=== PATIENT | female | born 1940 | race Caucasian/White ===

== ENCOUNTER → 2017-01-29 | Outpatient (CLI) | payer OTHER ==
[~2017-01-29] MED LIST: ALEN70TA4 PO; ASPCH81X PO; CELE100C PO; CYAN500T13 SL; ERGO500037 PO; ESCI10TA17 PO; HYDR1TAB2 PO; IBUP-1277 PO; LATA0.5S OPB; LISI-729 PO; METO1TAB31 PO; MONT1TAB3 PO; NVLGI SC; NXM/40 PO; TOLT4CAP PO
--- NOTE | 2017-01-29 11:23 | DIAGNOSTIC IMAGING REPORT ---
ABDOMEN COMPLETE (US) CLINICAL HISTORY: ANEMIA, SPLENOMEGALY COMPARISON STUDY: 07/11/2016 FINDINGS: There is a 12 mm left lobe hepatic cyst. The liver appears otherwise normal. The gallbladder surgically absent. The pancreas appears sonographically normal. There is no ductal dilatation. The common bile duct measures 5 mm. The spleen is enlarged measuring 18 cm. There is no evidence of abdominal aortic dilatation. No abnormalities of the IVC are visualized. The right kidney measures 14.4 cm in length. There are multiple right renal cysts including a cyst arising from the lower pole of the right kidney measuring 12.5 cm in maximal diameter. The left kidney measures 11.9 cm in length. No left renal masses are visualized. There is no hydronephrosis. IMPRESSION: 1. Stable splenomegaly (18 cm ) 2. Surgically absent gallbladder 3. 12 mm left lobe hepatic cyst 4. Right renal cysts measuring 12.5 cm and 5.3 cm. Electronically signed by: Rashel Leung M.D. 01/29/2017 11:22 AM Dictated Date/Time: 01/29/2017 11:18 AM
== END | disposition home or self-care (01) ==
LOC: C.ULTR 10:32
PROVIDERS: ATTEND Internal Medicine Hematology & Oncology
DX: R16.1 Splenomegaly, not elsewhere classified (principal); D64.9 Anemia, unspecified; N28.1 Cyst of kidney, acquired; K76.89 Other specified diseases of liver; Z90.49 Acquired absence of other specified parts of digestive tract

== ENCOUNTER → 2017-05-10 | Outpatient (CLI) | payer OTHER ==
[2017-05-10 15:43] LABS: HEMATOCRIT 34.2 % (37-47)
[2017-05-11 07:23] LABS: ESTIMATED AVERAGE GLUCOSE 91 mg/dl; HA1C FLAG Normal (Normal)
== END | disposition home or self-care (01) ==
LOC: C.LAB1850 14:25
PROVIDERS: ATTEND Nurse Practitioner Adult Health
DX: E11.39 Type 2 diabetes mellitus with other diabetic ophthalmic complication (principal)

== ENCOUNTER → 2017-05-17 | Outpatient (CLI) | payer OTHER ==
[2017-05-17 15:35] LABS: ALT/SGPT 16 U/L (12-78); AST/SGOT 12 U/L (15-37); BLOOD UREA NITROGEN 15 mg/dl (7-18); BUN/CREATININE RATIO 16.7 (10-20); CALCIUM 8.9 mg/dl (8.5-10.1); CARBON DIOXIDE 31 mmol/L (21-32); CHLORIDE 103 mmol/L (98-107); CHOLESTEROL 96 mg/dl (0-200); CREATININE 0.88 mg/dl (0.60-1.20); GLUCOSE 118 mg/dl (70-99); POTASSIUM 3.8 mmol/L (3.5-5.1); SODIUM 139 mmol/L (136-145); TRIGLYCERIDES 109 mg/dl (0-150); VERY LOW DENSITY LIPOPROT CALC 22 mg/dl
[2017-05-17 15:45] LABS: ALB/GLOB RATIO 1.1 (0.9-2); ALKALINE PHOSPHATASE 61 U/L (45-117); CHOLESTEROL/HDL RATIO 2.7; HDL CHOLESTEROL 35 mg/dl
[2017-05-17 15:49] LABS: RATIO 8.1 mcg/mg (0-30.0)
== END | disposition home or self-care (01) ==
LOC: C.LAB1850 14:16
PROVIDERS: ATTEND Nurse Practitioner Adult Health
DX: E78.5 Hyperlipidemia, unspecified (principal); E11.39 Type 2 diabetes mellitus with other diabetic ophthalmic complication; E11.319 Type 2 diabetes mellitus with unspecified diabetic retinopathy without macular edema; Z79.4 Long term (current) use of insulin; I10 Essential (primary) hypertension; K76.0 Fatty (change of) liver, not elsewhere classified; K31.84 Gastroparesis

== ENCOUNTER → 2017-08-26 | Outpatient (CLI) | payer OTHER ==
[~2017-08-26] MED LIST changes: +METO-478 PO; -METO1TAB31 PO
[2017-08-26 17:04] LABS: CREATININE 1.04 mg/dl (0.60-1.20)
[2017-08-27 07:13] LABS: ESTIMATED AVERAGE GLUCOSE 85 mg/dl; HA1C FLAG Normal (Normal)
== END | disposition home or self-care (01) ==
LOC: C.LAB1850 15:30
PROVIDERS: ATTEND Nurse Practitioner Adult Health
DX: E11.39 Type 2 diabetes mellitus with other diabetic ophthalmic complication (principal); I10 Essential (primary) hypertension; Z79.4 Long term (current) use of insulin

== ENCOUNTER 2017-11-20 05:33 | Inpatient (IN) | payer OTHER ==
[2017-10-31 12:10] VITALS: BMI 34.0
--- NOTE | 2017-10-31 12:54 | PAT Medication Instructions ---
Service Date Oct 31, 2017. Current Home Medication List Aspirin (Aspirin Chewable), 81 MG PO QAM Brimonidine Tartrate (Alphagan P Oph), 1 DROP OP QAM Celecoxib (Celebrex), 200 MG PO QAM Cyanocobalamin (Vitamin B12 500MCG), 500 MCG PO QAM Ergocalciferol (Vitamin D 20950 Unit), 50,000 UNIT PO WK Escitalopram (Lexapro), 10 MG PO HS Esomeprazole Magnesium (Nexium), 40 MG PO QAM Ibuprofen (Advil), 400 MG PO Q6-8HR PRN Insulin Aspart (novoLOG INSULIN PUMP ), 1 EA N/A UD Latanoprost (Xalatan 0.005% Oph Jeri), 1 DROP OPB HS Lisinopril (Zestril), 5 MG PO QAM Metoprolol Tartrate (Lopressor) (Lopressor), 25 MG PO QAM Montelukast Sodium (Singulair), 10 MG PO QAM Multivitamin (Multivitamin), 1 TAB PO QAM Naproxen (Aleve), 220 MG PO QPM, Solifenacin (Vesicare), 10 MG PO QAM [Calcium], 1 TAB PO QAM Medication Instructions For Your Scheduled Surgery - Check with surgeon for instructions: Naproxen (Aleve), 220 MG PO QPM, Celecoxib (Celebrex), 200 MG PO QAM Ibuprofen (Advil), 400 MG PO Q6-8HR PRN - Check with surgeon and park landscape architect for instructions: Aspirin (Aspirin Chewable), 81 MG PO QAM - Hold the following medications the morning of surgery: Cyanocobalamin (Vitamin B12 500MCG), 500 MCG PO QAM Ergocalciferol (Vitamin D 80441 Unit), 50,000 UNIT PO WK Lisinopril (Zestril), 5 MG PO QAM Montelukast Sodium (Singulair), 10 MG PO QAM Multivitamin (Multivitamin), 1 TAB PO QAM Solifenacin (Vesicare), 10 MG PO QAM [Calcium], 1 TAB PO QAM - Take the following medications the morning of surgery with a sip of water: Metoprolol Tartrate (Lopressor) (Lopressor), 25 MG PO QAM Esomeprazole Magnesium (Nexium), 40 MG PO QAM Brimonidine Tartrate (Alphagan P Oph), 1 DROP OP QAM - Take the following medications as scheduled the night before surgery: Latanoprost (Xalatan 0.005% Oph Jeri), 1 DROP OPB HS Escitalopram (Lexapro), 10 MG PO HS - For Insulin Dependent Diabetic patients: Test blood sugar A.M. of surgery. Set insulin pump to basal setting (no bolus dose AM day of surgery. If you have any questions please call us at [phone] or [phone] or [phone]
[2017-10-31 13:22] LABS: EOS % 0.8 %; EOS ABS # 0.03 K/uL (0-0.5); HEMATOCRIT 34.1 % (37-47); HEMOGLOBIN 10.9 g/dL (12.0-16.0); IG# 0.03 K/uL (0.00-0.02); LYMPH % 24.5 %; LYMPH ABS # 0.92 K/uL (1.2-3.4); MEAN CELL VOLUME 91.9 fL (80-100); MEAN CORPUSCULAR HEMOGLOBIN 29.4 pg (25-34); MEAN PLATELET VOLUME 9.3 fL (7.4-10.4); MONO % 6.4 %; MONO ABS # 0.24 K/uL (0.11-0.59); NEUT % 67.5 %; NEUT ABS # 2.53 K/uL (1.4-6.5); PLATELET COUNT 108 K/uL (130-400); RED CELL DISTRIBUTION WIDTH SD 46.6 fL (36.4-46.3); WHITE BLOOD COUNT 3.75 K/uL (4.8-10.8)
[2017-10-31 13:28] LABS: PTT PATIENT 26.7 SECONDS (21.0-31.0)
--- NOTE | 2017-10-31 14:12 | DIAGNOSTIC IMAGING REPORT ---
TWO VIEW CHEST CLINICAL HISTORY: Preoperative examination. FINDINGS: PA and lateral chest radiographs are compared to study dated 11/06/2012. The heart is top normal for projection. The mediastinal contour is within normal limits. There is mild elevation of the right hemidiaphragm. The lungs and pleural spaces are clear. There is no pneumothorax. The skeletal structures are osteopenic. The bony thorax appears intact. IMPRESSION: No active disease in the chest. Electronically signed by: Robert Kruger M.D. 10/31/2017 2:11 PM Dictated Date/Time: 10/31/2017 2:11 PM
[2017-11-01 06:11] LABS: HEMOGLOBIN A1C 4.7 % (4.5-5.6)
--- NOTE | 2017-11-19 21:36 | History and Physical ---
History & Physical Date Nov 19, 2017. Chief Complaint right ankle pain History of Present Illness The patient is a 77 year old female with complaints of a 2 year hx of right ankle pain. She has been treated conservatively for ankle arthritis, however she has failed all conservative tx's. She is now being set up for a total ankle replacement. Past Medical/Surgical History PMH: HTN, hx of irregular heart beat, sleep apnea with use of a CPAP, Acid reflux, obesity, hx of kidney stones, cirrhosis social hx: Denies tobacco and alcohol use Past surgical hx: cholecystectomy, hysterectomy, bowel resections x 4, kidney stone surgeries, bilateral cataract surgeries, bilateral glaucoma surgeries, ileostomy Allergies Coded Allergies: Latex1 -Allergic Contact Dermititis (Verified Allergy, Intermediate, RASH LOCALIZED, 10/31/17) Erythromycin (Verified Allergy, Mild, RASH, 10/31/17) Quinolones (Verified Allergy, Mild, RASH, 10/31/17) Replaces CIPRO HC Chlorhexidine (Verified Allergy, Unknown, SKIN BLISTERS, 10/31/17) Ciprofloxacin (Verified Allergy, Unknown, RASH, 10/31/17) Isopropyl Alcohol (Verified Allergy, Unknown, SKIN BLISTERS, 10/31/17) Hydromorphone (Verified Adverse Reaction, Intermediate, RASH, 10/31/17) Iron (Verified Adverse Reaction, Intermediate, CHEST PAIN, IRON DEXTRAN, 10/31/17) Morphine (Verified Adverse Reaction, Unknown, RASH -HIVE LIKE, 10/31/17) Home Medications Scheduled Aspirin (Aspirin Chewable), 81 MG PO QAM Brimonidine Tartrate (Alphagan P Oph), 1 DROP OP QAM Celecoxib (Celebrex), 200 MG PO QAM Cyanocobalamin (Vitamin B12 500MCG), 500 MCG PO QAM Ergocalciferol (Vitamin D 20466 Unit), 50,000 UNIT PO WK Escitalopram (Lexapro), 10 MG PO HS Esomeprazole Magnesium (Nexium), 40 MG PO QAM Ibuprofen (Advil), 400 MG PO Q6-8HR PRN Insulin Aspart (novoLOG INSULIN PUMP ), 1 EA N/A UD Latanoprost (Xalatan 0.005% Oph Jeri), 1 DROP OPB HS Lisinopril (Zestril), 5 MG PO QAM Metoprolol Tartrate (Lopressor) (Lopressor), 25 MG PO QAM Montelukast Sodium (Singulair), 10 MG PO QAM Multivitamin (Multivitamin), 1 TAB PO QAM Naproxen (Aleve), 220 MG PO QPM, Solifenacin (Vesicare), 10 MG PO QAM [Calcium], 1 TAB PO QAM Physical Examination Skin: warm/dry, no rash Eyes: normal inspection ENT: normal ENT inspection Head: normocephalic, atraumatic Neck: supple, no adenopathy, trachea midline Respiratory/Chest: lungs clear, normal breath sounds, no respiratory distress Cardiovascular: regular rate, rhythm, no murmur Abdomen / GI: normal bowel sounds, non tender Extremities: + pertinent finding (Antalgic right gait. Right ankle: swelling anterior and posterior ankle. Tender at the anterior ankle. Painful PROM. Limited ROM, particularly with dorsiflexion.) Neurologic/Psych: no motor/sensory deficits, alert, oriented x 3 Diagnosis Right ankle osteoarthritis Right ankle Achilles contracture Plan of Treatment Recommend a right ankle STAR total ankle replacement, perc. INDIGO, application PRP. All potential risks, benefits, complications, alternatives, and rehab have been discussed with the patient and she wishes to proceed. She will be scheduled for 11.20.17 with plan for ASA 81 mg BID x 30 days for DVT prophylaxis.
[~2017-11-20] VITALS: Ht 165.1 cm; Wt 93.8 kg
[2017-11-20] VITALS (8 sets, daily range): BP systolic 104–130; BP diastolic 59–75; PULSE 81–104; TEMP 36.5–36.9; O2SAT 91–97; Ht 165.1 cm; Wt 93.8 kg
[~2017-11-20 05:33] MED LIST changes: -ALEN70TA4 PO; +BRIM0.1S OP; +CALC-51 PO; +CYAN500T13 PO; -CYAN500T13 SL; -HYDR1TAB2 PO; +INSPMPNVLG; -METO-478 PO; +METO25TA56 PO; +MULT-506 PO; +NAPR1TAB9 PO; -NVLGI SC; +SOLI10TA2 PO; -TOLT4CAP PO
[2017-11-20] MEDS ORDERED: GABAPENTIN 300 MG CAP PO SCH (06:00)
[2017-11-20] MEDS ORDERED: METOCLOPRAMIDE HCL 10 MG TAB PO SCH (06:00)
[2017-11-20] MEDS ORDERED: FAMOTIDINE 20 MG TAB PO SCH (06:00)
[2017-11-20] MEDS ORDERED: ACETAMINOPHEN 500 MG TAB PO SCH (06:00)
[2017-11-20] MEDS ORDERED: CeleBREX 200 MG CAP PO SCH (06:00)
[2017-11-20] MEDS ORDERED: DEXAMETHASONE 4 MG TAB PO SCH (06:00)
[2017-11-20] MEDS ORDERED: ROPIVACAINE 5MG/ML 30 ML 150 MG, BUPIVACAINE 0.5% MPF INJ 30 ML, EpINEphrine HCL INJ 0.... INFIL SCH ×8 (06:00)
[2017-11-20] MEDS ORDERED: CEFAZOLIN 2000MG IV PUSH 10 ML IV SCH (06:00)
[2017-11-20] MEDS ORDERED: LACTATED RINGER'S 1000ML 1,000 ML IV SCH (06:00)
[2017-11-20] MEDS ORDERED: LACTATED RINGER'S 1000ML IV SCH (06:00)
[2017-11-20] MEDS ORDERED: CLINDAMYCIN 600 MG/54 ML D5W IV SCH (06:00)
[2017-11-20] MEDS ORDERED: BUPIVACAINE 0.25% 30 ML VIAL ONE (06:19)
[2017-11-20] MEDS ORDERED: ROPIVACAINE 0.5% 5 MG/ML 30 ML VIAL ONE (06:19)
[2017-11-20] MEDS ORDERED: THROMBIN 5000 UNITS KIT ONE (06:53)
[2017-11-20] MEDS ORDERED: CALCIUM CHLORIDE 10% 10 ML SYR ONE (06:53)
[2017-11-20] MEDS ORDERED: BACITRACIN 50000 UNIT VIAL ONE (06:53)
[2017-11-20] MEDS ORDERED: FENTANYL CITRATE INJ 50 MCG/1 ML 2 ML VIAL ONE (06:59)
[2017-11-20] MEDS ORDERED: MIDAZOLAM HCL 1 MG/ML 2ML VIAL ONE (06:59)
[2017-11-20] MEDS ORDERED: EpHEDrine SULFATE INJ 50 MG/ML AMP IV PRN (07:30)
[2017-11-20] MEDS ORDERED: ATROPINE SULFATE 0.1 MG/ML 5ML SYR IV PRN (07:30)
[2017-11-20] MEDS ORDERED: ONDANSETRON INJ 2 MG/ML 2 ML VIAL IV PRN ×2 (07:30→12:00)
[2017-11-20] MEDS ORDERED: PHENYLEPHRINE 100MCG/ML 5ML SYR IV PRN (07:30)
[2017-11-20] MEDS: TRANEXAMIC ACID INJ 1,000 MG in SYRINGE 0 ML IV SCH ×2 (07:40→13:59)
--- NOTE | 2017-11-20 07:47 | History & Physical Bridge Note ---
H&P Re-Evaluation Bridge Note: I have examined the patient, reviewed the History & Physical and in the interval since the performance of the History & Physical I have noted the following changes of clinical significance: No changes noted
[2017-11-20] MEDS ORDERED: PROPOFOL IV EMULSION 10 MG/ML 20 ML VIAL IV ONE (09:50)
[2017-11-20] MEDS ORDERED: LIDOCAINE HCL 2% 2 ML VIAL (20MG/ML) ONE (09:50)
[2017-11-20] MEDS ORDERED: GLYCOPYRROLATE INJ 0.2 MG/ML VIAL ONE (09:50)
[2017-11-20] MEDS ORDERED: ROCURONIUM BROMIDE 10 MG/ML 5 ML VIAL IV ONE (09:50)
[2017-11-20] MEDS ORDERED: NEOSTIGMINE METHYLSULFATE 5 MG/5 ML SYR ONE (09:50)
--- NOTE | 2017-11-20 11:11 | [facility] Post Operative Brief Note ---
Immediate Operative Summary Operative Date Nov 20, 2017. Pre-Operative Diagnosis Right ankle DJD, Ankle osteoarthritis Right ankle Achilles contracture Post-Operative Diagnosis Right ankle DJD, Ankle osteoarthritis Right ankle Achilles contracture Procedure(s) Performed 1. Right STAR Total Ankle Arthroplasty, 2. Application of Platelet Rich Plasma, 3. Percutaneous Tendon Achilles Lengthening Surgeon Dr. Florian Bobby Acquisitions Assistant Surgeon(s) Daniel Blair PA-C Estimated Blood Loss 25 ML Findings see dict Specimens None per Surgeon Drains HV x 1 Anesthesia GETT w/ popliteal block and adductor canal block Complication(s) None Disposition Recovery Room / PACU
--- NOTE | 2017-11-20 11:29 | DIAGNOSTIC IMAGING REPORT ---
R ANKLE 2 VIEWS CLINICAL HISTORY: RT TOTAL ANKLE COMPARISON STUDY: No previous studies for comparison. Fluoroscopy time: 2.14 minutes. FINDINGS: 2 fluoroscopic images demonstrate findings consistent with a right tibiotalar joint arthroplasty. Hardware is intact. Surgical drain is in place. There is no acute fracture. A few skin paresh project posterior to the distal talus. IMPRESSION: Expected findings following right tibiotalar joint arthroplasty. Electronically signed by: Reno Phelps M.D. 11/20/2017 11:28 AM Dictated Date/Time: 11/20/2017 11:27 AM
[2017-11-20] MEDS ORDERED: NovoLOG INSULIN PUMP SCH (12:00)
[2017-11-20] MEDS ORDERED: ZOLPIDEM TARTRATE 5 MG TAB PO PRN (12:00)
[2017-11-20] MEDS ORDERED: BISACODYL 10 MG SUPP PR PRN (12:00)
[2017-11-20] MEDS ORDERED: SODIUM CHLORIDE 0.9% IV SCH (12:00)
[2017-11-20] MEDS ORDERED: MAGNESIUM HYDROXIDE SUSP 30 ML UDC PO PRN (12:00)
[2017-11-20] MEDS ORDERED: SOD PHOSPHATE/SOD BIPHOSPHATE ENEMA 132 ML BTL PR PRN (12:00)
[2017-11-20] MEDS ORDERED: CEFAZOLIN IV SCH (12:00)
[2017-11-20] MEDS ORDERED: ALUMINUM/MAGNESIUM/SIMETH (MAALOX MAX) 30 ML UDC PO PRN (12:00)
--- NOTE | 2017-11-20 12:08 | OPERATIVE REPORT ---
DATE OF OPERATION: 11/20/2017 PREOPERATIVE DIAGNOSES: 1. Right ankle degenerative joint disease. 2. Osteoarthritis of the right ankle. 3. Achilles tendon contracture. POSTOPERATIVE DIAGNOSES: Same. PROCEDURE: 1. Right STAR total ankle replacement using a size extra small talus, a medium sized tibia and a 7-mm polyethylene. 2. Percutaneous tendon Achilles lengthening. 3. Application of platelet rich plasma concentrate. SURGEON: Dr. Florian Bobby. POULTRY HATCHERY LABORER: Daniel Blair PA-C, who was present for patient positioning, sterile prep and drape, management of retractors and instruments. He was present through the critical portions of the case including wound closure, application of sterile dressing and transport of the patient to recovery. ANESTHESIA: General endotracheal tube with popliteal block and adductor canal block, right lower extremity. SPECIMENS: Bone and tissue. DRAINS: Hemovac x1. COMPLICATIONS: None. BLOOD LOSS: 25 mL. PERTINENT HISTORY: This is a 77-year-old female who had chronic progressive and ongoing worsening of right ankle degenerative joint disease and pain with complete loss of joint space, marginal osteophytes and subchondral sclerosis on the radiographs. She had attempted and failed all conservative measures, including brace application, use of an assistive device, anti-inflammatories, rest, activity modification, lifestyle modification and intra-articular injections. She is scheduled for surgery as indicated. All potential risks, benefits, complications, alternatives, rehab, potential for incomplete relief of symptoms, need for further surgery, DVT, PE, , persistent pain, swelling, scarring, weakness, neurovascular injury, wound complications, hardware failure, nonunion, and malunion were discussed with the patient. The patient decided to proceed with the procedure as indicated. DESCRIPTION OF PROCEDURE: The patient was taken to the operative suite after popliteal block was administered. The patient was placed supine on the operating room table. Tourniquet was applied over the right lower extremity. After the patient was anesthetized, LMA was placed. The right lower extremity was then sterilely prepped and draped in the usual sterile fashion [id number], elevated and exsanguinated with an Esmarch bandage, and tourniquet inflated to 350 mmHg. An 11 blade scalpel was used to make a 3-part percutaneous fractional lengthening of the posterior Achilles tendon. Palpable partial release and relative lengthening of the Achilles was noted. The 3 small incisions were closed with skin paresh. Next, a 15-blade scalpel incision made in the midline of the right ankle taking care to identify the tibialis anterior. The incision was made lateral to the tibialis anterior and centered over the extensor hallucis longus tendon. The incision was deepened through subcutaneous tissue. Meticulous hemostasis was achieved with electrocautery. Full-thickness skin flaps were developed. Superficial peroneal nerve was identified, retracted, and protected. Next, the extensor retinaculum was incised along the skin incision to the lateral aspect of the tibialis anterior. Tibialis anterior was retracted medially. The extensor hallucis longus and the neurovascular bundle beneath were retracted laterally. The small crossing vessels were cauterized. The anterior capsule was then incised in its midline and then elevated medially and laterally with electrocautery. There was noted to be an attritional rupture of the extensor hallucis longus tendon. The tendons were retracted and protected. Appropriate soft tissue retractors were placed carefully to maintain essentially zero skin tension on the superficial skin. After the capsule was elevated and retracted medially and laterally to visualize the medial and lateral malleoli clearly, rongeur was used to perform synovectomy and remove any excess debris and loose bodies. Next, the wound was irrigated and suctioned. Good visualization was obtained. At this point the anterior lip of hypertrophic bone was resected from the tibia with an osteotome and mallet followed by resection of a small osteophyte medially at the medial malleolus. Next, the tibial plafond could be clearly visualized. The neck of the talus was then rongeured down to the true neck of the talus after all hypertrophic osteophytes were excised. Next, attention was directed toward the proximal tibia at which point a 15-blade scalpel incision was made anterior of the tibial tubercle the inferior aspect using the external alignment guide as a guide for pin placement which was essentially in the midline of the tibia with a slight degree of plantar flexion. Guide was placed anteriorly using a small osteotome in the medial gutter of the ankle joint to shactor helper in alignment. Next, the small 2.4 mm pin was placed adjacent to the tibial tubercle and the alignment guide was placed approximately one fingerbreadth above the soft tissue and fastened there at approximately four notches medialized proximally. Next, the T-handle guide was placed anteriorly and then this was aligned with the small osteotome and placed in the medial gutter of the ankle joint to make this parallel and then also the orientation of the second ray of the foot was used to guide as well. Next, the more proximal alignment block was pinned unicortically followed by placement of the lateral alignment guide on the tibial alignment jig and the T-handle was removed. Distal cutting block was then fastened to the distal aspect of the tibial alignment guide and then x-rays obtained in AP and lateral projections of the ankle and tibia assuring appropriate alignment of the tibial alignment guide and the tibial cutting block. After appropriate alignment was established, the distal cutting block was then pinned in place with two 2.4 mm pins, one in the proximal and then secondarily in the distal aspect of the tibial cutting guide and the tibial cutting guide was aligned at the inferior aspect at the level of the tibial plafond. Next, after the tibial cutting blocks were aligned and confirmed, the medial and lateral saw capture pins were placed followed by resection of the distal tibia with a sagittal saw. The pins were removed and the distal cutting guide was then removed followed by removal of the distal tibial cut fragment after it was morselized with a small osteotome and resected with a rongeur. A cervical lamina bear keeper was placed in the ankle joint to open the ankle joint followed by resection of the posterior fragments from the distal tibia cut. Next, the talar cutting guide paddle was placed at the distal tibial cutting guide and fastened in place. The ankle was held in neutral dorsiflexion. Four pins were placed in the talar cutting block fixing the talus in appropriate alignment. Next, after the saw capture pins were placed, the sagittal saw was used to resect the superior aspect of the talus. The talar cutting block guide was then removed as well as the pins and talus. This was then followed by placement of datum guide which was initially placed as an extra small position with regard to position on the talus as well as orientation along the second ray. Central pin was placed and then the posterior capture cutting guide was attached and the anterior milling guide was also fastened with two football screws. Next, the anterior mill was used to resect the anterior aspect of the talar dome. Posterior cut was made. This jig was then removed followed by placement of the shoulder cutting guide and the reciprocating saw was just resect the shoulder portions of the talus using the laser cut line. This guide was then removed leaving the central pin followed by resection of the fragments using a small osteotome and mallet. This was then elevated and resected. Next, the window trial was firmly affixed to the superior aspect of the talus using fluoroscopic confirmation of alignment and position. Next, the central keel was drilled. The window trial was then removed following use of the central keel punch. This was also confirmed using fluoroscopic sales and marketing assistant. The wound was copiously irrigated with pulsatile lavage with Bacitracin additive followed by suctioning of the talar component. Platelet-rich plasma was injected at this time at the undersurface of the implant as well as in the talar dome. The final talar component was impacted in place with fluoroscopic assistance. Next, a trial polyethylene 6 mm was placed in the joint and the posterior aspect of the tibia was measured both medially and laterally. Appropriate size tibial drill guide was then placed and fastened with two pins. This was confirmed with x-ray and then the barrel drills x 2 were performed making certain to aim proximally. Next, the barrel cutting jig was then used to perform the final punch medially and laterally. The trial plate was then removed after appropriate sized polyethylene was sized. Next, the joint was copiously irrigated with pulsatile lavage followed by suctioning of all surfaces. The tibia was then injected with platelet-rich plasma as well as the superior aspect of the tibial final plate implant. This was then impacted in place with the trial polyethylene liner in place to ensure adequate positioning. Next, the final impactor was used to seat the tibial base tray flush with the anterior aspect of the tibia followed by bone grafting of the anterior barrel holes with local bone graft. This was impacted in place with a mallet and bone tamp. This then followed by confirmation with C-arm and then final polyethylene was inserted without difficulty. Excellent range of motion and stability was obtained. No liftoff was noted. The platelet-rich plasma was then sprayed within the joint and all surfaces and also into the subcutaneous tissue and deep soft tissue. A 10-Angolan single-lumen Hemovac drain was placed anterolaterally followed by closure of the ankle joint capsule with #1 Vicryl. An attritional tear in the extensor Hallucis Longus tendon was noted. The extensor hallucis longus tendon was then reapproximated and repaired using a #2 FiberWire suture using a modified Vlades suture. The tendon was well approximated and functional. The extensor retinaculum was closed using interrupted 2-0 Vicryl, the dermis closed buried 3-0 Vicryl, and skin was closed using 4-0 nylon. A sterile compressive bulky Patrick Avendaño plaster splint was applied overwrapped with an Abebe wrap. Tourniquet was released. The patient was awakened and taken to recovery in stable condition. I attest to the content of the Intraoperative Record and any orders documented therein. Any exceptions are noted below. MTDD
--- NOTE | 2017-11-20 12:23 | Anesthesiology Progress Note ---
Anesthesia Post Op Note Date & Time Nov 20, 2017 at 12:23 Vital Signs Pain Intensity: 0 Vital Signs Past 12 Hours Date Time Temp Pulse Resp B/P (MAP) Pulse Ox O2 Delivery O2 Flow Rate FiO2 11/20/17 12:10 37 99 17 127/63 94 Nasal Cannula 3 11/20/17 12:00 99 16 140/63 95 Oxymask 8 11/20/17 11:50 106 14 124/52 97 Oxymask 8 11/20/17 11:40 102 15 146/63 96 Oxymask 8 11/20/17 11:34 37 104 16 149/71 99 Oxymask 8 11/20/17 05:55 36.9 81 20 123/59 93 Room Air Notes Mental Status: alert / awake / arousable, participated in evaluation Pt Amnestic to Procedure: Yes Nausea / Vomiting: adequately controlled Pain: adequately controlled Airway Patency, RR, SpO2: stable & adequate BP & HR: stable & adequate Hydration State: stable & adequate Anesthetic Complications: no major complications apparent
[2017-11-20] MEDS: FENTANYL CITRATE INJ 50 MCG/1 ML 2 ML VIAL IV PRN ×2 (12:30→12:35)
[2017-11-20] MEDS ORDERED: ONDANSETRON INJ 2 MG/ML 2 ML VIAL ONE (12:39)
--- NOTE | 2017-11-20 12:57 | DIAGNOSTIC IMAGING REPORT ---
R ANKLE MIN 3 VIEWS ROUTINE HISTORY: 77 years-old Female post op status post right tibiotalar arthroplasty COMPARISON: Right ankle radiographs 11/20/2017 TECHNIQUE: 3 views of the right ankle FINDINGS: Postoperative changes compatible with tibiotalar arthroplasty. Alignment is satisfactory. Fine bony detail obscured by overlying casting material. Surgical drain is in place. Bones appear mildly demineralized. Mild spurring about the calcaneus. IMPRESSION: Status post right tibiotalar arthroplasty with satisfactory alignment. The above report was generated using voice recognition software. It may contain grammatical, syntax or spelling errors. Electronically signed by: Lazaro Meehan M.D. 11/20/2017 12:56 PM Dictated Date/Time: 11/20/2017 12:55 PM
--- NOTE | 2017-11-20 13:49 | Medical Consult ---
Consultation Date of Consultation: Nov 20, 2017. Attending Physician: Florian Bobby D.O. Reason for Consultation: Medical management History of Present Illness This is a 77 yo F with PMHx of HTN, irregular heartbeat, DM II on insulin pump, peripheral neuropathy, diabetic retinopathy, HLD, obesity, LYDIA on CPAP, cirrhosis, GERD, mild splenomegaly who underwent elective Right total ankle replacement and percutaneous tendon Achilles lengthening by Dr. Bobby on . Past Medical/Surgical History PMHx: Surgical Hx: cholecystectomy hysterectomy bowel resections x 4 kidney stone surgeries bilateral cataract surgeries bilateral glaucoma surgeries ileostomy Social History Smoking Status: Never Smoker Allergies Coded Allergies: Latex1 -Allergic Contact Dermititis (Verified Allergy, Intermediate, RASH LOCALIZED, 11/20/17) Erythromycin (Verified Allergy, Mild, RASH, 11/20/17) Quinolones (Verified Allergy, Mild, RASH, 11/20/17) Replaces CIPRO HC Chlorhexidine (Verified Allergy, Unknown, SKIN BLISTERS, 11/20/17) Ciprofloxacin (Verified Allergy, Unknown, RASH, 11/20/17) Isopropyl Alcohol (Verified Allergy, Unknown, SKIN BLISTERS, 11/20/17) Hydromorphone (Verified Adverse Reaction, Intermediate, RASH, 11/20/17) Iron (Verified Adverse Reaction, Intermediate, CHEST PAIN, IRON DEXTRAN, ) Morphine (Verified Adverse Reaction, Unknown, RASH -HIVE LIKE, 11/20/17) Current Inpatient Medications Current Inpatient Medications Medications (Trade) Dose Ordered Sig/Rohan Route Start Time Stop Time Status Last Admin Dose Admin Lactated Ringer's 1,000 ml @ 60 mls/hr [id number] IV 11/20/17 06:00 11/20/17 22:39 11/20/17 06:28 60 MLS/HR Cefazolin Sodium 10 ml @ 2.5 mls/min PREOP IV 11/20/17 06:00 11/20/17 18:00 11/20/17 07:57 2.5 MLS/MIN Acetaminophen (Tylenol Tab) 1,000 mg PREOP PO 11/20/17 06:00 11/20/17 18:00 11/20/17 06:31 1,000 MG Celecoxib (CeleBREX CAP) 200 mg PREOP PO 11/20/17 06:00 11/20/17 18:00 11/20/17 06:29 200 MG Dexamethasone (Decadron Tab) 8 mg PREOP PO 11/20/17 06:00 11/20/17 18:00 11/20/17 06:30 8 MG Famotidine (Pepcid Tab) 20 mg PREOP PO 11/20/17 06:00 11/20/17 18:00 11/20/17 06:30 20 MG Gabapentin (Neurontin Cap) 300 mg PREOP PO 11/20/17 06:00 11/20/17 18:00 11/20/17 06:30 300 MG Metoclopramide HCl (Reglan Tab) 10 mg PREOP PO 11/20/17 06:00 11/20/17 18:00 11/20/17 06:30 10 MG Lactated Ringer's 1,000 ml @ 15 mls/hr Q24H IV 11/20/17 06:00 11/20/17 18:00 Celecoxib (CeleBREX CAP) 200 mg QAM PO 11/21/17 09:00 12/21/17 08:59 UNV Cyanocobalamin (Vitamin B-12 Tab) 500 mcg QAM PO 11/21/17 09:00 12/21/17 08:59 UNV Ergocalciferol (Vitamin D Cap) 1,000 interunit DAILY PO 11/21/17 09:00 12/21/17 08:59 UNV Escitalopram Oxalate (Lexapro Tab) 10 mg HS PO 11/20/17 21:00 12/20/17 20:59 UNV Insulin Aspart (novoLOG INSULIN PUMP) 1 ea UD N/A 11/20/17 12:00 12/20/17 11:59 UNV Latanoprost (Xalatan Oph Soln) 1 drops HS OPB 11/20/17 21:00 12/20/17 20:59 UNV Lisinopril (Zestril Tab) 5 mg QAM PO 11/21/17 09:00 12/21/17 08:59 UNV Metoprolol Tartrate (Lopressor Tab) 25 mg QAM PO 11/21/17 09:00 12/21/17 08:59 UNV Montelukast Sodium (Singulair Tab) 10 mg QAM PO 11/21/17 09:00 12/21/17 08:59 UNV Multivitamins (Multivitamin Tab) 1 tab QAM PO 11/21/17 09:00 12/21/17 08:59 UNV Non-Formulary Medication (Brimonidine Tartrate (Alphagan P Oph)) 1 drop QAM OP 11/21/17 09:00 12/21/17 08:59 UNV Non-Formulary Medication (Esomeprazole Magnesium (Nexium)) 40 mg QAM PO 11/21/17 09:00 12/21/17 08:59 UNV Non-Formulary Medication (Solifenacin (Vesicare)) 10 mg QAM PO 11/21/17 09:00 12/21/17 08:59 UNV Non-Formulary Medication ([Calcium] ) 1 tab QAM PO 11/21/17 09:00 12/21/17 08:59 UNV Potassium Chloride 10 meq/ Sodium Chloride 1,005 ml @ 100 mls/hr Q10H3M IV 11/20/17 11:48 12/20/17 11:47 UNV Oxycodone HCl (Roxicodone Immediate Rel Tab) 1-2 TABS FOR PAIN 1 TABLET ... Q4H PRN PO 11/20/17 12:00 12/04/17 11:59 UNV Oxycodone HCl (Oxycontin Tab) 10 mg Q12 PO 11/20/17 21:00 11/22/17 20:59 UNV Acetaminophen (Tylenol Tab) 1,000 mg Q8H PO 11/20/17 12:00 12/20/17 11:59 UNV Magnesium Hydroxide (Milk Of Magnesia Susp) 30 ml Q6H PRN PO 11/20/17 12:00 12/20/17 11:59 UNV Bisacodyl (Dulcolax Supp) 10 mg DAILY PRN [place] 11/20/17 12:00 12/20/17 11:59 UNV Sodium Biphosphate/ Sodium Phosphate (Fleet Enema) 132 ml DAILY PRN [place] 11/20/17 12:00 12/20/17 11:59 UNV Senna (Senokot Tab) 17.2 mg HS PO 11/20/17 21:00 12/20/17 20:59 UNV Docusate Sodium (coLACE CAP) 100 mg BID PO 11/20/17 21:00 12/20/17 20:59 UNV Diphenhydramine HCl (Benadryl Cap) 25 mg Q8H PRN PO 11/20/17 12:00 12/20/17 11:59 UNV Al Hydrox/Mg Hydrox/Simethicone (Maalox Max Susp) 15 ml Q4H PRN PO 11/20/17 12:00 12/20/17 11:59 UNV Zolpidem Tartrate (Ambien Tab) 5 mg HSZ PRN PO 11/20/17 12:00 12/20/17 11:59 UNV Ondansetron HCl (Zofran Inj) 4 mg Q6H PRN IV 11/20/17 12:00 12/20/17 11:59 UNV Cefazolin Sodium 2000 mg/Sodium Chloride 60 ml @ 100 mls/hr Q8H IV 11/20/17 12:00 11/20/17 20:35 UNV Aspirin (Ecotrin Tab) 81 mg Q12 PO 11/20/17 21:00 12/20/17 20:59 UNV Physical Exam Date Time Temp Pulse Resp B/P (MAP) Pulse Ox O2 Delivery O2 Flow Rate FiO2 11/20/17 12:55 105 14 130/68 94 Nasal Cannula 3 11/20/17 12:40 104 16 135/61 93 Nasal Cannula 3 11/20/17 12:30 99 16 135/72 95 Nasal Cannula 3 11/20/17 12:20 101 13 140/66 94 Nasal Cannula 3 11/20/17 12:10 37 99 17 127/63 94 Nasal Cannula 3 11/20/17 12:00 99 16 140/63 95 Oxymask 8 11/20/17 11:50 106 14 124/52 97 Oxymask 8 11/20/17 11:40 102 15 146/63 96 Oxymask 8 11/20/17 11:34 37 104 16 149/71 99 Oxymask 8 11/20/17 05:55 36.9 81 20 123/59 93 Room Air Laboratory Results Last 24 Hours Test 11/20/17 05:59 11/20/17 10:29 11/20/17 11:40 Bedside Glucose 110 mg/dl 190 mg/dl 207 mg/dl
[2017-11-20] MEDS ORDERED: HydrALAZINE HCL 20 MG/ML VIAL IV. PRN (14:30)
--- NOTE | 2017-11-20 14:32 | Medical Consult ---
Consultation Date of Consultation: Nov 20, 2017. Attending Physician: Florian Bobby D.O. Reason for Consultation: Medical management History of Present Illness This is a 77 yo F with PMHx of HTN, irregular heartbeat, DM II on insulin pump, peripheral neuropathy, diabetic retinopathy, HLD, obesity, LYDIA on CPAP, cirrhosis, GERD, mild splenomegaly who underwent elective R total ankle replacement and percutaneous tendon Achilles lengthening by Dr. Bobby on . Hospitalist team was consulted for medical management. Patient feeling well postop. Tolerated lunch well. Pain is well controlled. No flatus/BM postop. Patient denies any fever, chills, sweats, lightheadedness, dizziness, vision changes, CP, palpitations, edema, SOB, wheezing, cough, abdominal pain, nausea, vomiting, diarrhea, urinary symptoms, melena, numbness/tingling, weakness, muscle/joint pain, anxiety/depression, active bleeding, or new skin discoloration/changes. Spoke w/ pharmacist- received call from Judy Seth last week about insulin pump. Patient was instructed what to do and pharmacy does not need consulted unless issues arise. Past Medical/Surgical History PMHx: HTN irregular heartbeat w/ h/o v-tach DM II on insulin pump peripheral neuropathy diabetic retinopathy HLD obesity LYDIA on CPAP cirrhosis GERD mild splenomegaly Surgical Hx: cholecystectomy hysterectomy bowel resections x 4 kidney stone surgeries bilateral cataract surgeries bilateral glaucoma surgeries ileostomy Family History CVA, DM Social History Smoking Status: Never Smoker Alcohol Use: none Marital Status: Housing Status: lives alone Allergies Coded Allergies: Latex1 -Allergic Contact Dermititis (Verified Allergy, Intermediate, RASH LOCALIZED, 11/20/17) Erythromycin (Verified Allergy, Mild, RASH, 11/20/17) Quinolones (Verified Allergy, Mild, RASH, 11/20/17) Replaces CIPRO HC Chlorhexidine (Verified Allergy, Unknown, SKIN BLISTERS, 11/20/17) Ciprofloxacin (Verified Allergy, Unknown, RASH, 11/20/17) Isopropyl Alcohol (Verified Allergy, Unknown, SKIN BLISTERS, 11/20/17) Hydromorphone (Verified Adverse Reaction, Intermediate, RASH, 11/20/17) Iron (Verified Adverse Reaction, Intermediate, CHEST PAIN, IRON DEXTRAN, ) Morphine (Verified Adverse Reaction, Unknown, RASH -HIVE LIKE, 11/20/17) Home Medications Reported Home Medications Medications Dose Route/Sig Max Daily Dose Days Date Category Dose Instructions Aleve (Naproxen) 220 Mg Tab 220 Mg PO QPM, 10/31/17 Reported Multivitamin (Multivitamins) Tab 1 Tab PO QAM 10/31/17 Reported [Calcium] 1 Tab PO QAM 10/31/17 Reported Alphagan P Oph (Brimonidine Tartrate) 0.1 % Jeri 1 Drop OP QAM 10/31/17 Reported Vesicare (Solifenacin) 10 Mg Tab 10 Mg PO QAM 10/31/17 Reported Lopressor (Metoprolol Tartrate) 25 Mg Tab 25 Mg PO QAM 10/31/17 Reported novoLOG INSULIN PUMP (Insulin Aspart) 1 Ea Inj 1 Ea N/A UD 10/31/17 Reported Advil (Ibuprofen) 200 Mg Tab 400 Mg PO Q6-8HR PRN 11/07/12 Reported Xalatan 0.005% Oph Jeri (Latanoprost) 0.005 % Jeri 1 Drop OPB HS 11/07/12 Reported Vitamin D 77167 Unit (Ergocalciferol) 50,000 Unit Cap 50,000 Unit PO WK 11/07/12 Reported FRIDAYS Vitamin B12 500MCG (Cyanocobalamin) 500 Mcg Tab 500 Mcg PO QAM 11/07/12 Reported Lexapro (Escitalopram Oxalate) 10 Mg Tab 10 Mg PO HS 11/07/12 Reported Singulair (Montelukast Sodium) 10 Mg Tab 10 Mg PO QAM 11/07/12 Reported Celebrex (Celecoxib) 100 Mg Cap 200 Mg PO QAM 11/07/12 Reported Nexium (Esomeprazole Magnesium) 40 Mg Cap 40 Mg PO QAM 11/07/12 Reported Zestril (Lisinopril) 5 Mg Tab 5 Mg PO QAM 11/07/12 Reported Aspirin Chewable (Aspirin) 81 Mg Chew 81 Mg PO QAM 11/07/12 Reported Current Inpatient Medications Current Inpatient Medications Medications (Trade) Dose Ordered Sig/Rohan Route Start Time Stop Time Status Last Admin Dose Admin Lactated Ringer's 1,000 ml @ 60 mls/hr [id number] IV 11/20/17 06:00 11/20/17 22:39 11/20/17 06:28 60 MLS/HR Cefazolin Sodium 10 ml @ 2.5 mls/min PREOP IV 11/20/17 06:00 11/20/17 18:00 11/20/17 07:57 2.5 MLS/MIN Acetaminophen (Tylenol Tab) 1,000 mg PREOP PO 11/20/17 06:00 11/20/17 18:00 11/20/17 06:31 1,000 MG Celecoxib (CeleBREX CAP) 200 mg PREOP PO 11/20/17 06:00 11/20/17 18:00 11/20/17 06:29 200 MG Dexamethasone (Decadron Tab) 8 mg PREOP PO 11/20/17 06:00 11/20/17 18:00 11/20/17 06:30 8 MG Famotidine (Pepcid Tab) 20 mg PREOP PO 11/20/17 06:00 11/20/17 18:00 11/20/17 06:30 20 MG Gabapentin (Neurontin Cap) 300 mg PREOP PO 11/20/17 06:00 11/20/17 18:00 11/20/17 06:30 300 MG Metoclopramide HCl (Reglan Tab) 10 mg PREOP PO 11/20/17 06:00 11/20/17 18:00 11/20/17 06:30 10 MG Lactated Ringer's 1,000 ml @ 15 mls/hr Q24H IV 11/20/17 06:00 11/20/17 18:00 Celecoxib (CeleBREX CAP) 200 mg QAM PO 11/21/17 09:00 12/21/17 08:59 UNV Cyanocobalamin (Vitamin B-12 Tab) 500 mcg QAM PO 11/21/17 09:00 12/21/17 08:59 UNV Ergocalciferol (Vitamin D Cap) 1,000 interunit DAILY PO 11/21/17 09:00 12/21/17 08:59 UNV Escitalopram Oxalate (Lexapro Tab) 10 mg HS PO 11/20/17 21:00 12/20/17 20:59 UNV Insulin Aspart (novoLOG INSULIN PUMP) 1 ea UD N/A 11/20/17 12:00 12/20/17 11:59 UNV Latanoprost (Xalatan Oph Soln) 1 drops HS OPB 11/20/17 21:00 12/20/17 20:59 UNV Lisinopril (Zestril Tab) 5 mg QAM PO 11/21/17 09:00 12/21/17 08:59 UNV Metoprolol Tartrate (Lopressor Tab) 25 mg QAM PO 11/21/17 09:00 12/21/17 08:59 UNV Montelukast Sodium (Singulair Tab) 10 mg QAM PO 11/21/17 09:00 12/21/17 08:59 UNV Multivitamins (Multivitamin Tab) 1 tab QAM PO 11/21/17 09:00 12/21/17 08:59 UNV Non-Formulary Medication (Brimonidine Tartrate (Alphagan P Oph)) 1 drop QAM OP 11/21/17 09:00 12/21/17 08:59 UNV Non-Formulary Medication (Esomeprazole Magnesium (Nexium)) 40 mg QAM PO 11/21/17 09:00 12/21/17 08:59 UNV Non-Formulary Medication (Solifenacin (Vesicare)) 10 mg QAM PO 11/21/17 09:00 12/21/17 08:59 UNV Non-Formulary Medication ([Calcium] ) 1 tab QAM PO 11/21/17 09:00 12/21/17 08:59 UNV Potassium Chloride 10 meq/ Sodium Chloride 1,005 ml @ 100 mls/hr Q10H3M IV 11/20/17 11:48 12/20/17 11:47 UNV Oxycodone HCl (Roxicodone Immediate Rel Tab) 1-2 TABS FOR PAIN 1 TABLET ... Q4H PRN PO 11/20/17 12:00 12/04/17 11:59 UNV Oxycodone HCl (Oxycontin Tab) 10 mg Q12 PO 11/20/17 21:00 11/22/17 20:59 UNV Acetaminophen (Tylenol Tab) 1,000 mg Q8H PO 11/20/17 12:00 12/20/17 11:59 UNV Magnesium Hydroxide (Milk Of Magnesia Susp) 30 ml Q6H PRN PO 11/20/17 12:00 12/20/17 11:59 UNV Bisacodyl (Dulcolax Supp) 10 mg DAILY PRN [place] 11/20/17 12:00 12/20/17 11:59 UNV Sodium Biphosphate/ Sodium Phosphate (Fleet Enema) 132 ml DAILY PRN [place] 11/20/17 12:00 12/20/17 11:59 UNV Senna (Senokot Tab) 17.2 mg HS PO 11/20/17 21:00 12/20/17 20:59 UNV Docusate Sodium (coLACE CAP) 100 mg BID PO 11/20/17 21:00 12/20/17 20:59 UNV Diphenhydramine HCl (Benadryl Cap) 25 mg Q8H PRN PO 11/20/17 12:00 12/20/17 11:59 UNV Al Hydrox/Mg Hydrox/Simethicone (Maalox Max Susp) 15 ml Q4H PRN PO 11/20/17 12:00 12/20/17 11:59 UNV Zolpidem Tartrate (Ambien Tab) 5 mg HSZ PRN PO 11/20/17 12:00 12/20/17 11:59 UNV Ondansetron HCl (Zofran Inj) 4 mg Q6H PRN IV 11/20/17 12:00 12/20/17 11:59 UNV Cefazolin Sodium 2000 mg/Sodium Chloride 60 ml @ 100 mls/hr Q8H IV 11/20/17 12:00 11/20/17 20:35 UNV Aspirin (Ecotrin Tab) 81 mg Q12 PO 11/20/17 21:00 12/20/17 20:59 UNV Physical Exam Date Time Temp Pulse Resp B/P (MAP) Pulse Ox O2 Delivery O2 Flow Rate FiO2 11/20/17 13:45 36.7 99 17 104/68 (80) 96 Nasal Cannula 2.0 11/20/17 12:55 105 14 130/68 94 Nasal Cannula 3 11/20/17 12:40 104 16 135/61 93 Nasal Cannula 3 11/20/17 12:30 99 16 135/72 95 Nasal Cannula 3 11/20/17 12:20 101 13 140/66 94 Nasal Cannula 3 11/20/17 12:10 37 99 17 127/63 94 Nasal Cannula 3 11/20/17 12:00 99 16 140/63 95 Oxymask 8 11/20/17 11:50 106 14 124/52 97 Oxymask 8 11/20/17 11:40 102 15 146/63 96 Oxymask 8 11/20/17 11:34 37 104 16 149/71 99 Oxymask 8 11/20/17 05:55 36.9 81 20 123/59 93 Room Air General Appearance: no apparent distress, + obese, + pertinent finding (O2 NC ) Head: normocephalic, atraumatic Eyes: PERRL ENT: hearing grossly normal Neck: supple Respiratory/Chest: lungs clear, no respiratory distress, no accessory muscle use Cardiovascular: + abnormal rhythm (irregular, regular rate ) Abdomen/GI: normal bowel sounds, non tender, soft Back: normal inspection Extremities/Musculoskelatal: no calf tenderness (to LLE), no pedal edema (to LLE), + pertinent finding (RLE in dressing, ice pack applied ) Neurologic/Psych: alert, normal mood/affect, oriented x 3 Skin: normal color, warm/dry, no rash Laboratory Results Last 24 Hours Test 11/20/17 05:59 11/20/17 10:29 11/20/17 11:40 11/20/17 13:47 Bedside Glucose 110 mg/dl 190 mg/dl 207 mg/dl 191 mg/dl Assessment & Plan This is a 77 y/o F with PMHx of HTN, irregular heartbeat, DM II on insulin pump , peripheral neuropathy, diabetic retinopathy, HLD, obesity, LYDIA on CPAP, cirrhosis, GERD, mild splenomegaly who underwent elective R total ankle replacement and percutaneous tendon Achilles lengthening by Dr. Bobby on . s/p R total ankle replacement and percutaneous tendon Achilles lengthening by Dr. Bobby on 11/20/17: - Surgical management, pain management, PT/OT, and DVT prophylaxis as per primary team - Bowel regimen ordered - Encourage incentive spirometer - Follow postop CBC and PRP HTN, irregular heartbeat, h/o v-tach- follows w/ [facility]: - Hold Lisinopril 5 mg daily pending postop PRP - Continue Metoprolol 25 mg QAM - IV Hydralazine PRN T2DM- hgbA1c 4.7%, peripheral neuropathy, diabetic retinopathy- follows w/ [facility]: - Continue own insulin pump - BSG ACHS and ISS LYDIA, obesity: - Continue CPAP HS - Encourage healthy diet and exercise GI prophylaxis, GERD: Nexium DVT prophylaxis: ASA 81 mg BID as per surgical team Code status: LEVEL I, FULL- no prolonged measures Dispo: As per primary team- patient hoping for rehab at discharge Supervising Note Dr. Fatima I performed a history and physical examination on the patient. I reviewed above note and agree with it. I discussed plan with APC and patient. During my face to face encounter with the patient, I answered all of the patient's questions.
[2017-11-20] MEDS: OXYCODONE HCL IR 5 MG TAB (IMMEDIATE RELEASE) PO PRN ×3 (14:55→23:44)
[2017-11-20] MEDS ORDERED: GLUCOSE 40% GEL 15 GM TUBE PO PRN (15:00)
[2017-11-20] MEDS ORDERED: GLUCAGON FOR INJ 1 MG VIAL SQ PRN (15:00)
[2017-11-20] MEDS ORDERED: GLUCOSE 10 TABS/TUBE PO PRN (15:00)
[2017-11-20] MEDS ORDERED: DEXTROSE 50% 50 ML SYR IV PRN (15:00)
[2017-11-20] MEDS ORDERED: INSULIN ASPART 100 UNITS/ML VIAL SC PRN (15:00)
[2017-11-20] MEDS: POTASSIUM CHLORIDE INJ 10 MEQ in SODIUM CHLORIDE 0.9% 1000ML 1,000 ML IV SCH ×2 (15:19→23:19)
[2017-11-20] MEDS: CEFAZOLIN IV 2,000 MG in SYRINGE 0 ML IV SCH ×2 (15:55→23:18)
[2017-11-20] MEDS ORDERED: INSULIN ASPART 100 UNITS/ML 3 ML PEN SC SCH (17:15)
[2017-11-20] MEDS: NovoLOG INSULIN PUMP SCH ×2 (18:40→21:20)
[2017-11-20] MEDS: SENNA 8.6 MG TAB PO SCH (21:00)
[2017-11-20] MEDS: DOCUSATE SODIUM 100 MG CAP PO SCH (21:00)
[2017-11-20] MEDS: OXYCODONE HCL 10 MG TABCR (OXYCONTIN) PO SCH (21:21)
[2017-11-20] MEDS: ASPIRIN 81 MG ECTAB PO SCH (21:22)
[2017-11-20] MEDS: ESCITALOPRAM OXALATE 10 MG TAB PO SCH (21:22)
[2017-11-20] MEDS: LATANOPROST 0.005% OP SOLN 2.5 ML BTL OPB SCH (21:22)
[2017-11-20] MEDS: ACETAMINOPHEN 500 MG TAB PO SCH (21:23)
[2017-11-21] VITALS (8 sets, daily range): BP systolic 89–128; BP diastolic 52–65; PULSE 70–98; TEMP 36.3–37.1; O2SAT 91–96
[2017-11-21] MEDS: OXYCODONE HCL IR 5 MG TAB (IMMEDIATE RELEASE) PO PRN ×3 (03:52→13:36)
[2017-11-21] MEDS: ACETAMINOPHEN 500 MG TAB PO SCH ×3 (05:35→21:51)
[2017-11-21 06:33] LABS: HEMATOCRIT 31.9 % (37-47); HEMOGLOBIN 10.2 g/dL (12.0-16.0); MEAN CELL VOLUME 92.7 fL (80-100); MEAN CORPUSCULAR HEMOGLOBIN 29.7 pg (25-34); MEAN PLATELET VOLUME 9.3 fL (7.4-10.4); PLATELET COUNT 100 K/uL (130-400); RED CELL DISTRIBUTION WIDTH CV 14.1 % (11.5-14.5); RED CELL DISTRIBUTION WIDTH SD 47.1 fL (36.4-46.3); WHITE BLOOD COUNT 5.77 K/uL (4.8-10.8)
[2017-11-21 07:07] LABS: CALCIUM 8.6 mg/dl (8.5-10.1); CREATININE 0.86 mg/dl (0.60-1.20); POTASSIUM 3.8 mmol/L (3.5-5.1)
--- NOTE | 2017-11-21 07:39 | Orthopedic Progress Note ---
Orthopedic Progress Note Date of Service Nov 21, 2017. Subjective Post OP Day: 1 Reports: feeling well, pain controlled w PO medications, Denies: complaints, chest pain, SOB, nausea / vomiting, light headedness, calf pain Objective calves soft nontender, N/V intact, splint C/D/I, capillary refill less than 2 sec., A&O x3, toes mobile, hemovac drainage (50 cc) Date Time Temp Pulse Resp B/P (MAP) Pulse Ox O2 Delivery O2 Flow Rate FiO2 11/21/17 03:20 36.3 80 16 105/62 (76) 96 CPAP 11/20/17 23:08 36.5 87 18 114/67 (83) 93 Room Air 11/20/17 20:04 91 Room Air 11/20/17 19:50 Room Air 11/20/17 16:23 36.6 104 18 129/75 (93) 92 Nasal Cannula 3.0 11/20/17 15:14 36.8 102 18 130/72 (91) 94 Nasal Cannula 3.0 11/20/17 14:15 36.6 103 18 125/71 (89) 97 Nasal Cannula 2.0 11/20/17 13:45 36.7 99 17 104/68 (80) 96 Nasal Cannula 2.0 11/20/17 13:15 95 Nasal Cannula 2.0 11/20/17 13:15 95 Nasal Cannula 2.0 11/20/17 12:55 105 14 130/68 94 Nasal Cannula 3 11/20/17 12:40 104 16 135/61 93 Nasal Cannula 3 11/20/17 12:30 99 16 135/72 95 Nasal Cannula 3 11/20/17 12:20 101 13 140/66 94 Nasal Cannula 3 11/20/17 12:10 37 99 17 127/63 94 Nasal Cannula 3 11/20/17 12:00 99 16 140/63 95 Oxymask 8 11/20/17 11:50 106 14 124/52 97 Oxymask 8 11/20/17 11:40 102 15 146/63 96 Oxymask 8 11/20/17 11:34 37 104 16 149/71 99 Oxymask 8 Laboratory Results 24 Hours: Test 11/21/17 05:27 Hematocrit 31.9 % Hemoglobin 10.2 g/dL Assessment & Plan Assessment: POD #1 s/p 1. Right STAR total ankle replacement using a size extra small talus , a medium sized tibia and a 7-mm polyethylene. 2. Percutaneous tendon Achilles lengthening. 3. Application of platelet rich plasma concentrate Plan: D/C hemovac today PT for gait training, NWB RLE DVT prophylaxis--ASA 81 mg BID D/C planning--plan for [place] on Saturday, 11.23.17. Inhouse Planning Pain Management: Morphine, PO Tylenol, Oxy IR DVT Prophylaxis: TEDs, SCDs, ASA Discharge Planning Discharge Planning: snf facility
--- NOTE | 2017-11-21 07:41 | Discharge Instructions ---
Discharge Instructions Date of Service Nov 21, 2017. Admission Reason for Admission: Right Ankle/Foot Osteoarthritis Discharge Discharge Diagnosis / Problem: right ankle osteoarthritis Discharge Goals Goal(s): Decrease discomfort, Improve function Activity Recommendations Activity Level: Up Ad Brianne Weightbearing Status: Right non-weightbearing . Additional Information Patient informed of condition: Yes Advance Directives: Yes DNR: No Level of Care: Acute Rehab Communicable Disease: No Prognosis: Stable Alejandro Catheter: No Instructions / Follow-Up Instructions / Follow-Up ACTIVITY RECOMMENDATIONS: Limitations: No weight bearing to affected limb at all times. SPECIAL CARE INSTRUCTIONS: * Some drainage onto the dressing is normal and is no cause for alarm. * Some swelling is natural especially after walking. * When resting, keep your foot elevated above the level of your heart. * Call [facility] if you notice: -Increased drainage -Fever over 101 degrees F -Severe constant pain BANDAGE: * Leave bandage/cast in place unless otherwise directed. * Keep bandage/cast dry at all times. FOLLOW UP VISIT WITH DR. BANSAL If appointment is not already scheduled: Please call [facility] after you get home today to schedule a follow-up appointment for [address] Bansal at . Current Hospital Diet Patient's current hospital diet: Diabetes Type 1 Diet Discharge Diet Recommended Diet: Diabetes Type 1 Diet Procedures Procedures Performed: 1. Right STAR Total Ankle Arthroplasty, 2. Application of Platelet Rich Plasma, 3. Percutaneous Tendon Achilles Lengthening Pending Studies Studies pending at discharge: no Laboratory Results Hemoglobin A1c Test 10/31/17 13:05 Range/Units Estimated Average Glucose 88 mg/dl Hemoglobin A1c 4.7 4.5-5.6 % Medical Emergencies . Who to Call and When: Medical Emergencies: If at any time you feel your situation is an emergency, please call 911 immediately. . Non-Emergent Contact Non-Emergency issues call your: Surgeon Call Non-Emergent contact if: temperature is above 101, your pain is not controlled, your pain is worsening . . "Provider Documentation" section prepared by Daniel Blair. . Core Measure Problem Core Measures: None
[2017-11-21] MEDS: CeleBREX 100 MG CAP PO SCH (09:00)
[2017-11-21] MEDS: CALCIUM 600MG + VIT D 400 IU TAB PO SCH (09:00)
[2017-11-21] MEDS: CHOLECALCIFEROL 1000 INTER.UNIT TAB PO SCH (09:00)
[2017-11-21] MEDS: PANTOprazole SOD 40 MG TAB PO SCH (09:00)
[2017-11-21] MEDS: MONTELUKAST SOD 10 MG TAB PO SCH (09:00)
[2017-11-21] MEDS: MULTIVITAMIN TAB PO SCH (09:00)
[2017-11-21] MEDS: METOPROLOL TARTRATE 25 MG TAB PO SCH (09:00)
[2017-11-21] MEDS: ASPIRIN 81 MG ECTAB PO SCH ×2 (09:00→20:39)
[2017-11-21] MEDS ORDERED: LISINOPRIL 5 MG TAB PO SCH ×2 (09:00)
[2017-11-21] MEDS: CYANOCOBALAMIN 500 MCG TAB (VIT B-12) PO SCH (09:00)
[2017-11-21] MEDS: OXYCODONE HCL 10 MG TABCR (OXYCONTIN) PO SCH ×2 (09:35→20:37)
--- NOTE | 2017-11-21 10:46 | Anesthesiology Progress Note ---
Anesthesia Post Op Note Date & Time Nov 21, 2017 at 10:46 Vital Signs Vital Signs Past 12 Hours Date Time Temp Pulse Resp B/P (MAP) Pulse Ox O2 Delivery O2 Flow Rate FiO2 11/21/17 03:20 36.3 80 16 105/62 (76) 96 CPAP 11/20/17 23:08 36.5 87 18 114/67 (83) 93 Room Air Notes Mental Status: alert / awake / arousable, participated in evaluation Pt Amnestic to Procedure: Yes Nausea / Vomiting: adequately controlled Pain: adequately controlled Airway Patency, RR, SpO2: stable & adequate BP & HR: stable & adequate Hydration State: stable & adequate Anesthetic Complications: no major complications apparent
--- NOTE | 2017-11-21 11:03 | Hospitalist Progress Note ---
Hospitalist Progress Note Date of Service Nov 21, 2017. (Gabby Nunn ., PA-C) Subjective Pt evaluation today including: conversation w/ patient, physical exam, lab review, review of inpatient medication list Voiding: no voiding problems Patient sitting in bedside chair. Pain is well controlled. Eating and drinking OK- will d/c IVF today. +ileostomy output. Patient denies any fever, chills, sweats, lightheadedness, dizziness, vision changes, CP, palpitations, edema, SOB, wheezing, cough, abdominal pain, nausea, vomiting, diarrhea, urinary symptoms, melena, numbness/tingling, weakness, anxiety/depression, active bleeding, or new skin discoloration/changes. Paged by RN in afternoon due to episode of chest pressure, nausea/vomiting. Patient states she was eating soup for lunch, took her first bite, started to experience centralized chest pressure. She vomited x1 which relieved some of pain. Vomited again, which relieved more pain. Currently pain 11/13. Did not radiate. Denies any similar episodes in past. Denies any other s/s. (Gabby Nunn ., PA-C) Medications Current Inpatient Medications Medications (Trade) Dose Ordered Sig/Rohan Route Start Time Stop Time Status Last Admin Dose Admin Celecoxib (CeleBREX CAP) 200 mg QAM PO 11/21/17 09:00 12/21/17 08:59 Cyanocobalamin (Vitamin B-12 Tab) 500 mcg QAM PO 11/21/17 09:00 12/21/17 08:59 Cholecalciferol (Vitamin D Tab) 1,000 inter.unit DAILY PO 11/21/17 09:00 12/21/17 08:59 Escitalopram Oxalate (Lexapro Tab) 10 mg HS PO 11/20/17 21:00 12/20/17 20:59 11/20/17 21:22 10 MG Latanoprost (Xalatan Oph Soln) 1 drops HS OPB 11/20/17 21:00 12/20/17 20:59 11/20/17 21:22 1 DROPS Metoprolol Tartrate (Lopressor Tab) 25 mg QAM PO 11/21/17 09:00 12/21/17 08:59 Montelukast Sodium (Singulair Tab) 10 mg QAM PO 11/21/17 09:00 12/21/17 08:59 Multivitamins (Multivitamin Tab) 1 tab QAM PO 11/21/17 09:00 12/21/17 08:59 Miscellaneous Information (Order Awaiting Action) 1 ea QS N/A 11/20/17 16:00 12/20/17 15:59 Pantoprazole Sodium (Protonix Tab) 40 mg QAM PO 11/21/17 09:00 12/21/17 08:59 Miscellaneous Information (Order Awaiting Action) 1 ea QS N/A 11/20/17 16:00 12/20/17 15:59 Calcium/Vitamin D (Caltrate Plus Tab) 1 tab QAM PO 11/21/17 09:00 12/21/17 08:59 Potassium Chloride 10 meq/ Sodium Chloride 1,005 ml @ 100 mls/hr Q10H3M IV 11/20/17 15:00 12/20/17 14:59 11/20/17 23:19 100 MLS/HR Oxycodone HCl (Roxicodone Immediate Rel Tab) 1-2 TABS FOR PAIN 1 TABLET ... Q4H PRN PO 11/20/17 12:00 12/04/17 11:59 11/21/17 03:52 10 MG Oxycodone HCl (Oxycontin Tab) 10 mg Q12 PO 11/20/17 21:00 11/22/17 20:59 11/20/17 21:21 10 MG Acetaminophen (Tylenol Tab) 1,000 mg Q8 PO 11/20/17 22:00 12/20/17 21:59 11/21/17 05:35 1,000 MG Magnesium Hydroxide (Milk Of Magnesia Susp) 30 ml Q6H PRN PO 11/20/17 12:00 12/20/17 11:59 Bisacodyl (Dulcolax Supp) 10 mg DAILY PRN DC 11/20/17 12:00 12/20/17 11:59 Sodium Biphosphate/ Sodium Phosphate (Fleet Enema) 132 ml DAILY PRN DC 11/20/17 12:00 12/20/17 11:59 Senna (Senokot Tab) 17.2 mg HS PO 11/20/17 21:00 12/20/17 20:59 Docusate Sodium (coLACE CAP) 100 mg BID PO 11/20/17 21:00 12/20/17 20:59 Diphenhydramine HCl (Benadryl Cap) 25 mg Q8H PRN PO 11/20/17 12:00 12/20/17 11:59 Al Hydrox/Mg Hydrox/Simethicone (Maalox Max Susp) 15 ml Q4H PRN PO 11/20/17 12:00 12/20/17 11:59 Zolpidem Tartrate (Ambien Tab) 5 mg HSZ PRN PO 11/20/17 12:00 12/20/17 11:59 Ondansetron HCl (Zofran Inj) 4 mg Q6H PRN IV 11/20/17 12:00 12/20/17 11:59 Aspirin (Ecotrin Tab) 81 mg Q12 PO 11/20/17 21:00 12/20/17 20:59 11/20/17 21:22 81 MG Hydralazine HCl (HydrALAZINE INJ) 10 mg Q6H PRN IV. 11/20/17 14:30 12/20/17 14:29 Insulin Aspart (novoLOG INSULIN PUMP) 1 ea ACHS N/A 11/20/17 17:15 12/20/17 17:14 11/20/17 21:20 1 EA Insulin Aspart (novoLOG ASPART) SLIDING SCALE PRN PRN SC 11/20/17 15:00 12/20/17 14:59 Glucose (Glucose 40% Gel) 15-30 GRAMS 15 GRAMS... UD PRN PO 11/20/17 15:00 12/20/17 14:59 Glucose (Glucose Chew Tab) 4-8 Tablets 4 Tabl... UD PRN PO 11/20/17 15:00 12/20/17 14:59 Glucagon (Glucagon Inj) 1 mg UD PRN SQ 11/20/17 15:00 12/20/17 14:59 Dextrose (Dextrose 50% 50ML Syringe) 25-50ML OF 50% DW IV FOR... UD PRN IV 11/20/17 15:00 12/20/17 14:59 Lisinopril (Zestril Tab) 5 mg QAM PO 11/22/17 09:00 12/21/17 08:59 (Gabby Nunn, ROBERT) Objective Vital Signs Date Time Temp Pulse Resp B/P (MAP) Pulse Ox O2 Delivery O2 Flow Rate FiO2 11/21/17 03:20 36.3 80 16 105/62 (76) 96 CPAP 11/20/17 23:08 36.5 87 18 114/67 (83) 93 Room Air 11/20/17 20:04 91 Room Air 11/20/17 19:50 Room Air 11/20/17 16:23 36.6 104 18 129/75 (93) 92 Nasal Cannula 3.0 11/20/17 15:14 36.8 102 18 130/72 (91) 94 Nasal Cannula 3.0 11/20/17 14:15 36.6 103 18 125/71 (89) 97 Nasal Cannula 2.0 11/20/17 13:45 36.7 99 17 104/68 (80) 96 Nasal Cannula 2.0 11/20/17 13:15 95 Nasal Cannula 2.0 11/20/17 13:15 95 Nasal Cannula 2.0 11/20/17 12:55 105 14 130/68 94 Nasal Cannula 3 11/20/17 12:40 104 16 135/61 93 Nasal Cannula 3 11/20/17 12:30 99 16 135/72 95 Nasal Cannula 3 11/20/17 12:20 101 13 140/66 94 Nasal Cannula 3 11/20/17 12:10 37 99 17 127/63 94 Nasal Cannula 3 11/20/17 12:00 99 16 140/63 95 Oxymask 8 11/20/17 11:50 106 14 124/52 97 Oxymask 8 11/20/17 11:40 102 15 146/63 96 Oxymask 8 11/20/17 11:34 37 104 16 149/71 99 Oxymask 8 (Gabby Nunn, PA-C) Physical Exam General Appearance: no apparent distress Eyes: normal inspection, PERRL ENT: hearing grossly normal Neck: supple Respiratory/Chest: lungs clear, no respiratory distress, no accessory muscle use Cardiovascular: regular rate, rhythm Abdomen: normal bowel sounds, non tender, soft, + pertinent finding (+ostomy ) Extremities: no pedal edema, no calf tenderness, + pertinent finding (RLE in YOLANDE wrap ) Neurologic/Psychiatric: alert, normal mood/affect, oriented x 3 Skin: normal color, warm/dry, no rash (Gabby Nunn, PA-C) Laboratory Results Last 24 Hours Test 11/20/17 10:29 11/20/17 11:40 11/20/17 13:47 11/20/17 17:04 Bedside Glucose 190 mg/dl 207 mg/dl 191 mg/dl 182 mg/dl Test 11/20/17 21:04 11/21/17 02:02 11/21/17 05:27 11/21/17 08:04 Bedside Glucose 199 mg/dl 133 mg/dl 110 mg/dl White Blood Count 5.77 K/uL Red Blood Count 3.44 M/uL Hemoglobin 10.2 g/dL Hematocrit 31.9 % Mean Corpuscular Volume 92.7 fL Mean Corpuscular Hemoglobin 29.7 pg Mean Corpuscular Hemoglobin Concent 32.0 g/dl RDW Standard Deviation 47.1 fL RDW Coefficient of Variation 14.1 % Platelet Count 100 K/uL Mean Platelet Volume 9.3 fL Sodium Level 137 mmol/L Potassium Level 3.8 mmol/L Chloride Level 102 mmol/L Carbon Dioxide Level 30 mmol/L Anion Gap 5.0 mmol/L Blood Urea Nitrogen 16 mg/dl Creatinine 0.86 mg/dl Est Creatinine Clear Calc Drug Dose 64.0 ml/min Estimated GFR () 76.6 Estimated GFR (Non- 66.1 BUN/Creatinine Ratio 18.6 Random Glucose 125 mg/dl Calcium Level 8.6 mg/dl (Gabby Nunn, ROBERT) Assessment and Plan This is a 77 y/o F with PMHx of HTN, irregular heartbeat, DM II on insulin pump , peripheral neuropathy, diabetic retinopathy, HLD, depression, obesity, LYDIA on CPAP, cirrhosis, GERD, mild splenomegaly who underwent elective R total ankle replacement and percutaneous tendon Achilles lengthening by Dr. Bobby on . s/p R total ankle replacement and percutaneous tendon Achilles lengthening by Dr. Bobby on 11/20/17: - Surgical management, pain management, PT/OT, and DVT prophylaxis as per primary team - Bowel regimen ordered - Encourage incentive spirometer - Follow postop CBC and PRP- STABLE Chest pressure, N/V: - Obtain EKG and troponin HTN, irregular heartbeat, h/o v-tach- follows w/ [place] [facility]: - Hold Lisinopril 5 mg daily pending postop PRP- resume tomorrow AM - Continue Metoprolol 25 mg QAM - IV Hydralazine PRN T2DM- hgbA1c 4.7%, peripheral neuropathy, diabetic retinopathy- follows w/ [facility]: - Continue own insulin pump - BSG ACHS and ISS LYDIA, obesity: - Continue CPAP HS - Encourage healthy diet and exercise Depression: Continue Lexapro GI prophylaxis, GERD: Nexium DVT prophylaxis: ASA 81 mg BID as per surgical team Code status: LEVEL I, FULL- no prolonged measures Dispo: As per primary team- patient hoping for rehab at discharge (Gabby Nunn, PA-C) Supervising Note Dr. Fatima I performed a history and physical examination on the patient. I reviewed above note and agree with it. I discussed plan with APC and patient. During my face to face encounter with the patient, I answered all of the patient's questions. will obtain trop x3 and will repeat EKG. Patient will also obtain a bolus of 1 liter over 5 hours (Faustino Fatima M.D.)
[2017-11-21] MEDS: NovoLOG INSULIN PUMP SCH ×4 (12:51→21:55)
[2017-11-21] MEDS: DOCUSATE SODIUM 100 MG CAP PO SCH ×2 (12:51→20:38)
[2017-11-21] MEDS ORDERED: LACTATED RINGER'S 1000ML 1,000 ML IV STA (19:14)
[2017-11-21] MEDS: SENNA 8.6 MG TAB PO SCH (20:38)
[2017-11-21] MEDS: ESCITALOPRAM OXALATE 10 MG TAB PO SCH (20:39)
[2017-11-21] MEDS: LATANOPROST 0.005% OP SOLN 2.5 ML BTL OPB SCH (20:40)
[2017-11-22] MEDS: OXYCODONE HCL IR 5 MG TAB (IMMEDIATE RELEASE) PO PRN ×3 (04:53→23:36)
[2017-11-22] MEDS: ACETAMINOPHEN 500 MG TAB PO SCH ×3 (04:54→22:18)
[2017-11-22 05:18] LABS: HEMATOCRIT 32.9 % (37-47); HEMOGLOBIN 10.3 g/dL (12.0-16.0); MEAN CELL VOLUME 93.7 fL (80-100); MEAN CORPUSCULAR HEMOGLOBIN 29.3 pg (25-34); MEAN CORPUSCULAR HGB CONC 31.3 g/dl (32-36); MEAN PLATELET VOLUME 9.4 fL (7.4-10.4); PLATELET COUNT 109 K/uL (130-400); RED CELL DISTRIBUTION WIDTH CV 14.2 % (11.5-14.5); RED CELL DISTRIBUTION WIDTH SD 47.8 fL (36.4-46.3); WHITE BLOOD COUNT 5.74 K/uL (4.8-10.8)
[2017-11-22 05:56] LABS: BLOOD UREA NITROGEN 13 mg/dl (7-18); CALCIUM 8.8 mg/dl (8.5-10.1); CARBON DIOXIDE 34 mmol/L (21-32); GLUCOSE 105 mg/dl (70-99); POTASSIUM 3.7 mmol/L (3.5-5.1); SODIUM 138 mmol/L (136-145)
[2017-11-22 07:50] VITALS: BP 105/63; PULSE 80; TEMP 36.9; O2SAT 92
[2017-11-22] MEDS: NovoLOG INSULIN PUMP SCH ×4 (08:00→22:19)
[2017-11-22] MEDS: DOCUSATE SODIUM 100 MG CAP PO SCH ×2 (09:00→22:15)
[2017-11-22] MEDS: CALCIUM 600MG + VIT D 400 IU TAB PO SCH (09:05)
[2017-11-22] MEDS: CeleBREX 100 MG CAP PO SCH (09:05)
[2017-11-22] MEDS: ASPIRIN 81 MG ECTAB PO SCH ×2 (09:06→22:17)
[2017-11-22] MEDS: MULTIVITAMIN TAB PO SCH (09:06)
[2017-11-22] MEDS: METOPROLOL TARTRATE 25 MG TAB PO SCH (09:06)
[2017-11-22] MEDS: MONTELUKAST SOD 10 MG TAB PO SCH (09:07)
[2017-11-22] MEDS: PANTOprazole SOD 40 MG TAB PO SCH (09:07)
[2017-11-22] MEDS: CYANOCOBALAMIN 500 MCG TAB (VIT B-12) PO SCH (09:07)
[2017-11-22] MEDS: CHOLECALCIFEROL 1000 INTER.UNIT TAB PO SCH (09:08)
[2017-11-22] MEDS: LISINOPRIL 5 MG TAB PO SCH (09:14)
[2017-11-22] MEDS: OXYCODONE HCL 10 MG TABCR (OXYCONTIN) PO SCH (09:14)
--- NOTE | 2017-11-22 11:52 | Hospitalist Progress Note ---
Hospitalist Progress Note Date of Service Nov 22, 2017. (Gabby Nunn ., PETERSONC) Subjective Pt evaluation today including: conversation w/ patient, physical exam, lab review, review of inpatient medication list Voiding: no voiding problems Patient feeling well. No more episodes of chest pressure, N/V. Eating and drinking OK. +BM. Pain is well controlled. Hoping for discharge tomorrow. Patient denies any fever, chills, sweats, lightheadedness, dizziness, vision changes, CP, palpitations, edema, SOB, wheezing, cough, abdominal pain, nausea, vomiting, diarrhea, urinary symptoms, melena, numbness/tingling, weakness, anxiety/depression, active bleeding, or new skin discoloration/changes. (Gabby Nunn ., PETERSONC) Medications Current Inpatient Medications Medications (Trade) Dose Ordered Sig/Rohan Route Start Time Stop Time Status Last Admin Dose Admin Celecoxib (CeleBREX CAP) 200 mg QAM PO 11/21/17 09:00 12/21/17 08:59 11/22/17 09:05 200 MG Cyanocobalamin (Vitamin B-12 Tab) 500 mcg QAM PO 11/21/17 09:00 12/21/17 08:59 11/22/17 09:07 500 MCG Cholecalciferol (Vitamin D Tab) 1,000 inter.unit DAILY PO 11/21/17 09:00 12/21/17 08:59 11/22/17 09:08 1,000 INTER.UNIT Escitalopram Oxalate (Lexapro Tab) 10 mg HS PO 11/20/17 21:00 12/20/17 20:59 11/21/17 20:39 10 MG Latanoprost (Xalatan Oph Soln) 1 drops HS OPB 11/20/17 21:00 12/20/17 20:59 11/21/17 20:40 1 DROPS Metoprolol Tartrate (Lopressor Tab) 25 mg QAM PO 11/21/17 09:00 12/21/17 08:59 11/22/17 09:06 25 MG Montelukast Sodium (Singulair Tab) 10 mg QAM PO 11/21/17 09:00 12/21/17 08:59 11/22/17 09:07 10 MG Multivitamins (Multivitamin Tab) 1 tab QAM PO 11/21/17 09:00 12/21/17 08:59 11/22/17 09:06 1 TAB Miscellaneous Information (Order Awaiting Action) 1 ea QS N/A 11/20/17 16:00 12/20/17 15:59 Pantoprazole Sodium (Protonix Tab) 40 mg QAM PO 11/21/17 09:00 12/21/17 08:59 11/22/17 09:07 40 MG Miscellaneous Information (Order Awaiting Action) 1 ea QS N/A 11/20/17 16:00 12/20/17 15:59 Calcium/Vitamin D (Caltrate Plus Tab) 1 tab QAM PO 11/21/17 09:00 12/21/17 08:59 11/22/17 09:05 1 TAB Oxycodone HCl (Roxicodone Immediate Rel Tab) 1-2 TABS FOR PAIN 1 TABLET ... Q4H PRN PO 11/20/17 12:00 12/04/17 11:59 11/22/17 04:53 10 MG Oxycodone HCl (Oxycontin Tab) 10 mg Q12 PO 11/20/17 21:00 11/22/17 20:59 11/22/17 09:14 10 MG Acetaminophen (Tylenol Tab) 1,000 mg Q8 PO 11/20/17 22:00 12/20/17 21:59 11/22/17 04:54 1,000 MG Magnesium Hydroxide (Milk Of Magnesia Susp) 30 ml Q6H PRN PO 11/20/17 12:00 12/20/17 11:59 Bisacodyl (Dulcolax Supp) 10 mg DAILY PRN CO 11/20/17 12:00 12/20/17 11:59 Sodium Biphosphate/ Sodium Phosphate (Fleet Enema) 132 ml DAILY PRN CO 11/20/17 12:00 12/20/17 11:59 Senna (Senokot Tab) 17.2 mg HS PO 11/20/17 21:00 12/20/17 20:59 Docusate Sodium (coLACE CAP) 100 mg BID PO 11/20/17 21:00 12/20/17 20:59 Diphenhydramine HCl (Benadryl Cap) 25 mg Q8H PRN PO 11/20/17 12:00 12/20/17 11:59 Al Hydrox/Mg Hydrox/Simethicone (Maalox Max Susp) 15 ml Q4H PRN PO 11/20/17 12:00 12/20/17 11:59 Zolpidem Tartrate (Ambien Tab) 5 mg HSZ PRN PO 11/20/17 12:00 12/20/17 11:59 Ondansetron HCl (Zofran Inj) 4 mg Q6H PRN IV 11/20/17 12:00 12/20/17 11:59 11/21/17 12:49 4 MG Aspirin (Ecotrin Tab) 81 mg Q12 PO 11/20/17 21:00 12/20/17 20:59 11/22/17 09:06 81 MG Hydralazine HCl (HydrALAZINE INJ) 10 mg Q6H PRN IV. 11/20/17 14:30 12/20/17 14:29 Insulin Aspart (novoLOG INSULIN PUMP) 1 ea ACHS N/A 11/20/17 17:15 12/20/17 17:14 11/22/17 08:00 1 EA Insulin Aspart (novoLOG ASPART) SLIDING SCALE PRN PRN SC 11/20/17 15:00 12/20/17 14:59 Glucose (Glucose 40% Gel) 15-30 GRAMS 15 GRAMS... UD PRN PO 11/20/17 15:00 12/20/17 14:59 Glucose (Glucose Chew Tab) 4-8 Tablets 4 Tabl... UD PRN PO 11/20/17 15:00 12/20/17 14:59 Glucagon (Glucagon Inj) 1 mg UD PRN SQ 11/20/17 15:00 12/20/17 14:59 Dextrose (Dextrose 50% 50ML Syringe) 25-50ML OF 50% DW IV FOR... UD PRN IV 11/20/17 15:00 12/20/17 14:59 Lisinopril (Zestril Tab) 5 mg QAM PO 11/22/17 09:00 12/21/17 08:59 11/22/17 09:14 5 MG (Gbaby Nunn, ROBERT) Objective Vital Signs Date Time Temp Pulse Resp B/P (MAP) Pulse Ox O2 Delivery O2 Flow Rate FiO2 11/22/17 09:52 Room Air 11/22/17 07:50 36.9 80 16 105/63 (77) 92 Room Air 11/21/17 23:25 Room Air CPAP 11/21/17 23:10 37.1 98 18 123/65 (84) 95 Room Air 11/21/17 21:48 128/58 (81) 11/21/17 16:29 89/55 (66) 11/21/17 16:16 Room Air 11/21/17 14:52 36.6 74 18 93/54 (67) 94 Room Air 11/21/17 13:08 70 112/65 (81) (Gabby Nunn, PA-C) Physical Exam General Appearance: no apparent distress, + obese Eyes: normal inspection, PERRL ENT: hearing grossly normal Neck: supple Respiratory/Chest: lungs clear, no respiratory distress, no accessory muscle use Cardiovascular: regular rate, rhythm Abdomen: normal bowel sounds, non tender, soft, + pertinent finding (+ostomy site ) Extremities: no pedal edema (LLE), no calf tenderness (LLE), + pertinent finding (RLE in YOLANDE wrap ) Neurologic/Psychiatric: alert, normal mood/affect, oriented x 3 Skin: normal color, warm/dry, no rash (Gabby Nunn ., PA-C) Laboratory Results Last 24 Hours Test 11/21/17 11:51 11/21/17 14:06 11/21/17 17:14 11/21/17 20:44 Bedside Glucose 124 mg/dl 109 mg/dl 76 mg/dl Troponin I < 0.015 ng/ml Test 11/21/17 22:15 11/22/17 04:57 11/22/17 08:09 Troponin I < 0.015 ng/ml < 0.015 ng/ml White Blood Count 5.74 K/uL Red Blood Count 3.51 M/uL Hemoglobin 10.3 g/dL Hematocrit 32.9 % Mean Corpuscular Volume 93.7 fL Mean Corpuscular Hemoglobin 29.3 pg Mean Corpuscular Hemoglobin Concent 31.3 g/dl RDW Standard Deviation 47.8 fL RDW Coefficient of Variation 14.2 % Platelet Count 109 K/uL Mean Platelet Volume 9.4 fL Sodium Level 138 mmol/L Potassium Level 3.7 mmol/L Chloride Level 102 mmol/L Carbon Dioxide Level 34 mmol/L Anion Gap 2.0 mmol/L Blood Urea Nitrogen 13 mg/dl Creatinine 0.90 mg/dl Est Creatinine Clear Calc Drug Dose 61.1 ml/min Estimated GFR () 72.5 Estimated GFR (Non- 62.5 BUN/Creatinine Ratio 14.6 Random Glucose 105 mg/dl Calcium Level 8.8 mg/dl Bedside Glucose 100 mg/dl (Gabby Nunn, PA-C) Assessment and Plan This is a 77 y/o F with PMHx of HTN, irregular heartbeat, DM II on insulin pump , peripheral neuropathy, diabetic retinopathy, HLD, depression, obesity, LYDIA on CPAP, cirrhosis, GERD, mild splenomegaly who underwent elective R total ankle replacement and percutaneous tendon Achilles lengthening by Dr. Bobby on . s/p R total ankle replacement and percutaneous tendon Achilles lengthening by Dr. Bobby on 11/20/17: - Surgical management, pain management, PT/OT, and DVT prophylaxis as per primary team - Bowel regimen ordered - Encourage incentive spirometer - Follow postop CBC and PRP- STABLE Chest pressure, N/V- RESOLVED: Obtained EKG and troponin x3- unremarkable HTN, irregular heartbeat, h/o v-tach- follows w/ [place] [facility]ology: - Lisinopril 5 mg daily, Metoprolol 25 mg QAM - IV Hydralazine PRN T2DM- hgbA1c 4.7%, peripheral neuropathy, diabetic retinopathy- follows w/ [facility] R[facility]: - Continue own insulin pump - BSG ACHS and ISS LYDIA, obesity: - Continue CPAP HS - Encourage healthy diet and exercise Depression: Continue Lexapro GI prophylaxis, GERD: Nexium DVT prophylaxis: ASA 81 mg BID as per surgical team Code status: LEVEL I, FULL- no prolonged measures Dispo: As per primary team- patient hoping for rehab at discharge - Patient is medically stable for discharge from medical standpoint- will sign off. Feel free to contact w/ any new questions/concerns. (Gabby Nunn, PACorbyC) Supervising Note Dr. Fatima I performed a history and physical examination on the patient. I reviewed above note and agree with it. I discussed plan with APC and patient. During my face to face encounter with the patient, I answered all of the patient's questions. (Faustino Fatima M.D.)
--- NOTE | 2017-11-22 12:18 | Orthopedic Progress Note ---
Orthopedic Progress Note Date of Service Nov 22, 2017. Subjective Post OP Day: 2 Reports: feeling well, pain controlled w PO medications, Denies: complaints, chest pain, SOB, nausea / vomiting, light headedness, calf pain Objective calves soft nontender, N/V intact, splint C/D/I, capillary refill less than 2 sec., A&O x3, toes mobile Date Time Temp Pulse Resp B/P (MAP) Pulse Ox O2 Delivery O2 Flow Rate FiO2 11/22/17 09:52 Room Air 11/22/17 07:50 36.9 80 16 105/63 (77) 92 Room Air 11/21/17 23:25 Room Air CPAP 11/21/17 23:10 37.1 98 18 123/65 (84) 95 Room Air 11/21/17 21:48 128/58 (81) 11/21/17 16:29 89/55 (66) 11/21/17 16:16 Room Air 11/21/17 14:52 36.6 74 18 93/54 (67) 94 Room Air 11/21/17 13:08 70 112/65 (81) Laboratory Results 24 Hours: Test 11/22/17 04:57 Hematocrit 32.9 % Hemoglobin 10.3 g/dL Assessment & Plan Assessment: POD #2 s/p 1. Right STAR total ankle replacement using a size extra small talus , a medium sized tibia and a 7-mm polyethylene. 2. Percutaneous tendon Achilles lengthening. 3. Application of platelet rich plasma concentrate Plan: PT for gait training, NWB RLE DVT prophylaxis--ASA 81 mg BID D/C planning--plan for [place] on Saturday, 11.23.17. Inhouse Planning Pain Management: Morphine, PO Tylenol, Oxy IR DVT Prophylaxis: TEDs, SCDs, ASA Discharge Planning Discharge Planning: alf facility Pain Management: Percocet DVT Prophylaxis: ASA
[2017-11-22 15:06] VITALS: BP 111/62; PULSE 88; TEMP 37.1; O2SAT 92
[2017-11-22] MEDS: SENNA 8.6 MG TAB PO SCH (22:15)
[2017-11-22] MEDS: LATANOPROST 0.005% OP SOLN 2.5 ML BTL OPB SCH (22:16)
[2017-11-22] MEDS: ESCITALOPRAM OXALATE 10 MG TAB PO SCH (22:18)
[2017-11-22 23:45] VITALS: BP 130/62; PULSE 105; TEMP 37.2; O2SAT 92
[2017-11-23] MEDS: ACETAMINOPHEN 500 MG TAB PO SCH (06:09)
[2017-11-23 06:10] LABS: HEMATOCRIT 30.4 % (37-47); HEMOGLOBIN 9.8 g/dL (12.0-16.0); MEAN CELL VOLUME 92.4 fL (80-100); MEAN CORPUSCULAR HEMOGLOBIN 29.8 pg (25-34); MEAN CORPUSCULAR HGB CONC 32.2 g/dl (32-36); MEAN PLATELET VOLUME 9.7 fL (7.4-10.4); PLATELET COUNT 102 K/uL (130-400); RED CELL DISTRIBUTION WIDTH CV 14.2 % (11.5-14.5); RED CELL DISTRIBUTION WIDTH SD 47.4 fL (36.4-46.3); WHITE BLOOD COUNT 5.13 K/uL (4.8-10.8)
--- NOTE | 2017-11-23 07:45 | Orthopedic Progress Note ---
Orthopedic Progress Note Date of Service Nov 23, 2017. Subjective Post OP Day: 3 Reports: feeling well Objective splint C/D/I, toes mobile Date Time Temp Pulse Resp B/P (MAP) Pulse Ox O2 Delivery O2 Flow Rate FiO2 11/22/17 23:45 37.2 105 16 130/62 (84) 92 Room Air 11/22/17 23:35 Room Air CPAP 11/22/17 15:06 37.1 88 16 111/62 (78) 92 11/22/17 15:05 Room Air 11/22/17 09:52 Room Air 11/22/17 07:50 36.9 80 16 105/63 (77) 92 Room Air Laboratory Results 24 Hours: Test 11/23/17 05:22 Hematocrit 30.4 % Hemoglobin 9.8 g/dL Assessment & Plan Assessment: POD #3 s/p 1. Right STAR total ankle replacement using a size extra small talus , a medium sized tibia and a 7-mm polyethylene. 2. Percutaneous tendon Achilles lengthening. 3. Application of platelet rich plasma concentrate Plan: PT for gait training, NWB RLE DVT prophylaxis--ASA 81 mg BID D/C planning--plan for [place] on Saturday, 11.23.17. Attending Addendum I have seen and examined the patient, and agree with BRADLEY Beltrán's assessment and plan. Gilbert Harris MD Orthopedic Surgery Inhouse Planning Pain Management: Morphine, PO Tylenol, Oxy IR DVT Prophylaxis: TEDs, SCDs, ASA Discharge Planning Discharge Planning: [facility] facility Pain Management: Percocet DVT Prophylaxis: ASA
[2017-11-23] MEDS ORDERED: RXC5 PO (07:48)
[2017-11-23] MEDS ORDERED: ACET-24 PO (07:48)
[2017-11-23] MEDS ORDERED: ASPEC81 PO (07:48)
[2017-11-23] MEDS: NovoLOG INSULIN PUMP SCH (08:00)
[2017-11-23 08:13] VITALS: BP 119/50; PULSE 88; TEMP 36.7; O2SAT 92
[2017-11-23] MEDS: DOCUSATE SODIUM 100 MG CAP PO SCH (09:00)
[2017-11-23] MEDS: OXYCODONE HCL IR 5 MG TAB (IMMEDIATE RELEASE) PO PRN ×2 (09:13→11:55)
[2017-11-23] MEDS: MULTIVITAMIN TAB PO SCH (09:14)
[2017-11-23] MEDS: MONTELUKAST SOD 10 MG TAB PO SCH (09:15)
[2017-11-23] MEDS: CALCIUM 600MG + VIT D 400 IU TAB PO SCH (09:16)
[2017-11-23] MEDS: CHOLECALCIFEROL 1000 INTER.UNIT TAB PO SCH (09:16)
[2017-11-23] MEDS: PANTOprazole SOD 40 MG TAB PO SCH (09:16)
[2017-11-23] MEDS: CYANOCOBALAMIN 500 MCG TAB (VIT B-12) PO SCH (09:16)
[2017-11-23] MEDS: CeleBREX 100 MG CAP PO SCH (09:17)
[2017-11-23] MEDS: ASPIRIN 81 MG ECTAB PO SCH (09:17)
[2017-11-23] MEDS: LISINOPRIL 5 MG TAB PO SCH (09:18)
[2017-11-23] MEDS: METOPROLOL TARTRATE 25 MG TAB PO SCH (09:19)
[2017-11-23 09:51] VITALS: BP 160/64; PULSE 105; O2SAT 97
[2017-11-23 10:36] VITALS: BP 119/50; PULSE 88; TEMP 36.7; O2SAT 92
== END 2017-11-23 12:48 | DRG 469 ==
LOC: C.ACU 05:33 → C.3E 07:34 → ENRESERV 12:39
PROVIDERS: ADMIT Orthopaedic Surgery Sports Medicine; ATTEND Orthopaedic Surgery Sports Medicine
PROC: 0SRF0JA Replacement of Right Ankle Joint with Synthetic Substitute, Uncemented, Open Approach (ICD-10-PCS; principal; 2017-11-20 07:30)
PROC: 0L8S0ZZ Division of Right Ankle Tendon, Open Approach (ICD-10-PCS; principal; 2017-11-20 07:30)
DX: M19.071 Primary osteoarthritis, right ankle and foot (principal); M67.01 Short Achilles tendon (acquired), right ankle; R07.89 Other chest pain; I10 Essential (primary) hypertension; E11.40 Type 2 diabetes mellitus with diabetic neuropathy, unspecified; E11.319 Type 2 diabetes mellitus with unspecified diabetic retinopathy without macular edema; E78.5 Hyperlipidemia, unspecified; E66.9 Obesity, unspecified; G47.33 Obstructive sleep apnea (adult) (pediatric); K21.9 Gastro-esophageal reflux disease without esophagitis; Z68.34 Body mass index [BMI] 34.0-34.9, adult; Z79.4 Long term (current) use of insulin; Z79.82 Long term (current) use of aspirin; Z79.899 Other long term (current) drug therapy; Z91.040 Latex allergy status; Z96.41 Presence of insulin pump (external) (internal); Z88.5 Allergy status to narcotic agent; Z88.1 Allergy status to other antibiotic agents

== ENCOUNTER → 2018-05-29 | Outpatient (CLI) | payer OTHER ==
[~2018-05-29] MED LIST changes: +ACET-24 PO; -ASPCH81X PO; +ASPI-320 PO; -IBUP-1277 PO; -NAPR1TAB9 PO; +RXC5 PO
[2018-05-29 12:33] LABS: ALBUMIN 3.8 gm/dl (3.4-5.0); CALCIUM 8.7 mg/dl (8.5-10.1); CREATININE 0.91 mg/dl (0.60-1.20)
== END | disposition home or self-care (01) ==
LOC: C.LAB1850 10:42
PROVIDERS: ATTEND Internal Medicine Endocrinology, Diabetes & Metabolism
DX: M85.80 Other specified disorders of bone density and structure, unspecified site (principal)

== ENCOUNTER → 2018-06-02 | Day surgery (SDC) | payer OTHER ==
[~2018-06-02] VITALS: Ht 165.1 cm; Wt 91.0 kg
[~2018-06-02] MED LIST changes: +ACETAMINOPHEN 500 MG TAB PO SCH; +ZOLEDRONIC ACID INJ 5 MG in EMPTY BAG 0 ML IV SCH
[2018-06-02 14:17] VITALS: BP 126/70; PULSE 107; TEMP 36.8; O2SAT 93; Ht 165.1 cm; Wt 91.0 kg
--- NOTE | 2018-06-03 12:56 | CODING QUERY NO DIAGNOSIS ---
TREATMENT RENDERED WITHOUT A DIAGNOSIS To promote full compliance with coding requirements relating to patient care, physician participation is requested in all cases of certified coder uncertainty. Please assist us with the question(s) below: Coding Question: The patient received Reclast on 06/02/18 as noted in the record. Please document the diagnosis that is being addressed by the medication/treatment. Provider Response: DIAGNOSIS: Thank you for your assistance, Loretta Alcantar - Gear Straightener
== END | disposition home or self-care (01) ==
LOC: C.MTU 14:10
PROVIDERS: ATTEND Internal Medicine Endocrinology, Diabetes & Metabolism
DX: M85.80 Other specified disorders of bone density and structure, unspecified site (principal)

== ENCOUNTER 2019-08-15 14:49 | Inpatient (IN) ==
[2019-08-15] MEDS ORDERED: ONDANSETRON INJ 2 MG/ML 2 ML VIAL IV STA (14:55)
[2019-08-15] MEDS ORDERED: SODIUM CHLORIDE 0.9% 1000ML 500 ML IV ONE (14:55)
[2019-08-15] MEDS: fentaNYL citrate 100 MCG/2 ML VIAL IV PRN ×7 (15:25→23:07)
--- NOTE | 2019-08-15 15:31 | XRay Report ---
XR knee LT 2V routine HISTORY: 79 years-old Female fall, pain acute left knee pain status post fall COMPARISON: None available TECHNIQUE: 3 views of the left knee FINDINGS: Demineralized appearance of the bones. There is an acute comminuted fracture about the distal metaphy seal femur which demonstrates approximately 33 degrees apex volar angulation with 2.5 cm cortical imp action and 2.3 cm medial displacement. Fracture lines involve the medial and lateral, volar and dorsa l cortices with probable intra-articular extension into the intercondylar distribution. Low-lying pat gela with large joint effusion. 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 Intra-articular fracture fragment noted adjacent to the patella. Moderate soft tissue swelling. Proximal tibia and fibula appear intact. IMPRESSION: 1. Acute comminuted, angulated, displaced and impacted distal femoral fracture with probable fracture extension into the intercondylar notch. 2. Large joint effusion with moderate soft tissue swelling. The above report was generated using voice recognition software. It may contain grammatical, syntax o r spelling errors. Electronically signed by: Lazaro Meehan M.D. 08/15/2019 3:29 PM
--- NOTE | 2019-08-15 15:34 | XRay Report ---
XR elbow LT min 3V routine HISTORY: 79 years-old Female fall, pain acute left elbow pain status post fall COMPARISON: None available TECHNIQUE: 3 views of the left elbow FINDINGS: Mineralized appearance of the bones. Marginal spurring of the elbow. There is an acute mildly impacte d radial head/neck fracture. There is subluxation of the radiocapitellar and trochlear olecranon gwyn culations. No definitive acute fracture of the distal humerus or proximal ulna identified. Moderate j oint effusion. IMPRESSION: 1. Acute mildly impacted and displaced radial head/neck fracture. 2. Subluxation of the radiocapitellar and trochlear olecranon articulations with volar subluxation of the distal humerus. 3. Moderate joint effusion. The above report was generated using voice recognition software. It may contain grammatical, syntax o r spelling errors. Electronically signed by: Lazaro Meehan M.D. 08/15/2019 3:33 PM
[2019-08-15 15:41] LABS: Hematocrit (blood only) 33.2 % (37-47); Hemoglobin 10.7 g/dL (12.0-16.0); Mean Corpuscular Hemoglobin 29.6 pg (25-34); Mean Corpuscular Hgb Conc 32.2 g/dL (32-36); Mean Platelet Volume 9.5 fL (7.4-10.4); Platelet Count 103 K/uL (130-400); RDW Coefficient of Variation 14.5 % (11.5-14.5); RDW Standard Deviation 48.9 fL (36.4-46.3); Red Blood Count 3.61 M/uL (4.2-5.4); White Blood Count 5.71 K/uL (4.8-10.8)
[2019-08-15 16:00] LABS: BUN Creatinine Ratio 18.2 (10-20); Calcium 8.7 mg/dl (8.5-10.1); Creatinine Clr Calc Pharmacy 60.9 ml/min; Est GFR (African American) 73.5; Est GFR (Non-African American) 63.4; Potassium 4.1 mmol/L (3.5-5.1)
--- NOTE | 2019-08-15 16:24 | Emergency Department Note ---
Entered by Lisa Bello acting as a scribe for Robert Morrison MD History of Present Illness General Chief complaint: Fall Stated complaint: fall/ knee & elbow injury Time Seen by Provider: 08/15/19 14:49 Source: patient and EMS Limitations: no limitations History of Present Illness Onset (ago): hour(s) (2.5) Location: head Pain Consistency: + other (episode) Current Pain Intensity: 6 Quality: + other (fall) Associated symptoms: + denies other symptoms ( LOC, neck pain, and hitting her head) and + other (left knee and left elbow pain) Treatments prior to arrival: other (Fentanyl) The patient is a 79 year old female who presents to the Emergency Room with complaints of an episode of a fall that occurred at 12:30 today, about 2.5 hours ago. She reports that she tripped over her dog's bed, and she fell on her left knee and left elbow. She reports that she couldn't get up after the fall, so she called her daughter to call 911. The patient rates her elbow and knee pain as a 6/10 in severity. She denies any LOC, neck pain, and hitting her head. Per EMS, the patient had Fentanyl [employer]. The patient notes that she takes a baby Aspirin daily, but she denies the use of any other blood thinners. Home Medications Home Medications Medication Instructions Recorded Confirmed Type aspirin 81 mg tablet,delayed 81 mg PO DAILY tab 08/13/19 08/15/19 History release atorvastatin 10 mg tablet 10 mg PO Q OTHER DAY #90 tab 08/13/19 08/15/19 History blood sugar diagnostic strips #10 ea 08/13/19 08/15/19 History brimonidine 0.15 % eye drops 1 drops OP BID ml 08/13/19 08/15/19 History calcium carbonate 600 mg calcium 600 mg PO DAILY tab 08/13/19 08/15/19 History (1,500 mg) tablet cyanocobalamin (vit B-12) 500 mcg 500 mcg SUBLINGUAL DAILY tab 08/13/19 08/15/19 History disintegrating tablet,sublingual ergocalciferol (vitamin D2) 50,000 50,000 units PO WEEKLY #14 cap 08/13/1910/22 History unit capsule esomeprazole magnesium 40 mg 40 mg PO DAILY cap 08/13/19 08/15/19 History capsule,delayed release insulin aspart U- 100 100 unit/mL 26 units SQ UNKNOWN ml 08/13/19 08/15/19 History subcutaneous solution insulin syringe U-100 with needle #10 ea 08/13/19 08/15/19 History 0.5 mL 31 gauge x 5/16" lancets 33 gauge #100 ea 08/13/19 08/15/19 History latanoprost 0.005 % eye drops 1 drops OPB DAILY ml 08/13/19 08/15/19 History lisinopril 5 mg tablet 5 mg PO DAILY tab 08/13/19 08/15/19 History metoprolol tartrate 25 mg tablet 25 mg PO DAILY tab 08/13/19 08/15/19 History mirabegron ER 50 mg 50 mg PO DAILY #90 tab 08/13/19 08/15/19 History tablet,extended release 24 hr montelukast 10 mg tablet 10 mg PO DAILY tab 08/13/19 08/15/19 History solifenacin 10 mg tablet 10 mg PO DAILY #90 tab 08/13/19 08/15/19 History escitalopram oxalate [Lexapro] 10 mg PO DAILY 08/15/19 08/15/19 History metoprolol succinate [Toprol XL] 25 mg PO DAILY 08/15/19 08/15/19 History nhxinnos-lqv-AX-lycopen-lutein 1 tab PO DAILY 08/15/19 08/15/19 History [Centrum Silver] Allergies Allergy/AdvReac Type Severity Reaction Status Date / Time latex Allergy Intermediate RASH Verified 08/15/19 16:15 LOCALIZED erythromycin base Allergy Mild RASH Verified 08/15/19 16:15 Quinolones Allergy Mild RASH Verified 08/15/19 16:15 chlorhexidine Allergy Unknown SKIN Verified 08/15/19 16:15 BLISTERS Cipro Allergy Unknown RASH Verified 06/02/18 14:15 ciprofloxacin Allergy Unknown RASH Verified 08/15/19 16:15 isopropyl alcohol Allergy Unknown SKIN Verified 08/15/19 16:15 BLISTERS hydromorphone AdvReac Intermediate RASH Verified 08/15/19 16:15 iron AdvReac Intermediate CHEST Verified 08/15/19 16:15 PAIN, IRON DEXTRAN morphine AdvReac Unknown RASH -HIVE Verified 08/15/19 16:15 LIKE Past Med/Surg History Medical History Osteoarthritis of ankle, right Depression Diabetes HLD (hyperlipidemia) HTN (hypertension) V tach Surgical History H/O total colectomy Family History Other Family history non-contributory Social History Preferred Language: Urdu Communication Ability: Effective Feels Safe at Home: Yes Smoking Status: Never smoker Review of Systems See HPI for pertinent positives & negatives. and A total of 10 systems reviewed and were otherwise negative Physical Exam Vital Signs Vital Signs - 24 hr 08/15/19 14:52 08/15/19 17:00 08/15/19 18:00 Temperature 36.6 C Temperature Source Oral Sepsis Recent Fever Within 48 Hours No Sepsis New/Unexplained Change in Mental Status No Sepsis Action Taken by Nursing No Action Required Pulse Rate 91 H Pulse Rate [Apical] 85 88 Pulse Rhythm Regular Pulse Rhythm [Apical] Regular Regular Pulse Strength Normal Pulse Strength [Apical] Normal Normal Respiratory Rate 20 20 20 Respiratory Effort / Characteristics Non-Labored Spontaneous Non-Labored Spontaneous Non-Labored Spontaneous Respiratory Depth Normal Normal Normal Respiratory Pattern Regular Regular Regular Blood Pressure 150/76 H Blood Pressure [Right Arm] 150/73 H 144/80 H Blood Pressure Mean 100 Blood Pressure Mean [Right Arm] 98 101 Blood Pressure Position Lying Blood Pressure Position [Right Arm] Lying Lying Pulse Oximetry 89 L 94 96 Oxygen Delivery Method Room Air Nasal Cannula Nasal Cannula Oxygen Flow Rate 2 2 08/15/19 18:06 Temperature Temperature Source Sepsis Recent Fever Within 48 Hours Sepsis New/Unexplained Change in Mental Status Sepsis Action Taken by Nursing Pulse Rate Pulse Rate [Apical] 89 Pulse Rhythm Pulse Rhythm [Apical] Regular Pulse Strength Pulse Strength [Apical] Normal Respiratory Rate 20 Respiratory Effort / Characteristics Non-Labored Spontaneous Respiratory Depth Normal Respiratory Pattern Regular Blood Pressure Blood Pressure [Right Arm] 150/73 H Blood Pressure Mean Blood Pressure Mean [Right Arm] 98 Blood Pressure Position Blood Pressure Position [Right Arm] Lying Pulse Oximetry 96 Oxygen Delivery Method Nasal Cannula Oxygen Flow Rate 2 GENERAL: Patient is in no acute distress. HEENT: No acute trauma, normocephalic atraumatic, mucous membranes moist, no nasal congestion, no scleral icterus. NECK: No stridor, no adenopathy, no meningismus, trachea is midline. Nontender cervical spine. LUNGS: Clear to auscultation bilaterally, no wheeze, no rhonchi, breath sounds equal. HEART: 2/6 systolic murmur, regular rate and rhythm. ABDOMEN: Soft, nontender, bowel sounds positive, no hernias, no peritonitis, ileostomy present. EXTREMITIES: Left upper extremity is flexed at the elbow. She has pain to move the left elbow joint with some crepitus noted. No obvious joint effusion and no obvious gross deformity. Left knee is flexed and supported by a pillow. Large joint effusion. There is pain to palpate the entire knee and to move the knee. NVI distally in the LLE. NEUROLOGIC: Oriented x 3, no acute motor or sensory deficits, no focal weakness. SKIN: No rash, no jaundice, no diaphoresis. Procedures Free Text Procedures Left elbow reduction: The left humerus was stabilized. Then using some traction on the forearm, I was able to reduce the left elbow dislocation. No compilations. Pt tolerated the procedure well. A strong distal radial pulse note after the reduction. Post reduction films showed the elbow was in place. Course 1450: The patient was evaluated in room C03. A complete history and physical exam was performed. 1604: I spoke with Dr. Bobby, orthopedics, about the patients case. He will evaluate the patient. 1615: I updated the patient on the plan, and she was in agreement. 1722: I updated the patient, and she was fine with waiting for Dr. Bobby. 1725: I spoke with Dr. Bobby, and he wanted the patient admitted to medicine. 1750: I spoke with Dr. Ignacia Ivey, [facility] hospitalist, about the patient's case. He will further evaluate the patient. 1752: The patient's sling and immobilizer are on. She is doing okay. Consultations Consultation #1: I spoke with Dr. Bobby, orthopedics, about the patients case. He will evaluate the patient. Time: 16:04 Consultation #2: I spoke with Dr. Ignacia Ivey, [facility] hospitalist, about the patient's case. He will further evaluate the patient. Time: 17:50 Administered Medications Fentanyl Citrate (Fentanyl Citrate) 50 mcg IV Q15M PRN PRN Reason: Pain Stop: 08/29/19 14:54 Last Admin: 08/15/19 19:17 Dose: 50 mcg Documented by: [id number] Admin: 08/15/19 17:02 Dose: 50 mcg Documented by: [id number] Admin: 08/15/19 15:54 Dose: 50 mcg Documented by: [id number] Admin: 08/15/19 15:25 Dose: 50 mcg Documented by: [id number] Acetaminophen (Ofirmev) 1,000 mg in 100 mls @ 400 mls/hr IV Q8H SHAYNE Stop: 09/14/19 18:29 Last Infusion: 08/15/19 19:40 Dose: 0 mls/hr Documented by: [id number] Admin: 08/15/19 19:16 Dose: 400 mls/hr Documented by: [id number] Discontinued Medications Sodium Chloride (Nss 1000ml) 500 mls @ 999 mls/hr IV .Q31M ONE Stop: 08/15/19 15:25 Last Infusion: 08/15/19 15:56 Dose: 0 mls/hr Documented by: [id number] Admin: 08/15/19 15:26 Dose: 999 mls/hr Documented by: [id number] Ondansetron HCl (Zofran) 4 mg IV NOW STA Stop: 08/15/19 14:56 Last Admin: 08/15/19 15:26 Dose: 4 mg Documented by: [id number] Medical Decision Making Differential Diagnosis The differential diagnosis includes: knee joint effusion, patella fracture, tibial plateau fracture, fracture to the tibia, knee dislocation, ligamentous, injury to the knee, left elbow fracture, left elbow dislocation, and left elbow contusion. Medical Records Attestation: I reviewed the patient's medical records. Home Medications Current Medication List: was personally reviewed by me Laboratory Data Attestation: I reviewed the patient's lab results. Result diagrams: 08/15/19 15:31 08/15/19 15:31 Lab Results 08/15/19 08/15/19 Range/Units 15:31 15:31 WBC 5.71 (4.8-10.8) K/uL RBC 3.61 L (4.2-5.4) M/uL Hgb 10.7 L (12.0-16.0) g/dL Hct 33.2 L (37-47) % MCV 92.0 (80-100) fL MCH 29.6 (25-34) pg MCHC 32.2 (32-36) g/dL RDW Std Deviation 48.9 H (36.4-46.3) fL RDW Coeff of Gary 14.5 (11.5-14.5) % Plt Count 103 L (130-400) K/uL MPV 9.5 (7.4-10.4) fL Sodium 138 (136-145) mmol/L Potassium 4.1 (3.5-5.1) mmol/L Chloride 104 (98-107) mmol/L Carbon Dioxide 31 (21-32) mmol/L Anion Gap 3.0 (3-11) BUN 16 (7-18) mg/dl Creatinine 0.88 (0.6-1.2) mg/dl Est Cr Clr Drug Dosing 60.9 ml/min Est GFR ( Amer) 73.5 Est GFR (Non-Af Amer) 63.4 BUN/Creatinine Ratio 18.2 (10-20) Glucose 129 H (70-99) mg/dl Calcium 8.7 (8.5-10.1) mg/dl Imaging Data Radiologist's Impression: Radiology results as stated below per my review and the radiologist's interpretation: Left knee film: IMPRESSION: 1. Acute comminuted, angulated, displaced and impacted distal femoral fracture with probable fracture extension into the intercondylar notch. 2. Large joint effusion with moderate soft tissue swelling. The above report was generated using voice recognition software. It may contain grammatical, syntax or spelling errors. Electronically signed by: Lazaro Meehan M.D. 08/15/2019 3:29 PM XR elbow LT min 3V routine HISTORY: 79 years-old Female fall, pain acute left elbow pain status post fall COMPARISON: None available TECHNIQUE: 3 views of the left elbow FINDINGS: Mineralized appearance of the bones. Marginal spurring of the elbow. There is an acute mildly impacted radial head/neck fracture. There is subluxation of the radiocapitellar and trochlear olecranon articulations. No definitive acute fracture of the distal humerus or proximal ulna identified. Moderate joint effusion. IMPRESSION: 1. Acute mildly impacted and displaced radial head/neck fracture. 2. Subluxation of the radiocapitellar and trochlear olecranon articulations with volar subluxation of the distal humerus. 3. Moderate joint effusion. The above report was generated using voice recognition software. It may contain grammatical, syntax or spelling errors. Electronically signed by: Lazaro Meehan M.D. 08/15/2019 3:33 PM Left elbow film postreduction: IMPRESSION: 1. Satisfactory positioning of the elbow articulation status post reduction. 2. Moderate hemarthrosis of the elbow. 3. Acute mildly displaced radial head fracture redemonstrated. The above report was generated using voice recognition software. It may contain grammatical, syntax or spelling errors. Electronically signed by: Lazaro Meehan M.D. 08/15/2019 6:00 PM Blood Pressure Blood Pressure Findings: Elevated blood pressure Blood Pressure Disposition: further management by hospitalist DARRELL Narrative There is no leukocytosis. The patient is anemic but she has a history of the same. No worrisome electrolyte abnormality, no kidney failure. Left knee film does show a distal femur fracture with a large knee joint effusion. Left elbow film shows a radial head/neck fracture with subluxation of the elbow joint. On exam, I found no evidence for injury to the head, neck, chest or abdomen. There was no evidence for neurovascular compromise to the left upper extremity or left lower extremity. Patient received IV Tylenol for pain, she was given IV fentanyl for pain as needed. She received IV Zofran and IV saline. I did speak with orthopedics. The patient will require surgical intervention. Hospitalization was warranted. I was able to extend the patient's left knee. She was then placed in a knee i mmobilizer. The left upper extremity elbow subluxation/dislocation was reduced without complication, please see the above note. A left arm sling was then applied. The patient is aware of her findings, I did speak with case management. The on- call hospitalist was consulted. Impression & Plan Closed fracture of left distal femur, Closed fracture of left elbow, Effusion of knee joint, left, Fall Discharge Plan Visit Data Chief Complaint: Fall Stated Complaint: fall/ knee & elbow injury ED Provider: Robert Morrison Discharge Problem: Closed fracture of left distal femur, Closed fracture of left elbow, Effusion of knee joint, left, Fall Patient Disposition: Being Evaluated by Hospitalist Discharge Problem: Closed fracture of left distal femur Qualifiers: Encounter type: initial encounter Fracture morphology: unspecified fracture morphology Qualified Code(s): S72.402A - Unspecified fracture of lower end of left femur, initial encounter for closed fracture Closed fracture of left elbow Qualifiers: Encounter type: initial encounter Qualified Code(s): S42.402A - Unspecified fracture of lower end of left humerus, initial encounter for closed fracture Fall Qualifiers: Encounter type: initial encounter Qualified Code(s): W19.XXXA - Unspecified fall, initial encounter The scribe's documentation has been prepared under my direction and personally reviewed by me in its entirety. I confirm that the note above accurately reflects all work, treatment, procedures, and medical decision making performed by me.
--- NOTE | 2019-08-15 18:01 | XRay Report ---
XR elbow LT 2V HISTORY: 79 years-old Female post reduc status post reduction of the left elbow dislocation COMPARISON: Left elbow radiographs of same day at 2:57 PM TECHNIQUE: Single portable lateral view of the left elbow FINDINGS: Status post reduction of the left elbow subluxation, now with satisfactory positioning. Moderate arjun rthrosis redemonstrated. Acute displaced radial head fracture redemonstrated with 4 mm bone fragment noted superior to the coronoid process. IMPRESSION: 1. Satisfactory positioning of the elbow articulation status post reduction. 2. Moderate hemarthrosis of the elbow. 3. Acute mildly displaced radial head fracture redemonstrated. The above report was generated using voice recognition software. It may contain grammatical, syntax o r spelling errors. Electronically signed by: Lazaro Meehan M.D. 08/15/2019 6:00 PM
--- NOTE | 2019-08-15 18:47 | History & Physical Report ---
Date of Service August 15, 2019 Assessment & Plan (1) Closed fracture of left distal femur: - Acute fracture of distal femur with extension into intercondylar notch following fall at home. - Orthopedics consult for evaluation. - Pre-op EKG pending; has mild SOB with prolonged exertion, otherwise denies cardiac symptoms. - Tylenol 1 gm q8hr scheduled; Tramadol prn moderate pain, Fentanyl IV prn severe pain (allergy to morphine) - NPO after midnight for possible surgical intervention. - Strict bedrest. (2) Closed fracture of left elbow: - Mildly displaced radial head fracture. - Orthopedics consulted, appreciate input. - Pain control as noted above. (3) Effusion of knee joint, left: - In setting of fall/acute fracture. (4) Fall: - Likely mechanical fall; no indication for cardiac work up. - Will need PT/OT prior to discharge. (5) Diabetes mellitus: - Most recent A1C was 5.1 in Jul 2019. - Pt. has insulin pump -- can continue to use as inpatient. (6) HLD (hyperlipidemia): - Continue statin; hold ASA. (7) HTN (hypertension): - Continue Metoprolol as prescribed; holding Lisinopril in operative setting. (8) Depression: - Continue Lexapro as prescribed. (9) Right bundle branch block: - H/o RBBB; Pre-op EKG is pending. - Follows annually with Dr. Israel. (10) DVT prophylaxis: - SCDs; holding pharmacologic ppx for procedure. Dispo: Med/surg with tele (due to h/o V. tach); ortho consult pending. History of Present Illness Chief Complaint: Fall Primary Care Provider: Patrick Kim Mrs. Becker is a 79 year old female with past medical history of HLD, DM, HTN, Depression, V. tach, total colectomy s/p ileostomy placement who presented to the ER following a fall at home. Pt. reports she tripped on a dog bed and fell to the ground. She landed on her left elbow and left knee. She has had severe pain in both joints following fall. Pt. rates knee pain as a 10/10 on pain scale and elbow pain as a 4/10 on pain scale. Complains of nausea but denies vomiting. Denies headache, visual changes, chest pain, SOB, abd pain, decreased ostomy output, urinary retention, dysuria or hematuria. ER course: Knee XR showed an acute comminuted, angulated displaced and impacted distal femoral fracture with fracture extension into the intercondylar notch and elbow XR showed acute mildly displaced radial head fracture. She received Fentanyl IV for pain control (allergy to morphine). Will be admitted for evaluation by Dr. Bobby. Allergies Allergy/AdvReac Type Severity Reaction Status Date / Time latex Allergy Intermediate RASH Verified 08/15/19 16:15 LOCALIZED erythromycin base Allergy Mild RASH Verified 08/15/19 16:15 Quinolones Allergy Mild RASH Verified 08/15/19 16:15 chlorhexidine Allergy Unknown SKIN Verified 08/15/19 16:15 BLISTERS Cipro Allergy Unknown RASH Verified 06/02/18 14:15 ciprofloxacin Allergy Unknown RASH Verified 08/15/19 16:15 isopropyl alcohol Allergy Unknown SKIN Verified 08/15/19 16:15 BLISTERS hydromorphone AdvReac Intermediate RASH Verified 08/15/19 16:15 iron AdvReac Intermediate CHEST Verified 08/15/19 16:15 PAIN, IRON DEXTRAN morphine AdvReac Unknown RASH -HIVE Verified 08/15/19 16:15 LIKE Home Medications Home Medications Medication Instructions Recorded Confirmed Type aspirin 81 mg tablet,delayed 81 mg PO DAILY tab 08/13/19 08/15/19 History release atorvastatin 10 mg tablet 10 mg PO Q OTHER DAY #90 tab 08/13/19 08/15/19 History blood sugar diagnostic strips #10 ea 08/13/19 08/15/19 History brimonidine 0.15 % eye drops 1 drops OP BID ml 08/13/19 08/15/19 History calcium carbonate 600 mg calcium 600 mg PO DAILY tab 08/13/19 08/15/19 History (1,500 mg) tablet cyanocobalamin (vit B-12) 500 mcg 500 mcg SUBLINGUAL DAILY tab 08/13/19 08/15/19 History disintegrating tablet,sublingual ergocalciferol (vitamin D2) 50,000 50,000 units PO WEEKLY #14 cap 08/13/19 08/15/19 History unit capsule esomeprazole magnesium 40 mg 40 mg PO DAILY cap 08/13/19 08/15/19 History capsule,delayed release insulin aspart U- 100 100 unit/mL 26 units SQ UNKNOWN ml 08/13/19 08/15/19 History subcutaneous solution insulin syringe U-100 with needle #10 ea 08/13/19 08/15/19 History 0.5 mL 31 gauge x 5/16" lancets 33 gauge #100 ea 08/13/19 08/15/19 History latanoprost 0.005 % eye drops 1 drops OPB DAILY ml 08/13/19 08/15/19 History lisinopril 5 mg tablet 5 mg PO DAILY tab 08/13/19 08/15/19 History metoprolol tartrate 25 mg tablet 25 mg PO DAILY tab 08/13/19 08/15/19 History mirabegron ER 50 mg 50 mg PO DAILY #90 tab 08/13/19 08/15/19 History tablet,extended release 24 hr montelukast 10 mg tablet 10 mg PO DAILY tab 08/13/19 08/15/19 History solifenacin 10 mg tablet 10 mg PO DAILY #90 tab 08/13/19 08/15/19 History escitalopram oxalate [Lexapro] 10 mg PO DAILY 08/15/19 08/15/19 History metoprolol succinate [Toprol XL] 25 mg PO DAILY 08/15/19 08/15/19 History zyeunjqp-tgx-BH-lycopen-lutein 1 tab PO DAILY 08/15/19 08/15/19 History [Centrum Silver] Past Med/Surg History Medical History Osteoarthritis of ankle, right Depression Diabetes HLD (hyperlipidemia) HTN (hypertension) V tach Surgical History H/O total colectomy Family History Other Family history non-contributory Social History Preferred Language: Salvadorean Communication Ability: Effective Feels Safe at Home: Yes Smoking Status: Never smoker Review of Systems Review of Systems: All systems reviewed & are unremarkable except as noted in HPI & below Constitutional: no fever, no chills, no fatigue, no weakness and no anorexia Respiratory: no cough, no dyspnea, no dyspnea on exertion and no wheezing Cardiovascular: no chest pain, no palpitations, no lightheadedness and no edema Gastrointestinal: no abdominal pain, no nausea, no vomiting and no constipation Genitourinary: no dysuria, no difficulty urinating, no urinary frequency and no hematuria Musculoskeletal: + joint pain and + swelling; no back pain Integumentary: no non-healing lesions Neurologic: + falls; no gait abnormality, no unsteadiness, no dizziness, no headache(s) and no confusion Allergy / Immunological: no rash Physical Exam Physical Exam: General: In mild distress 2/2 pain. HEENT: NC/AT; PERRLA with EOMI; [place] conjunctiva, MMM. No erythema of posterior pharynx Neck: Supple and nontender Cardiac: RRR w/o murmurs, gallops or rubs Lungs: CTA bilaterally Abdomen: Bowel normoactive X 4; Nontender to palpation Rectal: Deferred : Deferred Back: NO spinous tenderness Extremities: Warm. No edema present. Left knee with brace, did not palpate for pt. comfort. Also has sling on left elbow, full ROM of left digits and intact to light sensation. Neuro: No focal weakness Skin: No rash Constitutional: WD/WN, vitals as above Eyes: normal visual mcelroy by confrontation and + anicteric sclerae Neck: normal visual inspection and trachea midline Respiratory: normal respiratory effort, lungs clear to auscultation Cardiovascular: Rate/Rhythm: regular rate and regular rhythm Gastrointestinal (Abdomen): Inspection/Auscultation: abdomen not distended Percussion/Palpation: abdomen soft; abdomen nontender Musculoskeletal: Head/Neck/Chest: normocephalic and head atraumatic Neg for peripheral LE edema, + pedal pulses Skin: no rashes, warm and dry Neurologic: awake; not confused Speech / Cognition: normal speech Psychiatric: A+Ox3, euthymic affect Lymphatic: Exam as done by Ignacia Ivey DO Results & Data Vital Signs (Past 12 Hours) Vital Signs Temp Pulse Pulse Resp BP BP Pulse Ox 08/15/19 18:06 89 20 150/73 H 96 08/15/19 18:00 88 20 144/80 H 96 08/15/19 17:00 85 20 150/73 H 94 08/15/19 14:52 36.6 C 91 H 20 150/76 H 89 L Laboratory Results 08/15/19 08/15/19 Range/Units 15:31 15:31 WBC 5.71 (4.8-10.8) K/uL RBC 3.61 L (4.2-5.4) M/uL Hgb 10.7 L (12.0-16.0) g/dL Hct 33.2 L (37-47) % MCV 92.0 (80-100) fL MCH 29.6 (25-34) pg MCHC 32.2 (32-36) g/dL RDW Std Deviation 48.9 H (36.4-46.3) fL RDW Coeff of Gary 14.5 (11.5-14.5) % Plt Count 103 L (130-400) K/uL MPV 9.5 (7.4-10.4) fL Sodium 138 (136-145) mmol/L Potassium 4.1 (3.5-5.1) mmol/L Chloride 104 (98-107) mmol/L Carbon Dioxide 31 (21-32) mmol/L Anion Gap 3.0 (3-11) BUN 16 (7-18) mg/dl Creatinine 0.88 (0.6-1.2) mg/dl Est Cr Clr Drug Dosing 60.9 ml/min Est GFR ( Amer) 73.5 Est GFR (Non-Af Amer) 63.4 BUN/Creatinine Ratio 18.2 (10-20) Glucose 129 H (70-99) mg/dl Calcium 8.7 (8.5-10.1) mg/dl Code Status & VTE Plan Code Status FULL CODE VTE Prophylaxis Plan VTE Prophylaxis will be ordered: Yes Supervising Physician Co-Signing Physician Notes Pt seen and examined by me. Denies chest pain or SOB. States she is having nausea without emesis now and is requesting zofran. Also having increased pain and requesting pain meds. Agree with HPI/ROS as noted by PA See above for my exam in PE section Agree with plan as outlined above Mechanical fall with femur fx and elbow dislocation Dr. Bobby to see Other medical issues WNL Acceptable risk for OR PG Care Time/CCT Total # of Minutes Spent Total Time Spent with Patient: Total time spent is greater than 50% in coordination of care (as documented) at patient's floor/unit and/or counseling patient: (1) Closed fracture of left elbow Encounter type: initial encounter Qualified Code(s): S42.402A - Unspecified fracture of lower end of left humerus, initial encounter for closed fracture (2) Closed fracture of left distal femur Encounter type: initial encounter Fracture morphology: unspecified fracture morphology Qualified Code(s): S72.402A - Unspecified fracture of lower end of left femur, initial encounter for closed fracture (3) Fall Encounter type: initial encounter Qualified Code(s): W19.XXXA - Unspecified fall, initial encounter
[2019-08-15] MEDS: ACETAMINOPHEN 1,000 MG/100 ML VIAL IV SCH (19:16)
--- NOTE | 2019-08-15 20:36 | History & Physical Bridge Note ---
Date of Service August 15, 2019 Called by nursing. Pt cannot go to floor with IV fentanyl order. Pt with allergy to morphine and dilaudid. Place on med/surg with tele monitor for fentanyl use History & Physical Bridge Note I have examined the patient, reviewed the History & Physical and in the interval since the performance of the History & Physical I have noted the following changes of clinical significance: no changes noted
[2019-08-15] MEDS ORDERED: ONDANSETRON INJ 2 MG/ML 2 ML VIAL IV PRN (23:28)
[2019-08-15] MEDS ORDERED: BRIMONIDINE OP SCH (23:28)
[2019-08-15] MEDS ORDERED: POLYETHYLENE (MIRALAX) 17 GM PACK PO PRN (23:28)
[2019-08-16] MEDS: fentaNYL citrate 100 MCG/2 ML VIAL IV PRN ×15 (00:03→14:55)
[2019-08-16] MEDS: TRAMADOL HCL 50 MG TABLET PO PRN ×2 (00:04→20:37)
[2019-08-16] MEDS ORDERED: INFLUENZA ADMINISTRATION CHARGE ONE (00:30)
[2019-08-16] MEDS ORDERED: INFLUENZA VACCINE HIGH DOSE 65+ 0.5 ML SYR IM ONE (00:30)
[2019-08-16] MEDS: ACETAMINOPHEN 1,000 MG/100 ML VIAL IV SCH ×3 (02:39→17:06)
[2019-08-16 06:39] LABS: Hematocrit (blood only) 29.9 % (37-47); Hemoglobin 9.7 g/dL (12.0-16.0); Mean Corpuscular Hemoglobin 29.6 pg (25-34); Mean Corpuscular Hgb Conc 32.4 g/dL (32-36); Mean Corpuscular Volume 91.2 fL (80-100); Mean Platelet Volume 9.1 fL (7.4-10.4); Platelet Count 116 K/uL (130-400); RDW Coefficient of Variation 14.7 % (11.5-14.5); RDW Standard Deviation 49.3 fL (36.4-46.3); Red Blood Count 3.28 M/uL (4.2-5.4); White Blood Count 9.56 K/uL (4.8-10.8)
[2019-08-16 07:10] LABS: Albumin Level 3.3 gm/dl (3.4-5.0); BUN Creatinine Ratio 19.3 (10-20); Calcium 8.5 mg/dl (8.5-10.1); Creatinine Clr Calc Pharmacy 63.8 ml/min; Est GFR (African American) 74.5; Est GFR (Non-African American) 64.3; Potassium 3.7 mmol/L (3.5-5.1)
[2019-08-16 07:13] LABS: Bilirubin,Total 1.2 mg/dl (0.2-1); Globulin 3.3 gm/dl (2.5-4.0); Total Protein 6.6 gm/dl (6.4-8.2)
[2019-08-16] MEDS ORDERED: ONDANSETRON INJ 2 MG/ML 2 ML VIAL ONE (07:25)
[2019-08-16] MEDS ORDERED: NEOSTIGMINE METHYLSULFATE 5 MG/5 ML SYR ONE (07:25)
[2019-08-16] MEDS ORDERED: MIDAZOLAM HCL 1 MG/ML 2ML VIAL ONE (07:25)
[2019-08-16] MEDS ORDERED: PROPOFOL IV EMULSION 10 MG/ML 20 ML VIAL IV ONE (07:25)
[2019-08-16] MEDS ORDERED: LIDOCAINE HCL 2% 2 ML VIAL/AMP(20MG/ML) INFIL ONE (07:25)
[2019-08-16] MEDS ORDERED: GLYCOPYRROLATE 0.2 MG/ML VIAL ONE (07:25)
[2019-08-16] MEDS ORDERED: fentaNYL citrate 100 MCG/2 ML VIAL ONE ×5 (07:25→14:48)
[2019-08-16] MEDS ORDERED: DEXAMETHASONE SOD INJ 4 MG/ML VIAL ONE (07:25)
--- NOTE | 2019-08-16 07:46 | Anesthesiology Consultation ---
Date of Service August 16, 2019 Assessment & Plan Chart Review Chart Review: Acceptable Risk for Surgery Consults Requested none Proposed Anesthesia Risk / Benefits Reviewed With: PT / POA / Parent / Guardian, Accepts Plan and Informed Consent Obtained History Surgery Operation Date: 08/16/19 07:30 Proposed Procedures p Open Reduction Internal Fixation Femur - Florian Bobby DO s Open Reduction Internal Fixation Elbow - Florian Bobby DO Height/Weight Height: 5 ft 6 in Weight: 97.5 kg Allergies Allergy/AdvReac Type Severity Reaction Status Date / Time latex Allergy Intermediate RASH Verified 08/15/19 16:15 LOCALIZED erythromycin base Allergy Mild RASH Verified 08/15/19 16:15 Quinolones Allergy Mild RASH Verified 08/15/19 16:15 chlorhexidine Allergy Unknown SKIN Verified 08/15/19 16:15 BLISTERS Cipro Allergy Unknown RASH Verified 06/02/18 14:15 ciprofloxacin Allergy Unknown RASH Verified 08/15/19 16:15 isopropyl alcohol Allergy Unknown SKIN Verified 08/15/19 16:15 BLISTERS hydromorphone AdvReac Intermediate RASH Verified 08/15/19 16:15 iron AdvReac Intermediate CHEST Verified 08/15/19 16:15 PAIN, IRON DEXTRAN morphine AdvReac Unknown RASH -HIVE Verified 08/15/19 16:15 LIKE Medications Home Medications Medication Instructions Recorded Confirmed Last Taken aspirin 81 mg tablet,delayed 81 mg PO DAILY tab 08/13/19 08/15/19 Unknown release atorvastatin 10 mg tablet 10 mg PO Q OTHER DAY #90 tab 08/13/19 08/15/19 Unknown blood sugar diagnostic strips #10 ea 08/13/19 08/15/19 Unknown brimonidine 0.15 % eye drops 1 drops OP BID ml 08/13/19 08/15/19 08/15/19 calcium carbonate 600 mg calcium 600 mg PO DAILY tab 08/13/19 08/15/19 Unknown (1,500 mg) tablet cyanocobalamin (vit B-12) 500 mcg 500 mcg SUBLINGUAL DAILY tab 08/13/19 08/15/19 Unknown disintegrating tablet,sublingual ergocalciferol (vitamin D2) 50,000 50,000 units PO WEEKLY #14 cap 08/13/19 08/15/19 Unknown unit capsule esomeprazole magnesium 40 mg 40 mg PO DAILY cap 08/13/19 08/15/19 Unknown capsule,delayed release insulin aspart U- 100 100 unit/mL 26 units SQ UNKNOWN ml 08/13/19 08/15/19 Unknown subcutaneous solution insulin syringe U-100 with needle #10 ea 08/13/19 08/15/19 Unknown 0.5 mL 31 gauge x 5/16" lancets 33 gauge #100 ea 08/13/19 08/15/19 Unknown latanoprost 0.005 % eye drops 1 drops OPB DAILY ml 08/13/19 08/15/19 Unknown lisinopril 5 mg tablet 5 mg PO DAILY tab 08/13/19 08/15/19 Unknown metoprolol tartrate 25 mg tablet 25 mg PO DAILY tab 08/13/19 08/15/19 Unknown mirabegron ER 50 mg 50 mg PO DAILY #90 tab 08/13/19 08/15/19 Unknown tablet,extended release 24 hr montelukast 10 mg tablet 10 mg PO DAILY tab 08/13/19 08/15/19 Unknown solifenacin 10 mg tablet 10 mg PO DAILY #90 tab 08/13/19 08/15/19 Unknown escitalopram oxalate [Lexapro] 10 mg PO DAILY 08/15/19 08/15/19 Unknown metoprolol succinate [Toprol XL] 25 mg PO DAILY 08/15/19 08/15/19 Unknown zkrzxxli-osa-PT-lycopen-lutein 1 tab PO DAILY 08/15/19 08/15/19 Unknown [Centrum Silver] Active Medications Generic Name Dose Route Start Last Admin Trade Name Freq PRN Reason Stop Dose Admin Fentanyl Citrate 50 mcg 08/15/19 23:28 08/16/19 06:11 Fentanyl Citrate IV 08/29/19 23:27 50 mcg Q1H PRN Administration Pain Acetaminophen 1,000 mg in 100 mls @ 400 mls/hr 08/15/19 18:30 08/16/19 02:54 Ofirmev IV 09/14/19 18:29 Infused Q8H SHAYNE Infusion Tramadol HCl 50 mg 08/15/19 23:28 08/16/19 00:04 Ultram PO 09/14/19 23:27 50 mg Q6H PRN Administration moderate pain Past Medical History Medical History Osteoarthritis of ankle, right CAD (coronary artery disease) Carotid artery stenosis Depression Diabetes HLD (hyperlipidemia) HTN (hypertension) Sleep apnea V tach Exercise / Class Metabolic Activity III < 4 Walking/Shop/Light housework Past Family History Family History Other Family history non-contributory Past Surgical History Surgical History H/O total colectomy S/P ankle arthrodesis S/P cholecystectomy S/P foot surgery S/P hysterectomy Past Anesthesia History No Hx of Anesthesia Complications and No Family Hx of Anesthesia Complications History of PONV No Hx of PONV and No Hx of Motion Sickness Social History Smoking Status: Never smoker Do You Dip or Chew Tobacco: No Hx Alcohol Use: No Hx Substance Use: No Physical Exam Vital Signs Last Vital Signs Temp 98.6 F 08/16/19 03:49 Pulse 112 H 08/16/19 03:49 Resp 19 08/16/19 03:49 BP 126/81 08/16/19 03:49 Pulse Ox 95 08/16/19 03:49 ENMT Mouth: no dentition abnormality Thyromental Distance: > or= 3.5 Finger Breadths Mallampati Class: III Neck normal visual inspection Respiratory normal respiratory effort Auscultation: lungs clear to auscultation bilaterally Cardiovascular Rate/Rhythm: regular rate and regular rhythm Vessels: no carotid bruit Testing Laboratory Results 08/16/19 06:23 08/16/19 06:23 08/16/19 08/15/19 06:26 21:49 POC Glucose 186 H 174 H Electrocardiogram Date: 08/16/19 ST with fusion complexes, rate 109 bpm RBBB Echocardiogram Date: 09/02/17 EF: 65% Other Findings: + LVH (mild) Cardiac Catheterization Date: 10/03/17 mild nonobstructive CAD Other Testing Carotid Duplex 09/17/17 <50% ICA stenosis B/L antegrade flow B/L vertebral artery
[2019-08-16] MEDS ORDERED: ePHEDrine sulfate 50 MG/ML AMP IV PRN (07:50)
[2019-08-16] MEDS ORDERED: ATROPINE SULFATE 0.1 MG/ML 10ML SYR IV PRN (07:50)
[2019-08-16] MEDS ORDERED: SODIUM CHLORIDE 0.9% 250 ML IV PRN (07:50)
[2019-08-16] MEDS ORDERED: ONDANSETRON INJ 2 MG/ML 2 ML VIAL IV PRN (07:50)
--- NOTE | 2019-08-16 07:57 | History & Physical Bridge Note ---
Date of Service August 16, 2019 History & Physical Bridge Note I have examined the patient, reviewed the History & Physical and in the interval since the performance of the History & Physical I have noted the following changes of clinical significance: Will need left elbow ORIF with possible radial head replacement and left distal femur ORIF.
[2019-08-16] MEDS ORDERED: NON-FORMULARY MEDICATION (Solifenacin [Vesicare] 10 MG) PO SCH (09:00)
[2019-08-16] MEDS ORDERED: CEFAZOLIN 2000MG 2,000 MG/15 ML SYR IV ONE (09:10)
[2019-08-16] MEDS ORDERED: CEFAZOLIN 250 MG/ML 1 GM VIAL ONE (10:35)
[2019-08-16] MEDS ORDERED: PHENYLEPHRINE 100MCG/ML 5ML SYR ONE (10:36)
--- NOTE | 2019-08-16 11:32 | Hospitalist Progress Note ---
Date of Service August 16, 2019 Assessment & Plan (1) Closed fracture of left distal femur: - Acute fracture of distal femur with extension into intercondylar notch following fall at home. - Orthopedics consulted, s/p ORIF left distal femur today. - Tylenol 1 gm q8hr scheduled; Tramadol prn moderate pain; Fentanyl IV q1hr prn severe pain (has allergy to morphine) - PT/OT evaluation post op for discharge planning. - DVT ppx per orthopedics. (2) Closed fracture of left elbow: - Mildly displaced radial head fracture. - Orthopedics consulted, appreciate input. S/p left elbow ORIF today. - Pain control as noted above. (3) Effusion of knee joint, left: - In setting of fall/acute fracture. (4) Fall: - Likely mechanical fall; no indication for cardiac work up. - PT/OT prior to discharge. (5) Diabetes mellitus: - Most recent A1C was 5.1 in Jul 2019. - Pt. has insulin pump -- can continue to use as inpatient. Will need to remove and order pharmacy consult if BG remains elevated -- 170-180's over last 24 hours. (6) HLD (hyperlipidemia): - Continue statin; hold ASA. (7) HTN (hypertension): - Continue Metoprolol as prescribed; hold Lisinopril, can resume if renal function is stable POD#1. (8) Depression: - Continue Lexapro as prescribed. (9) Right bundle branch block: - H/o RBBB; Pre-op EKG showed known RBBB, otherwise negative. - Follows annually with Dr. Israel. (10) Anemia: - Baseline hgb ~9-11; will need to monitor CBC closely in post op period. - Iron studies in the morning. (11) DVT prophylaxis: - SCDs; hold pharmacologic ppx for procedure. Dispo: Med/surg with tele (due to h/o V. tach); plan for orthopedic intervention today. Supervising Physician Co-Signing Physician Notes Chart reviewed, case discussed with Lisa Phan PAC. Agree with decision making and plan. Care as above. Subjective Pt. is doing well post op -- did have low grade fever of 38.0. Denies significant pain, chest pain, SOB, nausea. Review of Systems Review of Systems: All systems reviewed & are unremarkable except as noted in HPI & below Constitutional: no fever, no chills, no fatigue and no weakness Respiratory: no cough, no dyspnea, no dyspnea on exertion and no wheezing Cardiovascular: no chest pain, no palpitations and no edema Gastrointestinal: no abdominal pain, no nausea and no constipation Genitourinary: no difficulty urinating Musculoskeletal: + joint pain; no back pain Integumentary: no non-healing lesions Physical Exam Physical Exam: General: In mild distress 2/2 pain. HEENT: NC/AT; PERRLA with EOMI; [place] conjunctiva, MMM. No erythema of posterior pharynx Neck: Supple and nontender Cardiac: RRR w/o murmurs, gallops or rubs Lungs: CTA bilaterally Abdomen: Bowel normoactive X 4; Nontender to palpation Extremities: Warm. No edema present. Left knee with dressing, left arm with sling. Neuro: No focal weakness Skin: No rash Results & Data Vital Signs (Past 12 Hours) Vital Signs Temp Pulse Pulse Resp BP Pulse Ox 08/16/19 07:00 109 H 08/16/19 03:49 37.0 C 112 H 19 126/81 95 08/16/19 01:01 109 H 18 93 08/16/19 00:48 101 H 08/15/19 23:29 37.4 C 101 H 18 154/73 H 94 Laboratory Results 08/16/19 08/16/19 08/16/19 Range/Units 10:57 08:02 06:26 WBC (4.8-10.8) K/uL RBC (4.2-5.4) M/uL Hgb (12.0-16.0) g/dL Hct (37-47) % MCV (80-100) fL MCH (25-34) pg MCHC (32-36) g/dL RDW Std Deviation (36.4-46.3) fL RDW Coeff of Gary (11.5-14.5) % Plt Count (130-400) K/uL MPV (7.4-10.4) fL Sodium (136-145) mmol/L Potassium (3.5-5.1) mmol/L Chloride (98-107) mmol/L Carbon Dioxide (21-32) mmol/L Anion Gap (3-11) BUN (7-18) mg/dl Creatinine (0.6-1.2) mg/dl Est Cr Clr Drug Dosing ml/min Est GFR ( Amer) Est GFR (Non-Af Amer) BUN/Creatinine Ratio (10-20) Glucose (70-99) mg/dl POC Glucose 157 H 186 H (70-99) Calcium (8.5-10.1) mg/dl Total Bilirubin (0.2-1) mg/dl AST (15-37) U/L ALT (12-78) U/L Alkaline Phosphatase (45-117) U/L Total Protein (6.4-8.2) gm/dl Albumin (3.4-5.0) gm/dl Globulin (2.5-4.0) gm/dl Albumin/Globulin Ratio (0.9-2) Blood Type O Positive Blood Type Recheck Antibody Screen NEGATIVE Crossmatch See Detail 08/16/19 08/16/19 08/16/19 Range/Units 06:23 06:23 06:23 WBC 9.56 (4.8-10.8) K/uL RBC 3.28 L (4.2-5.4) M/uL Hgb 9.7 L (12.0-16.0) g/dL Hct 29.9 L (37-47) % MCV 91.2 (80-100) fL MCH 29.6 (25-34) pg MCHC 32.4 (32-36) g/dL RDW Std Deviation 49.3 H (36.4-46.3) fL RDW Coeff of Gary 14.7 H (11.5-14.5) % Plt Count 116 L (130-400) K/uL MPV 9.1 (7.4-10.4) fL Sodium 138 (136-145) mmol/L Potassium 3.7 (3.5-5.1) mmol/L Chloride 103 (98-107) mmol/L Carbon Dioxide 30 (21-32) mmol/L Anion Gap 5.0 (3-11) BUN 17 (7-18) mg/dl Creatinine 0.87 (0.6-1.2) mg/dl Est Cr Clr Drug Dosing 63.8 ml/min Est GFR ( Amer) 74.5 Est GFR (Non-Af Amer) 64.3 BUN/Creatinine Ratio 19.3 (10-20) Glucose 186 H (70-99) mg/dl POC Glucose (70-99) Calcium 8.5 (8.5-10.1) mg/dl Total Bilirubin 1.2 H (0.2-1) mg/dl AST 24 (15-37) U/L ALT 24 (12-78) U/L Alkaline Phosphatase 46 (45-117) U/L Total Protein 6.6 (6.4-8.2) gm/dl Albumin 3.3 L (3.4-5.0) gm/dl Globulin 3.3 (2.5-4.0) gm/dl Albumin/Globulin Ratio 1.0 (0.9-2) Blood Type Blood Type Recheck O Positive Antibody Screen Crossmatch 08/15/19 08/15/19 08/15/19 Range/Units 21:49 15:31 15:31 WBC 5.71 (4.8-10.8) K/uL RBC 3.61 L (4.2-5.4) M/uL Hgb 10.7 L (12.0-16.0) g/dL Hct 33.2 L (37-47) % MCV 92.0 (80-100) fL MCH 29.6 (25-34) pg MCHC 32.2 (32-36) g/dL RDW Std Deviation 48.9 H (36.4-46.3) fL RDW Coeff of Gary 14.5 (11.5-14.5) % Plt Count 103 L (130-400) K/uL MPV 9.5 (7.4-10.4) fL Sodium 138 (136-145) mmol/L Potassium 4.1 (3.5-5.1) mmol/L Chloride 104 (98-107) mmol/L Carbon Dioxide 31 (21-32) mmol/L Anion Gap 3.0 (3-11) BUN 16 (7-18) mg/dl Creatinine 0.88 (0.6-1.2) mg/dl Est Cr Clr Drug Dosing 60.9 ml/min Est GFR ( Amer) 73.5 Est GFR (Non-Af Amer) 63.4 BUN/Creatinine Ratio 18.2 (10-20) Glucose 129 H (70-99) mg/dl POC Glucose 174 H (70-99) Calcium 8.7 (8.5-10.1) mg/dl Total Bilirubin (0.2-1) mg/dl AST (15-37) U/L ALT (12-78) U/L Alkaline Phosphatase (45-117) U/L Total Protein (6.4-8.2) gm/dl Albumin (3.4-5.0) gm/dl Globulin (2.5-4.0) gm/dl Albumin/Globulin Ratio (0.9-2) Blood Type Blood Type Recheck Antibody Screen Crossmatch PG Care Time/CCT Total # of Minutes Spent Total Time Spent with Patient: Total time spent is greater than 50% in coordination of care (as documented) at patient's floor/unit and/or counseling patient: (1) Closed fracture of left elbow Encounter type: initial encounter Qualified Code(s): S42.402A - Unspecified fracture of lower end of left humerus, initial encounter for closed fracture (2) Closed fracture of left distal femur Encounter type: initial encounter Fracture morphology: unspecified fracture morphology Qualified Code(s): S72.402A - Unspecified fracture of lower end of left femur, initial encounter for closed fracture (3) Fall Encounter type: initial encounter Qualified Code(s): W19.XXXA - Unspecified fall, initial encounter
[2019-08-16] MEDS: BRIMONIDINE TARTRATE-P 0.15% 5 ML BTL OP SCH ×2 (11:33→21:53)
[2019-08-16] MEDS ORDERED: BACITRACIN INJ 50,000 UNIT VIAL ONE (11:57)
[2019-08-16] MEDS ORDERED: ROCURONIUM BROMIDE 10 MG/ML 5 ML VIAL ONE ×2 (12:24→13:06)
[2019-08-16] MEDS ORDERED: ALBUMIN HUMAN 5% 12.5 GM/250 ML VIAL IV ONE (12:24)
[2019-08-16] MEDS ORDERED: GLUCOSE 40% GEL 15 GM TUBE PO PRN (12:45)
[2019-08-16] MEDS ORDERED: INSULIN ASPART 100 UNITS/ML VIAL SC PRN (12:45)
[2019-08-16] MEDS ORDERED: DEXTROSE 50% 50 ML SYRINGE IV PRN (12:45)
[2019-08-16] MEDS ORDERED: GLUCAGON FOR INJ 1 MG VIAL SQ PRN (12:45)
[2019-08-16] MEDS ORDERED: CARBOHYDRATES FOR HYPOGLYCEMIA PO PRN (12:45)
[2019-08-16] MEDS ORDERED: GLUCOSE 10 TABS/TUBE PO PRN (12:45)
--- NOTE | 2019-08-16 13:31 | Post Operative Brief Note ---
Immediate Post Op Note v1 Date of Surgery August 16, 2019 Pre & Post Diagnosis Operation Date: 08/16/19 07:30 Pre-Op Diagnosis: 1. Left displaced four-part radial Head fracture dislocation and 2. Left displaced and angulated four-part supracondylar intra-articular distal Femur Fracture Post-Op Diagnosis: 1. Left displaced four-part radial Head fracture dislocation and 2. Left displaced and angulated four-part supracondylar intra-articular distal Femur Fracture I identified the patient and participated in the time-out.: Yes Procedure Operation Date: 08/16/19 07:30 Actual Procedures p Open Reduction Internal Fixation Left displaced and angulated four-part supracondylar intra-articular distal Femur Fracture(Left) - Florian Bobby DO s Open Reduction Internal Fixation Left four-part intra-articular radial Head Fracture(Left) - Florian Bobby DO Surgeon Florian Bobby DO [employer] Truck [employer] Frandy Reed PA-C Estimated Blood Loss 200 Findings Consistent with Post-Op Diagnosis Fluids 2600 crystalloid and albumin 5% 250 cc Specimens None Drains Ramirez Catheter (patient arrived to the OR with ramirez in place, anesthesia to monitor output), Hemovac Drain (10fr) and Other (Yajaira wound drain ) Anesthesia Type General Regional Complications none Disposition Accompanied Patient To Recovery: No Disposition: Recovery Room
--- NOTE | 2019-08-16 13:36 | Fluoroscopy Report ---
FL elbow LT 2V CLINICAL HISTORY: Fracture COMPARISON STUDY: 08/15/2019 FLUOROSCOPY TIME: 78 seconds. NUMBER OF FLUOROSCOPIC IMAGES: 2 FINDINGS: 2 intraoperative fluoroscopic spot images reveal internal fixated radial head fracture. IMPRESSION: Internally fixated radial head fracture. Electronically signed by: Rashel Leung M.D. 08/16/2019 1:35 PM
--- NOTE | 2019-08-16 13:37 | Fluoroscopy Report ---
FL femur LT 2V CLINICAL HISTORY: FRACTURE COMPARISON STUDY: 08/15/2019 FLUOROSCOPY TIME: 51 seconds. NUMBER OF FLUOROSCOPIC IMAGES: 3 FINDINGS: Fluoroscopic spot images reveal internal fixation of an intra-articular distal femoral frac ture. The fracture has been fixated with a lateral metallic plate and multiple transverse screws. IMPRESSION: Internally fixated distal femoral fracture Electronically signed by: Rashel Leung M.D. 08/16/2019 1:36 PM
--- NOTE | 2019-08-16 14:35 | Operative Report ---
DATE OF OPERATION: 08/16/2019 PREOPERATIVE DIAGNOSES: 1. Left displaced 4-part intraarticular radial head fracture subluxation. 2. Left displaced angulated 4-part intra-articular supracondylar distal femur fracture. POSTOPERATIVE DIAGNOSES: 1. Left displaced 4-part intraarticular radial head fracture subluxation. 2. Left displaced angulated 4-part intra-articular supracondylar distal femur fracture. PROCEDURE: 1. Open reduction internal fixation left intra-articular 4-part radial head fracture subluxation. 2. Open reduction internal fixation left displaced angulated 4-part intra-articular supracondylar distal femur fracture. SURGEON: Florian Bobby DO [employer] SYSTEMS TECHNICIAN: Frandy Reed PA-C who was present for patient positioning, sterile prep and drape, management of retractors and instruments. He was present through the critical portions of the case including wound closure, application of sterile dressing and transport of the patient to recovery. ANESTHESIA: General regional left upper extremity. General regional left lower extremity. SPECIMENS: None. DRAINS: Hemovac x1 and a Prevena wound drain. COMPLICATIONS: None. BLOOD LOSS: 200 mL. PERTINENT HISTORY: This is a 79-year-old woman who has sustained a trip and fall while at home. She landed on her left elbow and her left knee. She had pain and inability to ambulate. She was then transferred to [facility] by EMS. She was seen and evaluated in the Emergency Department and noted to have the above noted injuries and was then admitted to the hospital for care and management. Surgical optimization and scheduling for surgery as indicated. All potential risks, benefits, complications, alternatives, rehab, potential for incomplete relief of symptoms, need for further surgery, DVT, PE, , persistent pain, swelling, scarring, weakness, neurovascular injury, wound complications, hardware failure, nonunion, malunion, bone fracture were discussed with the patient. The patient decided to proceed with the procedure as indicated. The patient had a regional block for the left upper extremity and left lower extremity performed in the preop holding area, taken to the operative suite, placed supine on the operating room table. I reviewed consent and identification of proper operative site, the patient was anesthetized and endotracheal tube was placed. The left upper extremity was then addressed first. Left upper extremity had a tourniquet applied high in the axilla. Left upper extremity was then sterilely prepped and draped in usual fashion. Left upper extremity was then elevated and exsanguinated with an Esmarch bandage after surgical timeout was performed. After sterile prep and drape was performed, the #15 blade scalpel was used to make an incision obliquely extending from the lateral epicondyle extending over the radial head and neck. The incision was deepened through subcutaneous tissue with a #15 blade scalpel. Meticulous hemostasis was achieved with electrocautery. Baldev rakes and then ultimately a Weitlaner was applied in the surgical incision. The fascia was incised in line with skin incision. Next, the extensors were sharply elevated anteriorly with a #15 blade scalpel and then subsequently by electrocautery. The radiocapitellar joint was identified and this was then opened with a #15 blade scalpel, was noted to be a fairly significant effusion within the joint which was then lavaged with sterile saline and suctioned dry. The head fragments were flipped and rotated 90-180 degrees from the anatomical location. Intra-articular 4-part fracture is noted of the head; however, decision was made for open reduction internal fixation due to the large size of the 4-part fragments. Next, using a dental pick, the fractures were then rotated and placed back in anatomic position. This was then held in place using four 1.0 mm guide pins placed under live fluoroscopic assistance into the radial head to stabilize the head fragment. Appropriate rotation was noted and then the head fragment was then pinned to the shaft with multiple 1.0 mm K wires. Next, multiple 1.5 mm screws were placed in the radial head fragments to stabilize them and this was then stabilized to a 2.0 mm Synthes modular handset plate placed in the lateral safe zone of the proximal radius placed in live fluoroscopic assistance. This produced near anatomic reduction and fixation of the left proximal radial head fracture. The subluxed radiocapitellar joint and the subluxed olecranon was then reduced and irrigated with copious amounts of sterile normal saline. Deep capsular tissue was then closed using #1 Vicryl. Rotation was unimpeded. Full flexion, full extension, full supination and pronation were noted after the capsule was closed. There is no clicking, catching or crepitation noted. Direct visualization of the screws were noted to not be in the joint. All heads were countersunk and the Synthes plate was in the safe zone of the radius. Next, extensor origin was then reapproximated with interrupted #1 Vicryl sutures. The fascia was closed using #1 Vicryl. The dermis was then closed using buried interrupted 2-0 Vicryl and then irrigated with sterile normal saline until clear followed by closure of the skin with buried 4-0 Monocryl in the subcuticular layer, followed by use of Dermabond. Next, a sterile compressive dressing was applied and wrapped in Abebe wrap. The left upper extremity tourniquet was released and the patient was then placed in a sling. Fingers were pink and warm. Next, after sterile dressing was applied, then the left upper extremity draping was attention then directed toward the left distal femur. There is no ability to use tourniquet, therefore left lower extremity was then sterilely prepped and draped in usual fashion, elevated and placed on bumps. Next, after sterile field was established, surgical timeout was performed and then a #10 blade scalpel was used to make an incision centered over Gerdy's tubercle extending proximally on the lateral aspect of the femur to approximately mid shaft. The incision was deepened through subcutaneous tissue. Meticulous hemostasis was achieved with electrocautery. Skin rakes were applied. The fascia was then incised along the skin incision with electrocautery followed by identification of the iliotibial band was then split centered over the lateral aspect of the femur. It was retracted with Pati retractors and the vastus lateralis was identified. The interval between the anterior and posterior compartments was identified. This was sharply elevated with electrocautery, cauterizing any deep crossing veins. Next, a Hohmann was placed under the vastus over the top of the distal femur and the stable portion just proximal femur fracture. Next, the lateral collateral ligaments were sharply incised with electrocautery down to the level of the lateral aspect of the distal femur. Large hemarthrosis was encountered. This was evacuated and irrigated with sterile normal saline and pulsatile lavage, copious amounts until clear. The fracture was then badly displaced and before prior intra-articular. At this point, the patient had intravenous paralytics and this allowed relaxation of the muscular tone of the left lower extremity allowed traction to produce a near anatomic reduction. Next, the Synthes locking periarticular supracondylar femoral flip plate was then provisionally fixated to the midshaft to the femur and then the large reduction forceps were then placed across the knee joint under the vastus and the extensor producing reduction and near anatomic fixation. Next, the provisional fixation was then performed using multiple guide pins through the lateral aspect of the femur using traction and reduction using a large pelvic reduction forceps. Once this was achieved, then a single nonlocking screw was placed in center hole on the distal femur. This was used as a sequential lever to reduce the fracture into near anatomic position under live fluoroscopic assistance, then multiple locking screws were placed around the nonlocking screw. Nonlocking screw was then switched to a locking screw. Next, multiple locking screws were placed in the shaft of the femur under live fluoroscopic assistance. Near anatomic reduction and fixation was achieved in stable fashion. Pulsatile lavage was then used to cleanse the deep soft tissue and periosteum and bone. Next, a 10-Bulgarian single lumen Hemovac drain was placed deep followed by reduction of the vastus lateralis and then closure of the periarticular ligaments lateral aspect of the knee with #1 Vicryl sutures. Next, the iliotibial band was then closed using interrupted #1 Vicryl sutures. Next, the dermis was closed using buried interrupted 2-0 Vicryl and skin was then closed using multiple skin for skin paresh. Next, a Prevena wound VAC was applied. Range of motion was performed and noted to be 0-115 degrees of flexion without any crepitation and catching, locking, popping or instability. Final radiographs were obtained noting near anatomic reduction and fixation. After sterile compressive dressing was applied to the left lower extremity including an Abebe wrap, the patient was awakened and taken to recovery in stable condition. I attest to the content of the Intraoperative Record and any orders documented therein. Any exception s are noted below.
[2019-08-16 15:04] LABS: Hematocrit (blood only) 28.5 % (37-47); Hemoglobin 9.2 g/dL (12.0-16.0); Mean Corpuscular Volume 92.8 fL (80-100); Mean Platelet Volume 9.8 fL (7.4-10.4); Platelet Count 154 K/uL (130-400); RDW Coefficient of Variation 14.9 % (11.5-14.5); RDW Standard Deviation 50.9 fL (36.4-46.3); Red Blood Count 3.07 M/uL (4.2-5.4); White Blood Count 18.31 K/uL (4.8-10.8)
[2019-08-16 15:13] LABS: Mean Corpuscular Hgb Conc 32.3 g/dL (32-36)
[2019-08-16] MEDS ORDERED: LABETALOL HCL IV 5 MG/ML 20ML IV STA (15:32)
[2019-08-16] MEDS ORDERED: LABETALOL HCL IV 5 MG/ML 20ML IV ONE (15:35)
--- NOTE | 2019-08-16 15:59 | Anesthesiology Progress Note ---
Date of Service August 16, 2019 Anesthesia Post Procedure Vital Signs Vital Signs: Temp Pulse Pulse Resp BP BP Pulse Ox 08/16/19 15:45 98.4 F 102 H 14 106/58 L 95 08/16/19 15:35 102 H 12 100/57 L 95 08/16/19 15:25 135 H 20 119/51 L 94 08/16/19 15:15 132 H 22 93/69 L 92 08/16/19 15:05 134 H 14 111/71 94 08/16/19 14:55 136 H 13 130/65 93 08/16/19 14:45 134 H 14 129/85 93 08/16/19 14:35 132 H 10 L 114/73 95 08/16/19 14:25 139 H 12 152/84 H 95 08/16/19 14:15 136 H 19 140/74 95 08/16/19 14:05 138 H 13 138/62 96 08/16/19 13:55 116 H 14 143/64 H 96 08/16/19 13:48 97.9 F 120 H 16 135/76 96 08/16/19 07:00 109 H 08/16/19 03:49 98.6 F 112 H 19 126/81 95 08/16/19 01:01 109 H 18 93 08/16/19 00:48 101 H 08/15/19 23:29 99.3 F 101 H 18 154/73 H 94 08/15/19 22:54 100 H 18 136/71 97 08/15/19 22:30 95 H 24 136/71 94 08/15/19 22:20 99 H 18 96 08/15/19 22:10 99 H 18 96 08/15/19 22:00 100 H 19 130/69 96 08/15/19 21:50 98 H 22 97 08/15/19 21:40 101 H 18 94 08/15/19 21:30 101 H 17 160/87 H 97 08/15/19 21:20 100 H 15 96 08/15/19 21:10 101 H 14 95 08/15/19 21:00 96 H 25 H 154/113 H 96 08/15/19 20:50 97 H 20 96 08/15/19 20:40 96 H 18 96 08/15/19 20:30 94 H 16 166/85 H 95 08/15/19 20:20 95 H 17 96 08/15/19 20:14 93 H 28 H 157/81 H 96 08/15/19 20:10 97 H 16 94 08/15/19 20:00 96 H 19 157/81 H 95 08/15/19 19:50 95 H 17 95 08/15/19 19:40 94 H 25 H 95 08/15/19 19:30 93 H 16 145/73 H 95 08/15/19 19:25 94 H 14 129/68 96 08/15/19 19:24 96 H 19 129/68 96 08/15/19 19:20 89 16 96 08/15/19 19:10 89 14 96 08/15/19 19:01 89 14 95 08/15/19 19:00 92 H 16 95 08/15/19 18:50 90 9 L 96 08/15/19 18:40 89 12 96 08/15/19 18:31 87 16 176/90 H 95 08/15/19 18:30 90 18 95 08/15/19 18:20 88 14 96 08/15/19 18:10 85 18 96 08/15/19 18:06 89 20 150/73 H 96 08/15/19 18:00 82 88 18 144/80 H 144/80 H 95 08/15/19 17:50 85 18 96 08/15/19 17:40 88 19 97 08/15/19 17:30 90 15 153/82 H 96 08/15/19 17:20 91 H 24 96 08/15/19 17:10 91 H 13 95 08/15/19 17:00 86 85 18 150/73 H 150/73 H 96 08/15/19 16:50 89 14 97 08/15/19 16:40 88 17 96 08/15/19 16:30 90 19 149/82 H 95 08/15/19 16:20 91 H 18 96 08/15/19 16:10 90 20 96 08/15/19 16:00 89 15 150/73 H 96 Pain Intensity Left Knee: Pain Intensity: 7 Left Leg: Pain Intensity: 6 Transfer of Care Handoff Completed per policy Notes Mental Status: alert / awake / arousable and participated in evaluation Patient Amnestic to Procedure: Yes Nausea / Vomiting: adequately controlled Pain: adequately controlled Airway Patency, RR, SpO2: stable & adequate BP & HR: stable & adequate Hydration State: stable & adequate Anesthetic Complications: no major complications apparent and Pt Satisfied with anesthetic care
[2019-08-16] MEDS: PANTOprazole 40 MG TAB PO SCH (16:43)
[2019-08-16] MEDS: METOPROLOL SUCC 25MG EXT REL TAB PO SCH (16:43)
[2019-08-16] MEDS: ATORVASTATIN 10 MG TAB PO SCH (16:43)
[2019-08-16] MEDS: ESCITALOPRAM OXALATE 10 MG TAB PO SCH (16:43)
[2019-08-16] MEDS: MIRABEGRON ER 25 MG TAB PO SCH (16:43)
[2019-08-16] MEDS: LATANOPROST 0.005% OP SOLN 2.5 ML BTL OPB SCH (16:44)
[2019-08-16] MEDS: NovoLOG INSULIN PUMP SCH ×3 (16:44→21:53)
[2019-08-16] MEDS: CEFAZOLIN 2000MG 2,000 MG/15 ML SYR IV SCH ×2 (17:06→23:11)
[2019-08-16] MEDS ORDERED: OXYCODONE/ACETAMINOPHEN 5mg/325mg TAB PO STA (21:34)
[2019-08-17] MEDS: ACETAMINOPHEN 1,000 MG/100 ML VIAL IV SCH ×2 (01:03→10:52)
[2019-08-17] MEDS ORDERED: OXYCODONE/ACETAMINOPHEN 5mg/325mg TAB PO STA ×2 (06:15→16:52)
[2019-08-17 07:22] LABS: BUN Creatinine Ratio 16.7 (10-20); Calcium 8.7 mg/dl (8.5-10.1); Creatinine Clr Calc Pharmacy 62.3 ml/min; Est GFR (African American) 72.5; Est GFR (Non-African American) 62.5; Potassium 3.7 mmol/L (3.5-5.1)
[2019-08-17 07:27] LABS: Hematocrit (blood only) 19.3 % (37-47); Hemoglobin 6.5 g/dL (12.0-16.0); Mean Corpuscular Hemoglobin 30.7 pg (25-34); Mean Corpuscular Hgb Conc 33.7 g/dL (32-36); RDW Coefficient of Variation 15.2 % (11.5-14.5); RDW Standard Deviation 50.6 fL (36.4-46.3); Red Blood Count 2.12 M/uL (4.2-5.4); White Blood Count 7.82 K/uL (4.8-10.8)
[2019-08-17 07:29] LABS: Platelet Count 96 K/uL (130-400); Platelet Estimate Decreased (Normal)
--- NOTE | 2019-08-17 08:11 | Anesthesiology Progress Note ---
Date of Service August 17, 2019 Anesthesia Post Procedure Vital Signs Vital Signs: Temp Pulse Pulse Resp BP Pulse Ox 08/17/19 07:07 36.9 C 120 H 20 112/62 93 08/17/19 03:30 37.1 C 122 H 20 137/67 95 08/17/19 00:13 37.5 C 127 H 24 97/58 L 93 08/17/19 00:00 118 H 127/73 08/16/19 22:01 120 H 16 95 08/16/19 22:00 123 H 08/16/19 19:39 37.1 C 119 H 21 120/53 L 91 08/16/19 18:26 37.7 C H 08/16/19 18:00 37.3 C 108 H 18 115/58 L 97 08/16/19 17:30 37.9 C H 112 H 20 104/55 L 97 08/16/19 17:00 38.0 C H 112 H 18 109/55 L 96 08/16/19 16:16 38.0 C H 103 H 20 113/59 L 96 08/16/19 15:45 36.9 C 102 H 14 106/58 L 95 08/16/19 15:35 102 H 12 100/57 L 95 08/16/19 15:25 135 H 20 119/51 L 94 08/16/19 15:15 132 H 22 93/69 L 92 08/16/19 15:05 134 H 14 111/71 94 08/16/19 14:55 136 H 13 130/65 93 08/16/19 14:45 134 H 14 129/85 93 08/16/19 14:35 132 H 10 L 114/73 95 08/16/19 14:25 139 H 12 152/84 H 95 08/16/19 14:15 136 H 19 140/74 95 08/16/19 14:05 138 H 13 138/62 96 08/16/19 13:55 116 H 14 143/64 H 96 08/16/19 13:48 36.6 C 120 H 16 135/76 96 Pain Intensity Left Knee: Pain Intensity: 7 Left Leg: Pain Intensity: 0 Left Arm: Pain Intensity: 5 (complains of pins and needles sensation; pt educated on nerve block; ) Notes Mental Status: alert / awake / arousable Patient Amnestic to Procedure: Yes Nausea / Vomiting: adequately controlled Pain: improving with treatment Airway Patency, RR, SpO2: stable & adequate BP & HR: stable & adequate Hydration State: stable & adequate Anesthetic Complications: no major complications apparent
[2019-08-17] MEDS ORDERED: SODIUM CHLORIDE 0.9% 250 ML IV PRN ×2 (08:26→08:29)
[2019-08-17] MEDS: NovoLOG INSULIN PUMP SCH ×4 (08:36→21:25)
[2019-08-17] MEDS: CEFAZOLIN 2000MG 2,000 MG/15 ML SYR IV SCH (08:37)
[2019-08-17] MEDS: BRIMONIDINE TARTRATE-P 0.15% 5 ML BTL OP SCH ×2 (08:38→21:37)
[2019-08-17] MEDS: ESCITALOPRAM OXALATE 10 MG TAB PO SCH (08:39)
[2019-08-17] MEDS: MIRABEGRON ER 25 MG TAB PO SCH (08:39)
[2019-08-17] MEDS: PANTOprazole 40 MG TAB PO SCH (08:40)
[2019-08-17] MEDS: METOPROLOL SUCC 25MG EXT REL TAB PO SCH (08:40)
[2019-08-17] MEDS: LATANOPROST 0.005% OP SOLN 2.5 ML BTL OPB SCH ×2 (08:40→21:37)
--- NOTE | 2019-08-17 08:40 | Orthopedic Progress Note ---
Date of Service August 17, 2019 Assessment & Plan (1) Closed fracture of left distal femur: Postop day 1 status post ORIF left distal femur fracture She will have to maintain nonweightbearing status. With her ORIF of her left radial head, platform walker will likely not be used. She will likely need to be bed to chair or bed to wheelchair for some time. Acute blood loss anemia -hemoglobin was down to 6.5 this morning likely attributed to her lightheadedness. 2 units PRBCs will be transfused. Continue DVT prophylaxis Continue current pain management regimen. (2) Closed fracture of left elbow: Maintain current splint and continue to use sling. Elevate on one pillow as able. Subjective Postop day 1 status post ORIF left radial head and ORIF left distal femur fracture Patient is currently sitting up in bed. She is awake and alert. She is eating her breakfast. She states that she is having some lightheadedness this morning. She has no other complaints. Pain is controlled. She denies any shortness of breath or chest pain. Physical Exam Physical Exam: Splint/dressing is clean dry and intact on the left upper extremity. Left fingers are swollen slightly but have good range of motion and good sensation. Capillary refill is less than 2 seconds. Immobilizer noted on the left knee. Current dressing on the left lower extremity appears clean, dry, and intact. Calves are soft and nontender. Neurovascular is intact. Toes are mobile. Results & Data Vital Signs (Past 12 Hours) Vital Signs Temp Pulse Pulse Resp BP Pulse Ox 08/17/19 07:07 36.9 C 120 H 20 112/62 93 08/17/19 03:30 37.1 C 122 H 20 137/67 95 08/17/19 00:13 37.5 C 127 H 24 97/58 L 93 08/17/19 00:00 118 H 127/73 08/16/19 22:01 120 H 16 95 08/16/19 22:00 123 H (1) Closed fracture of left distal femur Encounter type: initial encounter Fracture morphology: unspecified fracture morphology Qualified Code(s): S72.402A - Unspecified fracture of lower end of left femur, initial encounter for closed fracture (2) Closed fracture of left elbow Encounter type: initial encounter Qualified Code(s): S42.402A - Unspecified fracture of lower end of left humerus, initial encounter for closed fracture
[2019-08-17] MEDS ORDERED: IRON SUCROSE 100 MG in 0.9 % SODIUM CHLORIDE 100 ML IV SCH (09:00)
[2019-08-17] MEDS: OXYCODONE/ACETAMINOPHEN 5mg/325mg TAB PO PRN ×2 (10:53→14:29)
[2019-08-17] MEDS: OXYCODONE HCL IR 5 MG TAB (IMMEDIATE RELEASE) PO PRN ×2 (18:31→22:42)
[2019-08-17] MEDS: ACETAMINOPHEN SOL 650 MG/20.3 ML UDC PO SCH (18:51)
[2019-08-17] MEDS ORDERED: ACETAMINOPHEN SUSP 160 MG/5 ML UDC PO STA (19:40)
--- NOTE | 2019-08-17 19:48 | Hospitalist Progress Note ---
Date of Service August 17, 2019 Assessment & Plan (1) Closed fracture of left distal femur: -Now postop, titrate pain control, PT/OT eval and treat, work on SNF placement for rehab once she has good pain control with activity. (2) Closed fracture of left elbow: -Same as abovepostop, titrating pain control. (3) Effusion of knee joint, left: - In setting of fall/acute fracture. (4) Fall: - Likely mechanical fall; no indication for cardiac work up. -Ongoing PT/OT eval and treat. (5) Diabetes mellitus: - Most recent A1C was 5.1 in Jul 2019. - Pt. has insulin pump -- can continue to use as inpatient. Sugars overall on the slightly high side of reasonable, continue to allow patient to titrate. (6) HLD (hyperlipidemia): - Continue statin (7) HTN (hypertension): -Blood pressure showing reasonable control, continue current (8) Depression: - Continue Lexapro as prescribed. (9) Right bundle branch block: - H/o RBBB; Pre-op EKG showed known RBBB, otherwise negative. - Follows annually with Dr. Israel. (10) Anemia: -Acute blood loss from femur and radius fracturesrequired transfusion. C linically appears stable, await follow-up CBC. Iron deficiency relates to her malabsorption syndromes, gave a dose of Venofer and she tolerated it well, noted that she used to not be able to tolerate iron dextran, but was pleased that she could tolerate the Venoferwill probably need to have ongoing doses as an outpatient (11) DVT prophylaxis: - SCDs; hold pharmacologic ppx for procedure. Dispo: Med/surg with tele (due to h/o V. tach); plan for orthopedic intervention today. (12) Osteoporosis: Given the rather significant trauma from what appeared to be a moderate at worst mechanical fall, I harbor grave concerns about the status of her bone health. She is following actively with endocrinology who has been managing things aggressively, discussed with her that anticipate the need to escalate treatment further to something such as Prolia or Forteo, will obviously defer to endocrine in this regard, but will definitely want to ensure she has close endocrine follow-up after discharge. Subjective Pain under better control with oxycodone. Still hurts a lot to move. Has not been out of bed yet. She has been following actively with endocrinology for osteoporosis for years, notes that she was on Fosamax, had a Fosamax holiday, her bone density was found to worsen, and so she was given a dose of Reclast. Otherwise she is also on calcium and vitamin D. 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 No other acute complaints Review of Systems Review of Systems: All systems reviewed & are unremarkable except as noted in HPI & below Physical Exam Physical Exam: General she is awake and alert pleasant no distress. HEENT normocephalic atraumatic mucous membranes moist. Breathing is unlabored no accessory muscle use good effort. Left arm and left leg are both splinted/slung and wrapped. Skin shows no rashes no pallor or icterus. Neuro shows no focal deficits. Results & Data Vital Signs (Past 12 Hours) Vital Signs Temp Pulse Pulse Resp BP BP Pulse Ox 08/17/19 19:25 100.0 F H 102 H 20 107/54 L 96 08/17/19 16:45 116 H 08/17/19 15:24 98.8 F 110 H 18 131/62 95 08/17/19 14:15 100.2 F H 110 H 18 146/67 H 08/17/19 13:15 100.0 F H 110 H 18 124/58 L 92 08/17/19 12:45 100.4 F H 120 H 20 136/68 08/17/19 12:37 122 H 08/17/19 12:30 100.4 F H 119 H 20 147/69 H 08/17/19 12:15 98.4 F 119 H 20 121/78 95 08/17/19 11:32 98.8 F 117 H 16 110/66 96 08/17/19 09:28 99.1 F 117 H 20 110/66 96 08/17/19 09:13 99.3 F 120 H 16 113/64 95 08/17/19 09:12 120 H 16 112/60 95 08/17/19 08:55 97.9 F 129 H 20 121/63 95 PG Care Time/CCT Total # of Minutes Spent Total Time Spent with Patient: Total time spent is greater than 50% in coordination of care (as documented) at patient's floor/unit and/or counseling patient: (1) Closed fracture of left distal femur Encounter type: initial encounter Fracture morphology: unspecified fracture morphology Qualified Code(s): S72.402A - Unspecified fracture of lower end of left femur, initial encounter for closed fracture (2) Closed fracture of left elbow Encounter type: initial encounter Qualified Code(s): S42.402A - Unspecified fracture of lower end of left humerus, initial encounter for closed fracture (3) Fall Encounter type: initial encounter Qualified Code(s): W19.XXXA - Unspecified fall, initial encounter
[2019-08-17] MEDS ORDERED: ACETAMINOPHEN SOL 650 MG/20.3 ML UDC PO ONE (20:15)
[2019-08-18] MEDS ORDERED: OXYCODONE/ACETAMINOPHEN 5mg/325mg TAB PO STA (01:15)
[2019-08-18] MEDS: ACETAMINOPHEN SOL 650 MG/20.3 ML UDC PO SCH ×4 (01:25→18:53)
[2019-08-18] MEDS: OXYCODONE HCL IR 5 MG TAB (IMMEDIATE RELEASE) PO PRN (06:24)
[2019-08-18 07:33] LABS: Basophils # (auto) 0.01 K/uL (0-0.2); Basophils % (auto) 0.1 %; Eosinophils # (auto) 0.03 K/uL (0-0.5); Eosinophils % (auto) 0.4 %; Hematocrit (blood only) 23.2 % (37-47); Hemoglobin 7.7 g/dL (12.0-16.0); Immature Granulocytes # (auto) 0.03 K/uL (0.00-0.02); Immature Granulocytes % (auto) 0.4 %; Lymphocytes # (auto) 0.76 K/uL (1.2-3.4); Lymphocytes % (auto) 9.6 %; Mean Corpuscular Hemoglobin 30.7 pg (25-34); Mean Corpuscular Hgb Conc 33.2 g/dL (32-36); Mean Corpuscular Volume 92.4 fL (80-100); Mean Platelet Volume 9.6 fL (7.4-10.4); Monocytes % (auto) 6.3 %; Neutrophils # (auto) 6.61 K/uL (1.4-6.5); Neutrophils % (auto) 83.2 %; Platelet Count 101 K/uL (130-400); RDW Coefficient of Variation 14.9 % (11.5-14.5); RDW Standard Deviation 50.5 fL (36.4-46.3); Red Blood Count 2.51 M/uL (4.2-5.4); White Blood Count 7.94 K/uL (4.8-10.8)
[2019-08-18 07:53] LABS: RBC Morphology Unremarkable
[2019-08-18] MEDS ORDERED: POLYETHYLENE (MIRALAX) 17 GM PACK PO PRN (08:38)
[2019-08-18] MEDS: NovoLOG INSULIN PUMP SCH ×4 (09:05→21:53)
[2019-08-18] MEDS: ATORVASTATIN 10 MG TAB PO SCH (09:06)
[2019-08-18] MEDS: METOPROLOL SUCC 25MG EXT REL TAB PO SCH (09:06)
[2019-08-18] MEDS: MIRABEGRON ER 25 MG TAB PO SCH (09:07)
[2019-08-18] MEDS: PANTOprazole 40 MG TAB PO SCH (09:07)
[2019-08-18] MEDS: ESCITALOPRAM OXALATE 10 MG TAB PO SCH (09:07)
[2019-08-18] MEDS: BRIMONIDINE TARTRATE-P 0.15% 5 ML BTL OP SCH ×2 (09:11→21:59)
[2019-08-18] MEDS: DOCUSATE SODIUM 100 MG CAP PO SCH ×2 (09:12→21:23)
[2019-08-18] MEDS ORDERED: DOCUSATE SODIUM 100 MG CAP ONE (09:15)
[2019-08-18] MEDS: cefTRIAXone SODIUM 2,000 MG in DEXTROSE 5% 50 ML IV SCH (12:28)
[2019-08-18] MEDS: IBUPROFEN 600 MG TAB PO PRN ×2 (12:36→19:53)
--- NOTE | 2019-08-18 13:30 | XRay Report ---
XR chest 2V PA/lateral CLINICAL HISTORY: fever, cough ? Infiltrate COMPARISON STUDY: 10/31/2017 FINDINGS: The heart is normal in size. There is elevation/eventration right hemidiaphragm with associ ated right basilar airspace opacities, atelectasis versus infectious/inflammatory. There are no pleur al effusions. There is no failure.[ IMPRESSION: 1. Elevation/eventration right hemidiaphragm with associated right basilar airspace opacities, atelec tatic versus infectious/inflammatory Electronically signed by: Rashel Leung M.D. 08/18/2019 1:29 PM
--- NOTE | 2019-08-18 14:13 | Orthopedic Progress Note ---
Date of Service August 18, 2019 Assessment & Plan (1) Closed fracture of left distal femur: Postop day 2 status post ORIF left distal femur fracture She will have to maintain nonweightbearing status. With her ORIF of her left radial head, platform walker will likely not be used unless she can learn to rest the arm only on the platform without putting weight on it. She will likely need to be bed to chair or bed to wheelchair for some time. Can have the immobilizer loosened while in bed for a short while daily. NO ROM of the knee. Must have it on while sleeping or getting OOB. Acute blood loss anemia -hemoglobin was down to 7.7 after 2 units PRBCs will be transfused. Continue DVT prophylaxis Continue current pain management regimen. (2) Closed fracture of left elbow: Maintain current splint and continue to use sling. Elevate on one pillow as able. Subjective Pt sitting up in bed. Awake, alert. Pain controlled presently. States it's difficult to get OOB. Planning for SNF upon dc. No new complaints. Overall, she still feels tired. Question of early pneumonia per patient? Hgb up to 7.7 after transfusion. Physical Exam Physical Exam: Immobilizer opened up. Dressings removed from the LLE. Drain removed. Prevena wound vac intact. No drainage in canister. No erythema around the dressing. Knee swollen but soft. Dressing placed over drain site. Calves soft, NT. NV intact. Splint/dressing LUE wnl. Fingers with less swelling today. Moving fingers well. Sensation intact. Cap refill < 2 seconds. Results & Data Vital Signs (Past 12 Hours) Vital Signs Temp Pulse Resp BP Pulse Ox Pulse Ox 08/18/19 11:54 37.2 C 104 H 18 125/65 93 08/18/19 09:45 90 08/18/19 07:10 38.3 C H 117 H 18 110/55 L 91 08/18/19 03:51 37 C 84 18 122/64 94 Laboratory Results Laboratory Results WBC 7.94 K/uL (4.8-10.8) 08/18/19 07:18 RBC 2.51 M/uL (4.2-5.4) L 08/18/19 07:18 Hgb 7.7 g/dL (12.0-16.0) L 08/18/19 07:18 Hct 23.2 % (37-47) L 08/18/19 07:18 MCV 92.4 fL (80-100) 08/18/19 07:18 MCH 30.7 pg (25-34) 08/18/19 07:18 MCHC 33.2 g/dL (32-36) 08/18/19 07:18 RDW Std Deviation 50.5 fL (36.4-46.3) H 08/18/19 07:18 RDW Coeff of [place] 14.9 % (11.5-14.5) H 08/18/19 07:18 Plt Count 101 K/uL (130-400) L 08/18/19 07:18 MPV 9.6 fL (7.4-10.4) 08/18/19 07:18 Immature Gran % (Auto) 0.4 % 08/18/19 07:18 Neut % (Auto) 83.2 % 08/18/19 07:18 Lymph % (Auto) 9.6 % 08/18/19 07:18 [place] % (Auto) 6.3 % 08/18/19 07:18 Eos % (Auto) 0.4 % 08/18/19 07:18 Baso % (Auto) 0.1 % 08/18/19 07:18 Immature Gran # (Auto) 0.03 K/uL (0.00-0.02) H 08/18/19 07:18 Neut # (Auto) 6.61 K/uL (1.4-6.5) H 08/18/19 07:18 Lymph # (Auto) 0.76 K/uL (1.2-3.4) L 08/18/19 07:18 [place] # (Auto) 0.50 K/uL (0.11-0.59) 08/18/19 07:18 Eos # (Auto) 0.03 K/uL (0-0.5) 08/18/19 07:18 Baso # (Auto) 0.01 K/uL (0-0.2) 08/18/19 07:18 Platelet Estimate Decreased (Normal) L 08/17/19 06:16 RBC Morphology Unremarkable 08/18/19 07:18 Sodium 136 mmol/L (136-145) 08/17/19 06:16 Potassium 3.7 mmol/L (3.5-5.1) 08/17/19 06:16 Chloride 101 mmol/L (98-107) 08/17/19 06:16 Carbon Dioxide 31 mmol/L (21-32) 08/17/19 06:16 Anion Gap 4.0 (3-11) 08/17/19 06:16 BUN 15 mg/dl (7-18) 08/17/19 06:16 Creatinine 0.89 mg/dl (0.6-1.2) 08/17/19 06:16 Est Cr Clr Drug Dosing 62.3 ml/min 08/17/19 06:16 Est GFR ( Amer) 72.5 08/17/19 06:16 Est GFR (Non-Af Amer) 62.5 08/17/19 06:16 BUN/Creatinine Ratio 16.7 (10-20) 08/17/19 06:16 Glucose 170 mg/dl (70-99) H 08/17/19 06:16 POC Glucose 188 (70-99) H 08/18/19 11:47 Calcium 8.7 mg/dl (8.5-10.1) 08/17/19 06:16 Iron 17 mcg/dl (35-150) L 08/17/19 06:16 TIBC 163 mcg/dl (250-450) L 08/17/19 06:16 Transferrin 132 mg/dl (200-360) L 08/17/19 06:16 Transferrin % Sat 9 % (15-50) L 08/17/19 06:16 Ferritin 138.0 ng/ml (8-388) 08/17/19 06:16 Total Bilirubin 1.2 mg/dl (0.2-1) H 08/16/19 06:23 AST 24 U/L (15-37) 08/16/19 06:23 ALT 24 U/L (12-78) 08/16/19 06:23 Alkaline Phosphatase 46 U/L (45-117) 08/16/19 06:23 C-Reactive Protein 18.80 mg/dl (0-0.29) H 08/18/19 09:13 Total Protein 6.6 gm/dl (6.4-8.2) 08/16/19 06:23 Albumin 3.3 gm/dl (3.4-5.0) L 08/16/19 06:23 Globulin 3.3 gm/dl (2.5-4.0) 08/16/19 06:23 Albumin/Globulin Ratio 1.0 (0.9-2) 08/16/19 06:23 Procalcitonin 0.79 ng/ml (0-0.5) H 08/18/19 09:13 Blood Type O Positive 08/16/19 08:02 Blood Type Recheck O Positive 08/16/19 06:23 Antibody Screen NEGATIVE 08/16/19 08:02 Crossmatch See Detail 08/16/19 08:02 (1) Closed fracture of left distal femur Encounter type: initial encounter Fracture morphology: unspecified fracture morphology Qualified Code(s): S72.402A - Unspecified fracture of lower end of left femur, initial encounter for closed fracture (2) Closed fracture of left elbow Encounter type: initial encounter Qualified Code(s): S42.402A - Unspecified fracture of lower end of left humerus, initial encounter for closed fracture
[2019-08-18 18:34] LABS: Appearance Urine Clear (Clear); Bacteria Urine Automated Negative (Negative); Bilirubin Urine Negative (Negative); Blood Urine 2+ (Negative); Cast Urine Automated 0 /lpf (0-5); Color Urine Yellow; Glucose Urine UA Negative (Negative); Ketones Urine Negative (Negative); Leukocyte Esterase Urine Negative (Negative); Nitrite Urine Negative (Negative); Protein Urine Trace (Negative); RBC Urine Automated 0-4 /hpf (0-4); Specific Gravity Urine 1.012 (1.000-1.030); Urobilinogen Urine Negative (Negative); pH Urine 6.5 (4.5-7.5)
--- NOTE | 2019-08-18 19:39 | Hospitalist Progress Note ---
Date of Service August 18, 2019 Assessment & Plan (1) Closed fracture of left distal femur: -Now postop, pain control seems more reasonable, continue to titrate. PT/OT ongoing eval and treat. SNF/rehab after discharge (2) Closed fracture of left elbow: -Same as above (3) Healthcare-associated pneumonia: Newly developed fever, upper respiratory symptoms a little bit of lung findings on exam suspicious chest x-ray and elevated CRP/procalcitonin. MRSA nares negative, no need for MRSA coverage. Started empiric ceftriaxone, as other than being in the hospital and a well-controlled diabetic, she seems to be fairly low risk for Pseudomonas. Follow closely. (4) Fall: - Likely mechanical fall; no indication for cardiac work up. -Ongoing PT/OT eval and treat. (5) Osteoporosis: Given the rather significant trauma from what appeared to be a moderate at worst mechanical fall, I harbor grave concerns about the status of her bone health. She is following actively with endocrinology who has been managing things aggressively, discussed with her that anticipate the need to escalate treatment further to something such as Prolia or Forteo, will obviously defer to endocrine in this regard, but will definitely want to ensure she has close endocrine follow-up after discharge. (6) Effusion of knee joint, left: - In setting of fall/acute fracture. (7) Anemia: -Acute blood loss from femur and radius fracturesrequired transfusion. Improved after transfusion of 2 red cells, continue to follow. Continue to follow CBC. 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 (8) Diabetes mellitus: - Most recent A1C was 5.1 in Jul 2019. -Using her own insulin pump, sugars are under reasonable control overall, continue current care. (9) HLD (hyperlipidemia): - Continue statin (10) HTN (hypertension): -Blood pressure control adequate, continue current. (11) Depression: - Continue Lexapro as prescribed. (12) Right bundle branch block: - H/o RBBB; Pre-op EKG showed known RBBB, otherwise negative. - Follows annually with Dr. Israel (cardiology in [place]). (13) DVT prophylaxis: - SCDs; hold pharmacologic ppx for procedure. Dispo: Stable for MedSurg, once pain control with mobility is better, and once pneumonia is improving, then we can start to look towards SNF with a rehab emphasis. Subjective [place] feverish, feels warm and then cold. Has a sore throat. Ongoing pain with fractures, but did try to get up, she noted it did not go well but she appreciated the efforts. Later revisited and updated on work-up thus far for fevers. Review of Systems Review of Systems: All systems reviewed & are unremarkable except as noted in HPI & below Physical Exam Physical Exam: General she is awake and alert pleasant no distress. HEENT normocephalic atraumatic mucous membranes are moist oropharynx shows mild pharyngeal erythema no exudate. Cardio is regular without rubs murmurs gallops. Lungs diminished bibasilar may be faint rales on the right no rhonchi no wheezes good effort. Abdomen soft nondistended nontender no masses organomegaly. Left arm left leg wrapped dressed and in sling/brace, no neurovascular compromise no erythema no crepitus. Neuro shows no focal deficits. Mental status good recent and remote recall normal mood and affect good judgment and insight. Results & Data Vital Signs (Past 12 Hours) Vital Signs Temp Pulse Resp BP Pulse Ox Pulse Ox 08/18/19 17:10 93 x-ray noted 08/18/19 17:05 98.2 F 98 H 22 101/54 L 83 L 08/18/19 15:38 99.9 F H 104 H 18 116/63 95 08/18/19 11:54 99.0 F 104 H 18 125/65 93 08/18/19 09:45 90 PG Care Time/CCT Total # of Minutes Spent Total Time Spent with Patient: Total time spent is greater than 50% in coordination of care (as documented) at patient's floor/unit and/or counseling patient: (1) Closed fracture of left distal femur Encounter type: initial encounter Fracture morphology: unspecified fracture morphology Qualified Code(s): S72.402A - Unspecified fracture of lower end of left femur, initial encounter for closed fracture (2) Closed fracture of left elbow Encounter type: initial encounter Qualified Code(s): S42.402A - Unspecified fracture of lower end of left humerus, initial encounter for closed fracture (3) Fall Encounter type: initial encounter Qualified Code(s): W19.XXXA - Unspecified fall, initial encounter
[2019-08-18] MEDS ORDERED: CARBOHYDRATES FOR HYPOGLYCEMIA PO PRN (21:33)
[2019-08-18] MEDS ORDERED: DEXTROSE 50% 50 ML SYRINGE IV PRN (21:33)
[2019-08-18] MEDS ORDERED: GLUCOSE 40% GEL 15 GM TUBE PO PRN (21:33)
[2019-08-18] MEDS ORDERED: GLUCAGON FOR INJ 1 MG VIAL SQ PRN (21:33)
[2019-08-18] MEDS ORDERED: GLUCOSE 10 TABS/TUBE PO PRN (21:33)
[2019-08-18] MEDS ORDERED: LANTUS PER UNIT CHARGE SC ONE (21:35)
[2019-08-18] MEDS: INSULIN ASPART 100 UNITS/ML 3 ML PEN SC SCH (21:57)
[2019-08-19] MEDS ORDERED: INSULIN ASPART 100 UNITS/ML 3 ML PEN SC SCH
[2019-08-19] MEDS: ACETAMINOPHEN SOL 650 MG/20.3 ML UDC PO SCH ×5 (00:05→23:57)
[2019-08-19 05:18] LABS: Hematocrit (blood only) 20.9 % (37-47); Hemoglobin 6.9 g/dL (12.0-16.0); Mean Corpuscular Hemoglobin 30.7 pg (25-34); Mean Corpuscular Volume 92.9 fL (80-100); Mean Platelet Volume 9.5 fL (7.4-10.4); Platelet Count 99 K/uL (130-400); RDW Standard Deviation 50.7 fL (36.4-46.3); Red Blood Count 2.25 M/uL (4.2-5.4)
[2019-08-19] MEDS ORDERED: SODIUM CHLORIDE 0.9% 250 ML IV PRN (05:39)
[2019-08-19 05:40] LABS: Calcium 8.3 mg/dl (8.5-10.1); Creatinine Clr Calc Pharmacy 83.1 ml/min; Est GFR (African American) 97.8; Est GFR (Non-African American) 84.4; Potassium 3.3 mmol/L (3.5-5.1)
[2019-08-19 05:41] LABS: C Reactive Protein 16.5 mg/dl (0-0.29)
[2019-08-19 05:46] LABS: Eosinophils # (auto) 0.05 K/uL (0-0.5); Eosinophils % (auto) 1.1 %; Immature Granulocytes # (auto) 0.04 K/uL (0.00-0.02); Immature Granulocytes % (auto) 0.9 %; Lymphocytes # (auto) 0.55 K/uL (1.2-3.4); Monocytes # (auto) 0.34 K/uL (0.11-0.59); Monocytes % (auto) 7.4 %; Neutrophils # (auto) 3.62 K/uL (1.4-6.5); Neutrophils % (auto) 78.6 %; RBC Morphology Unremarkable
[2019-08-19] MEDS: ESCITALOPRAM OXALATE 10 MG TAB PO SCH (08:40)
[2019-08-19] MEDS: METOPROLOL SUCC 25MG EXT REL TAB PO SCH (08:40)
[2019-08-19] MEDS: PANTOprazole 40 MG TAB PO SCH (08:40)
[2019-08-19] MEDS: LATANOPROST 0.005% OP SOLN 2.5 ML BTL OPB SCH (08:41)
[2019-08-19] MEDS: ATORVASTATIN 10 MG TAB PO SCH (08:41)
[2019-08-19] MEDS: MIRABEGRON ER 25 MG TAB PO SCH (08:41)
[2019-08-19] MEDS: BRIMONIDINE TARTRATE-P 0.15% 5 ML BTL OP SCH ×2 (08:42→21:38)
[2019-08-19] MEDS: DOCUSATE SODIUM 100 MG CAP PO SCH ×2 (08:42→21:19)
[2019-08-19] MEDS: INSULIN ASPART 100 UNITS/ML 3 ML PEN SC SCH ×4 (08:43→21:25)
[2019-08-19] MEDS: OXYCODONE HCL IR 5 MG TAB (IMMEDIATE RELEASE) PO PRN ×3 (10:36→21:21)
[2019-08-19] MEDS ORDERED: PHARMACY GLYCEMIC MGMT CONSULT SCH (10:49)
[2019-08-19] MEDS ORDERED: PHARMACY GLYCEMIC MGMT CONSULT STA (10:52)
[2019-08-19] MEDS ORDERED: CARBOHYDRATES FOR HYPOGLYCEMIA PO PRN (10:52)
[2019-08-19] MEDS ORDERED: GLUCOSE 10 TABS/TUBE PO PRN (10:52)
[2019-08-19] MEDS ORDERED: GLUCOSE 40% GEL 15 GM TUBE PO PRN (10:52)
[2019-08-19] MEDS ORDERED: DEXTROSE 50% 50 ML SYRINGE IV PRN (10:52)
[2019-08-19] MEDS ORDERED: GLUCAGON FOR INJ 1 MG VIAL SQ PRN (10:52)
--- NOTE | 2019-08-19 10:58 | Pharmacy Report ---
Glycemic Control Consultation - Date of Service August 19, 2019 - Scope Scope: Glycemic Pharmacist consulted by Dr Mae on 08/19/19 for glycemic control and to write orders per [facility] inpatient glycemic control protocol - Objective Weight: 101 kg Accuchecks BSG (last 24hrs): 08/18/19 08/18/19 08/18/19 11:47 16:29 17:24 Glucose POC Glucose 188 H 159 H 156 H 08/18/19 08/18/19 08/19/19 21:10 23:58 04:28 Glucose 142 H POC Glucose 200 H 210 H 08/19/19 08:03 Glucose POC Glucose 171 H Laboratory Data (last 24hrs): 08/19/19 04:28 Potassium 3.3 L Carbon Dioxide 33 H Anion Gap 3.0 Creatinine 0.68 Est Cr Clr Drug Dosing 83.1 - Recent Pertinent Medications Outpatient Anti-diabetic Regimen: * Novolog insulin pump: * Basal settings: 1351-3723 1 unit/hr, 0228-8908 1.2 units/hr (28.2units/day) * Bolus settings: 1:10 (2567-3474), 1:8 (1615-4905), 1:6 (1355-0989) plus CF:25 with BG goal of 110-130. * A1c = 5.1 % 07/17/19 - A1c value falsely low d/t pt is a very slow glycosolator. Therefore BG values are a better indicator of overall BG control. Risk Factors for Insulin Resistance: * Steroids: Dexamethasone on 08/16 preop * Infection:IV Rocephin * Recent Surgery: POD 3, Closed fracture of left distal femur, status post ORIF left distal femur fracture * Diet: PO - Assessment & Plan Assessment & Plan: ASSESSMENT: * 79 year old, POD 3 ORIF left distal femur fracture, Type 2 diabetic managed on Novolog insulin pump, settings as above, patient was managing blood sugar on her own pump 08/16-08/18, but does not have more tubing supplies as inpatient and was changed to basal bolus last night. Pharmacy consulted this morning for management. * Patient had Lantus 30 units x 1 last night, will continue Lantus HS dosing based on scale * Will tighten CF and CR to be similar to pump settings. PLAN FOR INPATIENT GLYCEMIC CONTROL: * Holding outpatient Novolog pump d/t not having supplies * Basal insulin * Lantus SQ HS * BSG < 180mg/dl - 25 units * BSG 180mg/dl or greater - 30 units * Bolus insulin * NovoLog per scale ACHS or Q6hrs while NPO * Goal Range: Low 110 mg/dL - High 140 mg/dL * tighten: Correction Factor: 25 mg/dL/unit * tighten: Nutritional / Prandial insulin per carb ratio of 1 unit per 7 grams CHO consumed * Please note that the plan above was derived based on current level of insulin resistance and hospital stress. These recommendations are appropriate for inpatient admission only. Plan of care upon discharge will need to be reassessed to avoid potential outpatient hypo/hyperglycemia. Thank you.
--- NOTE | 2019-08-19 11:03 | Hospitalist Progress Note ---
Date of Service August 19, 2019 Assessment & Plan (1) Closed fracture of left distal femur: -Now postop, pain control seems more reasonable, continue to titrate. PT/OT ongoing eval and treat. SNF/rehab after discharge (2) Closed fracture of left elbow: -Same as above (3) Healthcare-associated pneumonia: Fever resolved. Upper respiratory symptoms a little bit of lung findings on exam suspicious chest x-ray and elevated CRP/procalcitonin. MRSA nares negative, no need for MRSA coverage. Continue empiric ceftriaxone for possible pneumonia and added doxycycline 100 mg p.o. twice daily, as other than being in the hospital and a well-controlled diabetic, she seems to be fairly low risk for Pseudomonas. Follow closely. (4) Fall: -Likely mechanical fall; no indication for cardiac work up. -Ongoing PT/OT eval and treat. (5) Osteoporosis: Given the rather significant trauma from what appeared to be a moderate at worst mechanical fall, could be due to osteoporosis she is following actively with endocrinology who has been managing things aggressively, discussed with her that anticipate the need to escalate treatment further to something such as Prolia or Forteo, will obviously defer to endocrine in this regard, but will definitely want to ensure she has close endocrine follow-up after discharge. (6) Effusion of knee joint, left: - In setting of fall/acute fracture. (7) Anemia: -Acute blood loss from femur and radius fracturesrequired transfusion. Improved after transfusion of 2 red cells, continue to follow. Continue to follow CBC. 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 (8) Diabetes mellitus: -Most recent A1C was 5.1 in Jul 2019. -Using her own insulin pump, sugars are under reasonable control overall, continue current care. Glycemic control per pharmacy (9) HLD (hyperlipidemia): - Continue statin, 10 mg p.o. every other day. (10) HTN (hypertension): -Blood pressure control adequate, continue current. (11) Depression: - Continue Lexapro as prescribed. (12) Right bundle branch block: - H/o RBBB; Pre-op EKG showed known RBBB, otherwise negative. - Follows annually with Dr. Israel (cardiology in [place]). Follow-up with Dr. Israel after discharge (13) DVT prophylaxis: - SCDs; hold pharmacologic ppx for procedure. Dispo: Stable for MedSurg, once pain control with mobility is better, and once pneumonia is improving, then we can start to look towards SNF with a rehab emphasis. Subjective Patient seen and examined at the bedside. Slowly improving. Afebrile overnight. P.o. intake slowly improving. Patient denies fever chills chest pain shortness of breath abdominal pain frequency urgency hematuria dysuria syncope or near syncope. Review of Systems Review of Systems: All systems reviewed & are unremarkable except as noted in HPI & below Physical Exam Constitutional: WD/WN, vitals as above well developed Eyes: PERRL, conjunctivae normal, anicteric sclerae ENMT: external ear and nose normal, oropharynx normal Neck: trachea midline, no thyromegaly Respiratory: normal respiratory effort, lungs clear to auscultation Cardiovascular: RRR, no murmur, no edema Gastrointestinal (Abdomen): normal bowel sounds, soft, nontender, no hepatosplenomegaly Musculoskeletal: Closed fracture of the left elbow, closed fracture of the left distal femur. Left leg and left arm in splint. Skin: no rashes, warm and dry Neurologic: patellar DTR's 2+ bilat, sensation intact Genitourinary: no vaginal lesions, no adnexal mass Lymphatic: no cervical or axillary lymphadenopathy Results & Data Vital Signs (Past 12 Hours) Vital Signs Temp Pulse Pulse Resp BP BP Pulse Ox 08/19/19 08:10 36.9 C 99 H 18 115/66 97 08/19/19 08:04 36.8 C 94 H 18 115/72 96 08/19/19 07:40 36.7 C 92 H 18 113/59 L 98 08/19/19 07:25 36.7 C 91 H 16 119/65 97 08/19/19 07:05 36.8 C 96 H 16 114/49 L 97 08/18/19 23:30 36.7 C 95 H 16 112/63 97 PG Care Time/CCT Total # of Minutes Spent Total Time Spent with Patient: Total time spent is greater than 50% in coordination of care (as documented) at patient's floor/unit and/or counseling patient: (1) Closed fracture of left distal femur Encounter type: initial encounter Fracture morphology: unspecified fracture morphology Qualified Code(s): S72.402A - Unspecified fracture of lower end of left femur, initial encounter for closed fracture (2) Closed fracture of left elbow Encounter type: initial encounter Qualified Code(s): S42.402A - Unspecified fracture of lower end of left humerus, initial encounter for closed fracture (3) Fall Encounter type: initial encounter Qualified Code(s): W19.XXXA - Unspecified fall, initial encounter
[2019-08-19] MEDS: cefTRIAXone SODIUM 2,000 MG in DEXTROSE 5% 50 ML IV SCH (11:45)
[2019-08-19] MEDS: IBUPROFEN 600 MG TAB PO PRN ×2 (12:49→23:51)
[2019-08-19] MEDS: DOXYCYCLINE HYCLATE 100 MG CAP PO SCH ×2 (12:49→21:21)
--- NOTE | 2019-08-19 14:26 | Orthopedic Progress Note ---
Date of Service August 19, 2019 Assessment & Plan (1) Closed fracture of left distal femur: Postop day 3 status post ORIF left distal femur fracture She will have to maintain nonweightbearing status. With her ORIF of her left radial head, platform walker will likely not be used unless she can learn to rest the arm only on the platform without putting weight on it. She will likely need to be bed to chair or bed to wheelchair for some time. Can have the immobilizer loosened while in bed for a short while daily. NO ROM of the knee. Must have it on while sleeping or getting OOB. Acute blood loss anemia -hemoglobin was down to 6.9 today. 1 unit PRBC's transfused today. h/o chronic anemia Continue DVT prophylaxis Continue current pain management regimen. dc planning - Planning for [facility] upon DC. No further surgery needed. Will follow qod for now. (2) Closed fracture of left elbow: Maintain current splint and continue to use sling. Elevate on one pillow as able. Subjective Pt sitting up in bed. Awake, alert. States she received another transfusion today. Hgb down to 6.9 today from 7.7 yesterday. Developed a little bit of numbness over the anterolateral aspect of the Right thigh. No other complaints. Feeling a little better since transfusion. Pain controlled at rest with her LUE/LLE. Physical Exam Physical Exam: Prevena dressing C/D/I. Calves soft, NT. Moving toes/ankle well. Sensation intact. Thigh with swelling but not tense. LUE splint/dressing C/D/I. Moving the fingers well and have good sensation. Cap refill less than 2 sec. Small area noted over the right anterolateral thigh with mild numbness. Results & Data Vital Signs (Past 12 Hours) Vital Signs Temp Pulse Resp BP Pulse Ox 08/19/19 10:59 36.6 C 88 16 128/66 96 08/19/19 08:10 36.9 C 99 H 18 115/66 97 08/19/19 08:04 36.8 C 94 H 18 115/72 96 08/19/19 07:40 36.7 C 92 H 18 113/59 L 98 08/19/19 07:25 36.7 C 91 H 16 119/65 97 08/19/19 07:05 36.8 C 96 H 16 114/49 L 97 Laboratory Results Laboratory Results WBC 4.60 K/uL (4.8-10.8) L 08/19/19 04:28 RBC 2.25 M/uL (4.2-5.4) L 08/19/19 04:28 Hgb 6.9 g/dL (12.0-16.0) L* 08/19/19 04:28 Hct 20.9 % (37-47) L* 08/19/19 04:28 MCV 92.9 fL (80-100) 08/19/19 04:28 MCH 30.7 pg (25-34) 08/19/19 04:28 MCHC 33.0 g/dL (32-36) 08/19/19 04:28 RDW Std Deviation 50.7 fL (36.4-46.3) H 08/19/19 04:28 RDW Coeff of Gary 15.0 % (11.5-14.5) H 08/19/19 04:28 Plt Count 99 K/uL (130-400) L 08/19/19 04:28 MPV 9.5 fL (7.4-10.4) 08/19/19 04:28 Immature Gran % (Auto) 0.9 % 08/19/19 04:28 Neut % (Auto) 78.6 % 08/19/19 04:28 Lymph % (Auto) 12.0 % 08/19/19 04:28 [place] % (Auto) 7.4 % 08/19/19 04:28 Eos % (Auto) 1.1 % 08/19/19 04:28 Baso % (Auto) 0.0 % 08/19/19 04:28 Immature Gran # (Auto) 0.04 K/uL (0.00-0.02) H 08/19/19 04:28 Neut # (Auto) 3.62 K/uL (1.4-6.5) 08/19/19 04:28 Lymph # (Auto) 0.55 K/uL (1.2-3.4) L 08/19/19 04:28 [place] # (Auto) 0.34 K/uL (0.11-0.59) 08/19/19 04:28 Eos # (Auto) 0.05 K/uL (0-0.5) 08/19/19 04:28 Baso # (Auto) 0.00 K/uL (0-0.2) 08/19/19 04:28 Platelet Estimate Decreased (Normal) L 08/17/19 06:16 RBC Morphology Unremarkable 08/19/19 04:28 Sodium 135 mmol/L (136-145) L 08/19/19 04:28 Potassium 3.3 mmol/L (3.5-5.1) L 08/19/19 04:28 Chloride 99 mmol/L (98-107) 08/19/19 04:28 Carbon Dioxide 33 mmol/L (21-32) H 08/19/19 04:28 Anion Gap 3.0 (3-11) 08/19/19 04:28 BUN 11 mg/dl (7-18) 08/19/19 04:28 Creatinine 0.68 mg/dl (0.6-1.2) 08/19/19 04:28 Est Cr Clr Drug Dosing 83.1 ml/min 08/19/19 04:28 Est GFR ( Amer) 97.8 08/19/19 04:28 Est GFR (Non-Af Amer) 84.4 08/19/19 04:28 BUN/Creatinine Ratio 17.0 (10-20) 08/19/19 04:28 Glucose 142 mg/dl (70-99) H 08/19/19 04:28 POC Glucose 175 (70-99) H 08/19/19 11:56 Calcium 8.3 mg/dl (8.5-10.1) L 08/19/19 04:28 Iron 17 mcg/dl (35-150) L 08/17/19 06:16 TIBC 163 mcg/dl (250-450) L 08/17/19 06:16 Transferrin 132 mg/dl (200-360) L 08/17/19 06:16 Transferrin % Sat 9 % (15-50) L 08/17/19 06:16 Ferritin 138.0 ng/ml (8-388) 08/17/19 06:16 Total Bilirubin 1.2 mg/dl (0.2-1) H 08/16/19 06:23 AST 24 U/L (15-37) 08/16/19 06:23 ALT 24 U/L (12-78) 08/16/19 06:23 Alkaline Phosphatase 46 U/L (45-117) 08/16/19 06:23 C-Reactive Protein 16.50 mg/dl (0-0.29) H 08/19/19 04:28 Total Protein 6.6 gm/dl (6.4-8.2) 08/16/19 06:23 Albumin 3.3 gm/dl (3.4-5.0) L 08/16/19 06:23 Globulin 3.3 gm/dl (2.5-4.0) 08/16/19 06:23 Albumin/Globulin Ratio 1.0 (0.9-2) 08/16/19 06:23 Procalcitonin 0.79 ng/ml (0-0.5) H 08/18/19 09:13 Urine Color Yellow 08/18/19 Unknown Urine Appearance Clear (Clear) 08/18/19 Unknown Urine pH 6.5 (4.5-7.5) 08/18/19 Unknown Ur Specific [place] 1.012 (1.000-1.030) 08/18/19 Unknown Urine Protein Trace (Negative) H 08/18/19 Unknown Urine Glucose (UA) Negative (Negative) 08/18/19 Unknown Urine Ketones Negative (Negative) 08/18/19 Unknown Urine Blood 2+ (Negative) H 08/18/19 Unknown Urine Nitrite Negative (Negative) 08/18/19 Unknown Urine Bilirubin Negative (Negative) 08/18/19 Unknown Urine Urobilinogen Negative (Negative) 08/18/19 Unknown Ur Leukocyte Esterase Negative (Negative) 08/18/19 Unknown Urine WBC (Auto) 1-5 /hpf (0-5) 08/18/19 Unknown Urine RBC (Auto) 0-4 /hpf (0-4) 08/18/19 Unknown U Hyaline Cast (Auto) 0 /lpf (0-5) 08/18/19 Unknown U Epithel Cells (Auto) 5-10 /lpf (0-5) H 08/18/19 Unknown Urine Bacteria (Auto) Negative (Negative) 08/18/19 Unknown Nasal Screen MRSA (PCR) Negative (Negative) 08/18/19 17:40 Blood Type O Positive 08/19/19 04:28 Blood Type Recheck O Positive 08/16/19 06:23 Antibody Screen NEGATIVE 08/19/19 04:28 Crossmatch See Detail 10/16/19 04:28 (1) Closed fracture of left distal femur Encounter type: initial encounter Fracture morphology: unspecified fracture morphology Qualified Code(s): S72.402A - Unspecified fracture of lower end of left femur, initial encounter for closed fracture (2) Closed fracture of left elbow Encounter type: initial encounter Qualified Code(s): S42.402A - Unspecified fracture of lower end of left humerus, initial encounter for closed fracture
[2019-08-19] MEDS ORDERED: DOXYCYCLINE HYCLATE 100 MG in DEXTROSE 5% 100 ML IV SCH (21:00)
[2019-08-19] MEDS: INSULIN GLARGINE SOLOSTAR 100 UNITS/ML 3 ML PEN SC SCH (21:23)
[2019-08-20 06:08] LABS: Estimated Average Glucose 105 mg/dl; Hemoglobin A1C 5.3 % (4.5-5.6)
[2019-08-20] MEDS: ACETAMINOPHEN SOL 650 MG/20.3 ML UDC PO SCH ×3 (06:23→18:30)
[2019-08-20] MEDS: LATANOPROST 0.005% OP SOLN 2.5 ML BTL OPB SCH (08:36)
[2019-08-20] MEDS: BRIMONIDINE TARTRATE-P 0.15% 5 ML BTL OP SCH ×2 (08:36→21:31)
[2019-08-20] MEDS: DOXYCYCLINE HYCLATE 100 MG CAP PO SCH ×2 (08:36→21:31)
[2019-08-20] MEDS: ESCITALOPRAM OXALATE 10 MG TAB PO SCH (08:36)
[2019-08-20] MEDS: DOCUSATE SODIUM 100 MG CAP PO SCH ×2 (08:37→21:31)
[2019-08-20] MEDS: MIRABEGRON ER 25 MG TAB PO SCH (08:37)
[2019-08-20] MEDS: PANTOprazole 40 MG TAB PO SCH (08:37)
[2019-08-20] MEDS: METOPROLOL SUCC 25MG EXT REL TAB PO SCH (08:37)
[2019-08-20] MEDS: OXYCODONE HCL IR 5 MG TAB (IMMEDIATE RELEASE) PO PRN ×3 (08:40→20:53)
[2019-08-20] MEDS: INSULIN ASPART 100 UNITS/ML 3 ML PEN SC SCH ×6 (08:41→21:20)
[2019-08-20] MEDS ORDERED: ALBUTEROL HFA 8 GM INHALER INH PRN (10:22)
[2019-08-20 10:35] LABS: Basophils # (auto) 0.01 K/uL (0-0.2); Basophils % (auto) 0.3 %; Eosinophils # (auto) 0.03 K/uL (0-0.5); Hematocrit (blood only) 24.5 % (37-47); Hemoglobin 8.1 g/dL (12.0-16.0); Immature Granulocytes # (auto) 0.04 K/uL (0.00-0.02); Immature Granulocytes % (auto) 1.4 %; Lymphocytes # (auto) 0.44 K/uL (1.2-3.4); Lymphocytes % (auto) 15.2 %; Mean Corpuscular Volume 93.9 fL (80-100); Mean Platelet Volume 8.8 fL (7.4-10.4); Monocytes # (auto) 0.22 K/uL (0.11-0.59); Monocytes % (auto) 7.6 %; Neutrophils # (auto) 2.16 K/uL (1.4-6.5); Neutrophils % (auto) 74.5 %; Platelet Count 106 K/uL (130-400); RDW Coefficient of Variation 14.8 % (11.5-14.5); RDW Standard Deviation 50.1 fL (36.4-46.3); Red Blood Count 2.61 M/uL (4.2-5.4)
--- NOTE | 2019-08-20 10:49 | Pharmacy Report ---
Pharmacy Glycemic Short Note 2 - Date of Service August 20, 2019 - Glycemic Short BSG Results (Last 24 hours): 08/19/19 08/19/19 08/19/19 11:56 17:18 21:23 POC Glucose 175 H 168 H 159 H 08/20/19 08:16 POC Glucose 141 H OUTPATIENT ANTIDIABETIC REGIMEN: * Novolog insulin pump: * Basal settings: 6006-7395 1 unit/hr, 2488-9017 1.2 units/hr (28.2units/day) * Bolus settings: 1:10 (2730-3902), 1:8 (2131-2563), 1:6 (5367-4424) plus CF:25 with BG goal of 110-130. * A1c = 5.1 % 07/17/19 - A1c value falsely low d/t pt is a very slow glycosolator. Therefore BG values are a better indicator of overall BG control. Risk Factors for Insulin Resistance: * Steroids: Solu-medrol 40mg IV BID * Infection:IV Rocephin * Recent Surgery: POD 4, Closed fracture of left distal femur, status post ORIF left distal femur fracture * Diet: T1DM ASSESSMENT: 08/20 * BSGs were well controlled over the last 24 hrs, BSGs have ranged 141-175 * Fasting BSG 141 this AM with 25 units Lantus on board * High dose IV steroids added this AM. * Will proactively increase both basal and bolus insulin doses as needs will likely increase substantially. New basal dose will be based on weight and "moderate" stress level. CF and CR dosing will be based upon wt and "severe" stress level 08/19 * 79 year old, POD 3 ORIF left distal femur fracture, Type 2 diabetic managed on Novolog insulin pump, settings as above, patient was managing blood sugar on her own pump 08/16-08/18, but does not have more tubing supplies as inpatient and was changed to basal bolus last night. Pharmacy consulted this morning for management. * Patient had Lantus 30 units x 1 last night, will continue Lantus HS dosing based on scale * Will tighten CF and CR to be similar to pump settings. PLAN FOR INPATIENT GLYCEMIC CONTROL: * Hold insulin pump - supplies not available to use and IV steroids will greatly change requirements * Basal insulin * Lantus 10 units SQ x 1 with next BSG check * Lantus Q HS per scale this evening: * 25 units if BSG less than 180 * 30 units if BSG > 180 * Bolus insulin * NovoLog per scale ACHS and at 0000 + 0400 tonight * Goal Range: Low 110 mg/dL - High 140 mg/dL * Correction Factor: 15 mg/dL/unit * Nutritional / Prandial insulin per carb ratio of 1 unit per 5 grams CHO consumed PLAN FOR DISCHARGE: * may resume insulin pump on discharge per home settings with close f/u with endocrinology and PCP
[2019-08-20] MEDS: FLUTICASONE/SALMETEROL 250/50 (ADVAIR) 14 PUFF/1 INHALER INH SCH ×2 (10:52→21:30)
[2019-08-20] MEDS: methylPREDNISolone 40 MG in SYRINGE 0 ML IV SCH ×2 (10:52→21:18)
[2019-08-20 10:55] LABS: Albumin Level 2.1 gm/dl (3.4-5.0); BUN Creatinine Ratio 16.4 (10-20); Creatinine Clr Calc Pharmacy 75.3 ml/min; Est GFR (African American) 89.1; Est GFR (Non-African American) 76.9; Potassium 3.5 mmol/L (3.5-5.1)
[2019-08-20 11:00] LABS: Albumin Globulin Ratio 0.6 (0.9-2); Globulin 3.7 gm/dl (2.5-4.0); Total Protein 5.8 gm/dl (6.4-8.2)
[2019-08-20] MEDS: ALBUT/IPRATROP 3MG/0.5MG NEB 3 ML VIAL NEB SCH ×3 (11:08→20:20)
[2019-08-20 11:20] LABS: Mean Corpuscular Hgb Conc 33.1 g/dL (32-36)
[2019-08-20] MEDS ORDERED: INSULIN GLARGINE SOLOSTAR 100 UNITS/ML 3 ML PEN SC ONE (11:30)
[2019-08-20] MEDS ORDERED: POTASSIUM CHLORIDE 20 MEQ TABCR PO STA (12:56)
--- NOTE | 2019-08-20 13:13 | Hospitalist Progress Note ---
Date of Service August 20, 2019 Assessment & Plan (1) Closed fracture of left distal femur: -Now postop, pain control seems more reasonable, continue to titrate. PT/OT ongoing eval and treat. SNF/rehab after discharge (2) Closed fracture of left elbow: -Same as above (3) Healthcare-associated pneumonia: Fever resolved. Upper respiratory symptoms a little bit of lung findings on exam suspicious chest x-ray and elevated CRP/procalcitonin. MRSA nares negative, no need for MRSA coverage. Continue empiric ceftriaxone for possible pneumonia and added doxycycline 100 mg p.o. twice daily, as other than being in the hospital and a well-controlled diabetic, she seems to be fairly low risk for Pseudomonas. Follow closely. (4) Fall: -Likely mechanical fall; no indication for cardiac work up. -Ongoing PT/OT eval and treat. (5) Osteoporosis: Given the rather significant trauma from what appeared to be a moderate at worst mechanical fall, could be due to osteoporosis she is following actively with endocrinology who has been managing things aggressively, discussed with her that anticipate the need to escalate treatment further to something such as Prolia or Forteo, will obviously defer to endocrine in this regard, but will definitely want to ensure she has close endocrine follow-up after discharge. (6) Effusion of knee joint, left: - In setting of fall/acute fracture. (7) Anemia: -Acute blood loss from femur and radius fracturesrequired transfusion. Improved after transfusion of 2 red cells, continue to follow. Continue to follow CBC. 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 (8) Diabetes mellitus: -Most recent A1C was 5.1 in Jul 2019. -Using her own insulin pump, sugars are under reasonable control overall, continue current care. Glycemic control per pharmacy (9) HLD (hyperlipidemia): - Continue statin, 10 mg p.o. every other day. (10) HTN (hypertension): -Blood pressure control adequate, continue current. (11) Depression: - Continue Lexapro as prescribed. (12) Right bundle branch block: - H/o RBBB; Pre-op EKG showed known RBBB, otherwise negative. - Follows annually with Dr. Israel (cardiology in [place]). Follow-up with Dr. Israel after discharge (13) DVT prophylaxis: - SCDs; hold pharmacologic ppx for procedure. Dispo: Stable for MedSurg, once pain control with mobility is better, and once pneumonia is improving, then we can start to look towards SNF with a rehab emphasis. Subjective Patient seen and examined at the bedside. Afebrile, slowly improving. Patient is still physically very weak and unable to transfer on her own to the wheelchair. Continue progressing with physical therapy. Appetite is not that the past. Patient states she has difficult time chewing food. Placed speech swallowing referral for adjustment of patient's food consistency and referral to dietitian for nutrition evaluation. Patient is post transfusion 2 units. Hemoglobin is 8.1, stable improved from 6.9 which was yesterday. Patient denies fever chills, chest pain, shortness of breath, abdominal pain, frequency, urgency, hemoptysis, hematuria, dysuria, nausea, vomiting, near-syncope or syncope. Review of Systems Review of Systems: All systems reviewed & are unremarkable except as noted in HPI & below Physical Exam Constitutional: WD/WN, vitals as above well developed Eyes: PERRL, conjunctivae normal, anicteric sclerae ENMT: external ear and nose normal, oropharynx normal Neck: trachea midline, no thyromegaly Respiratory: normal respiratory effort, lungs clear to auscultation Cardiovascular: RRR, no murmur, no edema Gastrointestinal (Abdomen): normal bowel sounds, soft, nontender, no hepatosplenomegaly Skin: no rashes, warm and dry Neurologic: patellar DTR's 2+ bilat, sensation intact Genitourinary: no vaginal lesions, no adnexal mass Lymphatic: no cervical or axillary lymphadenopathy Results & Data Vital Signs (Past 12 Hours) Vital Signs Temp Pulse Resp BP Pulse Ox 08/20/19 11:08 91 H 16 95 08/20/19 08:19 36.6 C 86 18 127/69 96 PG Care Time/CCT Total # of Minutes Spent Total Time Spent with Patient: Total time spent is greater than 50% in coordination of care (as documented) at patient's floor/unit and/or counseling patient: (1) Closed fracture of left distal femur Encounter type: initial encounter Fracture morphology: unspecified fracture morphology Qualified Code(s): S72.402A - Unspecified fracture of lower end of left femur, initial encounter for closed fracture (2) Closed fracture of left elbow Encounter type: initial encounter Qualified Code(s): S42.402A - Unspecified fracture of lower end of left humerus, initial encounter for closed fracture (3) Fall Encounter type: initial encounter Qualified Code(s): W19.XXXA - Unspecified fall, initial encounter
[2019-08-20] MEDS: IBUPROFEN 600 MG TAB PO PRN (16:43)
[2019-08-20] MEDS ORDERED: Nursing to Pharmacy Communication ONE (18:25)
[2019-08-20] MEDS: INSULIN GLARGINE SOLOSTAR 100 UNITS/ML 3 ML PEN SC SCH (21:18)
[2019-08-20] MEDS: guaiFENesin 600 MG TABCR PO SCH (21:32)
[2019-08-20] MEDS: TOLTERODINE TARTRATE 2 MG TAB PO SCH (21:33)
[2019-08-21] MEDS: ACETAMINOPHEN SOL 650 MG/20.3 ML UDC PO SCH ×5 (00:29→23:57)
[2019-08-21] MEDS: INSULIN ASPART 100 UNITS/ML 3 ML PEN SC SCH ×6 (00:30→20:44)
[2019-08-21 05:24] LABS: Hematocrit (blood only) 22.9 % (37-47); Hemoglobin 7.5 g/dL (12.0-16.0); Immature Granulocytes # (auto) 0.03 K/uL (0.00-0.02); Immature Granulocytes % (auto) 0.9 %; Lymphocytes # (auto) 0.26 K/uL (1.2-3.4); Lymphocytes % (auto) 8.2 %; Mean Corpuscular Hemoglobin 30.5 pg (25-34); Mean Corpuscular Hgb Conc 32.8 g/dL (32-36); Mean Corpuscular Volume 93.1 fL (80-100); Mean Platelet Volume 9.1 fL (7.4-10.4); Monocytes # (auto) 0.09 K/uL (0.11-0.59); Monocytes % (auto) 2.8 %; Neutrophils # (auto) 2.79 K/uL (1.4-6.5); Neutrophils % (auto) 88.1 %; Platelet Count 111 K/uL (130-400); RDW Coefficient of Variation 14.7 % (11.5-14.5); RDW Standard Deviation 49.1 fL (36.4-46.3); Red Blood Count 2.46 M/uL (4.2-5.4); White Blood Count 3.17 K/uL (4.8-10.8)
[2019-08-21 05:52] LABS: Albumin Globulin Ratio 0.6 (0.9-2); Albumin Level 2.2 gm/dl (3.4-5.0); BUN Creatinine Ratio 21.5 (10-20); Bilirubin,Total 0.9 mg/dl (0.2-1); Calcium 8.3 mg/dl (8.5-10.1); Creatinine Clr Calc Pharmacy 79.6 ml/min; Est GFR (African American) 95.2; Est GFR (Non-African American) 82.2; Globulin 3.6 gm/dl (2.5-4.0); Potassium 4.3 mmol/L (3.5-5.1); RBC Morphology Unremarkable; Total Protein 5.8 gm/dl (6.4-8.2)
[2019-08-21] MEDS: ALBUT/IPRATROP 3MG/0.5MG NEB 3 ML VIAL NEB SCH ×4 (07:30→18:59)
[2019-08-21] MEDS ORDERED: INSULIN GLARGINE SOLOSTAR 100 UNITS/ML 3 ML PEN SC ONE (08:00)
--- NOTE | 2019-08-21 08:56 | Hospitalist Progress Note ---
Date of Service August 21, 2019 Assessment & Plan (1) Closed fracture of left distal femur: -Now postop, pain control seems more reasonable, continue to titrate. PT/OT ongoing eval and treat. SNF/rehab after discharge (2) Closed fracture of left elbow: -Same as above (3) Healthcare-associated pneumonia: Fever resolved. Upper respiratory symptoms a little bit of lung findings on exam suspicious chest x-ray and elevated CRP/procalcitonin. MRSA nares negative, no need for MRSA coverage. Continue empiric ceftriaxone for possible pneumonia and added doxycycline 100 mg p.o. twice daily, as other than being in the hospital and a well-controlled diabetic, she seems to be fairly low risk for Pseudomonas. Follow closely. (4) Fall: -Likely mechanical fall; no indication for cardiac work up. -Ongoing PT/OT eval and treat. (5) Osteoporosis: Given the rather significant trauma from what appeared to be a moderate at worst mechanical fall, could be due to osteoporosis she is following actively with endocrinology who has been managing things aggressively, discussed with her that anticipate the need to escalate treatment further to something such as Prolia or Forteo, will obviously defer to endocrine in this regard, but will definitely want to ensure she has close endocrine follow-up after discharge. (6) Effusion of knee joint, left: - In setting of fall/acute fracture. (7) Anemia: -Acute blood loss from femur and radius fracturesrequired transfusion. Improved after transfusion of 2 red cells, but then dropped again to 7.5. Given another nit of blood. No obvious GI bleed, but will check for FOB. Consult Hem/onc. Continue to follow CBC. 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 (8) Diabetes mellitus: -Most recent A1C was 5.1 in Jul 2019. -Using her own insulin pump, sugars are under reasonable control overall, continue current care. Glycemic control per pharmacy (9) HLD (hyperlipidemia): - Continue statin, 10 mg p.o. every other day. (10) HTN (hypertension): -Blood pressure control adequate, continue current. (11) Depression: - Continue Lexapro as prescribed. (12) Right bundle branch block: - H/o RBBB; Pre-op EKG showed known RBBB, otherwise negative. - Follows annually with Dr. Israel (cardiology in [place]). Follow-up with Dr. Israel after discharge (13) DVT prophylaxis: - SCDs; hold pharmacologic ppx for procedure. Dispo: Stable for MedSurg, once pain control with mobility is better, and once pneumonia is improving, then we can start to look towards SNF with a rehab emphasis. Subjective Patient seen and examined at the bedside. Afebrile, slowly improving. Patient is still physically very weak and unable to transfer on her own to the city [facility]. Continue progressing with physical therapy. Appetite is improving with dietitian and patient states she has difficult time chewing food. Placed speech swallowing referral for adjustment of patient's food consistency and referral to dietitian for nutrition evaluation. Patient is post transfusion 2 units. Hemoglobin was 8.1and today 7.5. Pt denies any blood in the stool or urine. Plan to give another unit of PRBC, check for FOB and consult hematology for severe anemia. Patient denies fever chills, chest pain, shortness of breath, abdominal pain, frequency, urgency, hemoptysis, hematuria, dysuria, nausea, vomiting, near-syncope or syncope. Review of Systems Review of Systems: All systems reviewed & are unremarkable except as noted in HPI & below Physical Exam Constitutional: WD/WN, vitals as above well developed Eyes: PERRL, conjunctivae normal, anicteric sclerae ENMT: external ear and nose normal, oropharynx normal Neck: trachea midline, no thyromegaly Respiratory: normal respiratory effort, lungs clear to auscultation Cardiovascular: RRR, no murmur, no edema Gastrointestinal (Abdomen): normal bowel sounds, soft, nontender, no hepatosplenomegaly Skin: no rashes, warm and dry Neurologic: patellar DTR's 2+ bilat, sensation intact Genitourinary: no vaginal lesions, no adnexal mass Lymphatic: no cervical or axillary lymphadenopathy Results & Data Vital Signs (Past 12 Hours) Vital Signs Temp Pulse Pulse Resp BP Pulse Ox Pulse Ox 08/21/19 08:35 93 08/21/19 07:31 99 H 16 95 08/21/19 07:00 36.8 C 107 H 16 132/56 L 93 08/21/19 00:00 36.9 C 103 H 18 126/65 94 PG Care Time/CCT Total # of Minutes Spent Total Time Spent with Patient: Total time spent is greater than 50% in coordination of care (as documented) at patient's floor/unit and/or counseling patient: (1) Closed fracture of left elbow Encounter type: initial encounter Qualified Code(s): S42.402A - Unspecified fracture of lower end of left humerus, initial encounter for closed fracture (2) Closed fracture of left distal femur Encounter type: initial encounter Fracture morphology: unspecified fracture morphology Qualified Code(s): S72.402A - Unspecified fracture of lower end of left femur, initial encounter for closed fracture (3) Fall Encounter type: initial encounter Qualified Code(s): W19.XXXA - Unspecified fall, initial encounter
[2019-08-21] MEDS ORDERED: SODIUM CHLORIDE 0.9% 250 ML IV PRN (08:57)
--- NOTE | 2019-08-21 08:59 | Pharmacy Report ---
Pharmacy Glycemic Short Note 2 - Date of Service August 21, 2019 - Glycemic Short BSG Results (Last 24 hours): 08/20/19 08/20/19 08/20/19 10:23 12:19 17:14 Glucose 200 H POC Glucose 204 H 254 H 08/20/19 08/21/19 08/21/19 19:57 00:27 04:02 Glucose POC Glucose 260 H 248 H 231 H 08/21/19 08/21/19 08/21/19 04:02 05:03 08:11 Glucose 207 H POC Glucose 231 H 213 H OUTPATIENT ANTIDIABETIC REGIMEN: * Novolog insulin pump: * Basal settings: 3260-2046 1 unit/hr, 6966-3510 1.2 units/hr (28.2units/day) * Bolus settings: 1:10 (0036-0657), 1:8 (2789-3134), 1:6 (7532-6381) plus CF:25 with BG goal of 110-130. * A1c = 5.1 % 07/17/19 - A1c value falsely low d/t pt is a very slow glycosolator. Therefore BG values are a better indicator of overall BG control. Risk Factors for Insulin Resistance: * Steroids: Solu-medrol 40mg IV BID (started 08/20 AM, last dose this AM), then Prednisone 20mg PO Daily starting tomorrow morning * Infection: Doxycycline PO + Ceftriaxone IV * Recent Surgery: POD 5, Closed fracture of left distal femur, status post ORIF left distal femur fracture * Diet: T1DM ASSESSMENT: 08/21 * Blood sugars in the 200s once IV solu-medrol started yesterday, despite extra Lantus dose and tightening CF and CR, this mornings dose will be her last dose, then changing to Prednisone tomorrow. * Will give another extra Lantus dose this morning and tighten CF and CR further while on IV steroids, will need to loosen as steroids are tapered off. 08/20 * BSGs were well controlled over the last 24 hrs, BSGs have ranged 141-175 * Fasting BSG 141 this AM with 25 units Lantus on board * High dose IV steroids added this AM. * Will proactively increase both basal and bolus insulin doses as needs will likely increase substantially. New basal dose will be based on weight and "moderate" stress level. CF and CR dosing will be based upon wt and "severe" stress level 08/19 * 79 year old, POD 3 ORIF left distal femur fracture, Type 2 diabetic managed on Novolog insulin pump, settings as above, patient was managing blood sugar on her own pump 08/16-08/18, but does not have more tubing supplies as inpatient and was changed to basal bolus last night. Pharmacy consulted this morning for management. * Patient had Lantus 30 units x 1 last night, will continue Lantus HS dosing based on scale * Will tighten CF and CR to be similar to pump settings. PLAN FOR INPATIENT GLYCEMIC CONTROL: * Hold insulin pump - supplies not available to use and IV steroids will greatly change requirements * Basal insulin * Lantus 15 units SQ x 1 this AM * Lantus Q HS per scale this evening: * 25 units if BSG less than 180 * 30 units if BSG > 180 * Bolus insulin * NovoLog per scale ACHS * Goal Range: Low 110 mg/dL - High 140 mg/dL * tighten: Correction Factor: 10 mg/dL/unit * tighten: Nutritional / Prandial insulin per carb ratio of 1 unit per 3.5 grams CHO consumed PLAN FOR DISCHARGE: * may resume insulin pump on discharge per home settings with close f/u with endocrinology and PCP
[2019-08-21] MEDS: FLUTICASONE/SALMETEROL 250/50 (ADVAIR) 14 PUFF/1 INHALER INH SCH ×2 (09:08→20:39)
[2019-08-21] MEDS: BRIMONIDINE TARTRATE-P 0.15% 5 ML BTL OP SCH ×2 (09:09→20:40)
[2019-08-21] MEDS: TOLTERODINE TARTRATE 2 MG TAB PO SCH ×2 (09:10→20:39)
[2019-08-21] MEDS: PANTOprazole 40 MG TAB PO SCH (09:11)
[2019-08-21] MEDS: guaiFENesin 600 MG TABCR PO SCH ×2 (09:11→20:38)
[2019-08-21] MEDS: MIRABEGRON ER 25 MG TAB PO SCH (09:11)
[2019-08-21] MEDS: ESCITALOPRAM OXALATE 10 MG TAB PO SCH (09:11)
[2019-08-21] MEDS: METOPROLOL SUCC 25MG EXT REL TAB PO SCH (09:12)
[2019-08-21] MEDS: LATANOPROST 0.005% OP SOLN 2.5 ML BTL OPB SCH (09:12)
[2019-08-21] MEDS: DOXYCYCLINE HYCLATE 100 MG CAP PO SCH ×2 (09:12→20:38)
[2019-08-21] MEDS: methylPREDNISolone 40 MG in SYRINGE 0 ML IV SCH (09:12)
[2019-08-21] MEDS: DOCUSATE SODIUM 100 MG CAP PO SCH ×2 (09:14→20:39)
[2019-08-21] MEDS: IBUPROFEN 600 MG TAB PO PRN (09:16)
--- NOTE | 2019-08-21 09:44 | Orthopedic Progress Note ---
Date of Service August 21, 2019 Assessment & Plan (1) Closed fracture of left distal femur: Postop day 3 status post ORIF left distal femur fracture She will have to maintain nonweightbearing status. With her ORIF of her left radial head, platform walker will likely not be used unless she can learn to rest the arm only on the platform without putting weight on it. She will likely need to be bed to chair or bed to wheelchair for some time. I will place a consult for orthotics to place her in a hinged knee brace. This way we can get rid of her immobilizer. Acute blood loss anemia -hemoglobin was down to 7.5 today. Plans for transfusion in place. Consult placed for hematology. Continue DVT prophylaxis Continue current pain management regimen. dc planning - Planning for [facility] upon DC. No further surgery needed. Will follow qod for now. (2) Closed fracture of left elbow: Maintain current splint and continue to use sling. Elevate on one pillow as able. Subjective Patient sitting up in bed awake and alert. States that the immobilizer on her left lower extremity is causing her discomfort at night due to the metal stays in the back and on the sides. Otherwise her pain control for her left lower extremity is adequate. He states that she has some discomfort in her left upper extremity near the surgical site that at times radiates down the forearm. No ot her complaints. She is getting transfused again today and states that they are unsure why she continues to drop her hemoglobin. She states that hematology consult has been placed. Physical Exam Physical Exam: Immobilizer on the left lower extremity is loosened to examine the leg. Her Pravena dressing is currently being recharged but the dressing appears clean, dry, intact. No overt erythema around the edges of the dressing. Thigh is mildly swollen and soft. Knee is swollen but soft on palpation. Calves are soft and nontender. Neurovascular is intact. Toes are mobile. Does not have any overt swelling or tense swelling of the left lower extremity. Left upper extremity splint/dressing is intact and dry. Fingers are mobile and have good sensation. Results & Data Vital Signs (Past 12 Hours) Vital Signs Temp Pulse Pulse Resp BP Pulse Ox Pulse Ox 08/21/19 08:35 93 08/21/19 07:31 99 H 16 95 08/21/19 07:00 36.8 C 107 H 16 132/56 L 93 08/21/19 00:00 36.9 C 103 H 18 126/65 94 Laboratory Results Laboratory Results WBC 3.17 K/uL (4.8-10.8) L 08/21/19 05:03 RBC 2.46 M/uL (4.2-5.4) L 08/21/19 05:03 Hgb 7.5 g/dL (12.0-16.0) L 08/21/19 05:03 Hct 22.9 % (37-47) L 08/21/19 05:03 MCV 93.1 fL (80-100) 08/21/19 05:03 MCH 30.5 pg (25-34) 08/21/19 05:03 MCHC 32.8 g/dL (32-36) 08/21/19 05:03 RDW Std Deviation 49.1 fL (36.4-46.3) H 08/21/19 05:03 RDW Coeff of [place] 14.7 % (11.5-14.5) H 08/21/19 05:03 Plt Count 111 K/uL (130-400) L 08/21/19 05:03 MPV 9.1 fL (7.4-10.4) 08/21/19 05:03 Immature Gran % (Auto) 0.9 % 08/21/19 05:03 Neut % (Auto) 88.1 % 08/21/19 05:03 Lymph % (Auto) 8.2 % 08/21/19 05:03 Mobile % (Auto) 2.8 % 08/21/19 05:03 Eos % (Auto) 0.0 % 08/21/19 05:03 Baso % (Auto) 0.0 % 08/21/19 05:03 Immature Gran # (Auto) 0.03 K/uL (0.00-0.02) H 08/21/19 05:03 Neut # (Auto) 2.79 K/uL (1.4-6.5) 08/21/19 05:03 Lymph # (Auto) 0.26 K/uL (1.2-3.4) L 08/21/19 05:03 Mobile # (Auto) 0.09 K/uL (0.11-0.59) L 08/21/19 05:03 Eos # (Auto) 0.00 K/uL (0-0.5) 08/21/19 05:03 Baso # (Auto) 0.00 K/uL (0-0.2) 08/21/19 05:03 Platelet Estimate Decreased (Normal) L 08/17/19 06:16 RBC Morphology Unremarkable 08/21/19 05:03 Sodium 136 mmol/L (136-145) 08/21/19 05:03 Potassium 4.3 mmol/L (3.5-5.1) D 08/21/19 05:03 Chloride 101 mmol/L (98-107) 08/21/19 05:03 Carbon Dioxide 33 mmol/L (21-32) H 08/21/19 05:03 Anion Gap 2.0 (3-11) L 08/21/19 05:03 BUN 15 mg/dl (7-18) 08/21/19 05:03 Creatinine 0.71 mg/dl (0.6-1.2) 08/21/19 05:03 Est Cr Clr Drug Dosing 79.6 ml/min 08/21/19 05:03 Est GFR ( Amer) 95.2 08/21/19 05:03 Est GFR (Non-Af Amer) 82.2 08/21/19 05:03 BUN/Creatinine Ratio 21.5 (10-20) H 08/21/19 05:03 Glucose 207 mg/dl (70-99) H 08/21/19 05:03 POC Glucose 213 (70-99) H 08/21/19 08:11 Estimat Average Glucose 105 mg/dl 08/20/19 04:57 Hemoglobin A1c 5.3 % (4.5-5.6) 08/20/19 04:57 Calcium 8.3 mg/dl (8.5-10.1) L 08/21/19 05:03 Iron 17 mcg/dl (35-150) L 08/17/19 06:16 TIBC 163 mcg/dl (250-450) L 08/17/19 06:16 Transferrin 132 mg/dl (200-360) L 08/17/19 06:16 Transferrin % Sat 9 % (15-50) L 08/17/19 06:16 Ferritin 138.0 ng/ml (8-388) 08/17/19 06:16 Total Bilirubin 0.9 mg/dl (0.2-1) 08/21/19 05:03 AST 19 U/L (15-37) 08/21/19 05:03 ALT 21 U/L (12-78) 08/21/19 05:03 Alkaline Phosphatase 50 U/L (45-117) 08/21/19 05:03 C-Reactive Protein 16.50 mg/dl (0-0.29) H 08/19/19 04:28 NT-Pro-B Natriuret Pep 365 pg/ml (0-1800) 08/20/19 10:23 Total Protein 5.8 gm/dl (6.4-8.2) L 08/21/19 05:03 Albumin 2.2 gm/dl (3.4-5.0) L 08/21/19 05:03 Globulin 3.6 gm/dl (2.5-4.0) 08/21/19 05:03 Albumin/Globulin Ratio 0.6 (0.9-2) L 08/21/19 05:03 Procalcitonin 0.79 ng/ml (0-0.5) H 08/18/19 09:13 Urine Color Yellow 08/18/19 Unknown Urine Appearance Clear (Clear) 08/18/19 Unknown Urine pH 6.5 (4.5-7.5) 08/18/19 Unknown Ur Specific [place] 1.012 (1.000-1.030) 08/18/19 Unknown Urine Protein Trace (Negative) H 08/18/19 Unknown Urine Glucose (UA) Negative (Negative) 08/18/19 Unknown Urine Ketones Negative (Negative) 08/18/19 Unknown Urine Blood 2+ (Negative) H 08/18/19 Unknown Urine Nitrite Negative (Negative) 08/18/19 Unknown Urine Bilirubin Negative (Negative) 08/18/19 Unknown Urine Urobilinogen Negative (Negative) 08/18/19 Unknown Ur Leukocyte Esterase Negative (Negative) 08/18/19 Unknown Urine WBC (Auto) 1-5 /hpf (0-5) 08/18/19 Unknown Urine RBC (Auto) 0-4 /hpf (0-4) 08/18/19 Unknown U Hyaline Cast (Auto) 0 /lpf (0-5) 08/18/19 Unknown U Epithel Cells (Auto) 5-10 /lpf (0-5) H 08/18/19 Unknown Urine Bacteria (Auto) Negative (Negative) 08/18/19 Unknown Nasal Screen MRSA (PCR) Negative (Negative) 08/18/19 17:40 Blood Type O Positive 08/19/19 04:28 Blood Type Recheck O Positive 08/16/19 06:23 Antibody Screen NEGATIVE 08/19/19 04:28 Crossmatch See Detail 08/19/19 04:28 (1) Closed fracture of left distal femur Encounter type: initial encounter Fracture morphology: unspecified fracture morphology Qualified Code(s): S72.402A - Unspecified fracture of lower end of left femur, initial encounter for closed fracture (2) Closed fracture of left elbow Encounter type: initial encounter Qualified Code(s): S42.402A - Unspecified fracture of lower end of left humerus, initial encounter for closed fracture
[2019-08-21] MEDS: cefTRIAXone SODIUM 2,000 MG in DEXTROSE 5% 50 ML IV SCH (12:11)
[2019-08-21] MEDS: OXYCODONE HCL IR 5 MG TAB (IMMEDIATE RELEASE) PO PRN (16:49)
--- NOTE | 2019-08-21 17:44 | Oncology Consultation ---
Date of Consultation August 21, 2019 Assessment & Plan (1) Anemia: Ms. Becker is acutely severely anemic in the context of a chronic, moderate anemia. Her acute anemia is almost certainly related to her surgery. Post- operative anemia can take several days to kayy and up to 2 weeks to recover. This time-frame can be delayed further in the elderly and in those with underlying marrow issues, as are likely both the case with Ms. Becker. I would consider transfusing her to a hemoglobin >8, although if she is not symptomatic, she might get there on her own. As to her chronic anemia, that is likely multifactorial. She has liver disease, which causes anemia for a variety of reasons. She also may have a component of anemia of chronic disease, as her transferrin and TIBC are low. Her iron saturation is only 9%, so she is also mildly iron deficient. This latter issue likely results from her abnormal digestive anatomy. I would consider giving her a dose of IV iron, since she has had issues absorbing iron enterally in the past. The iron would likely help her marrow to recover more quickly, as all of her blood loss is certain to exacerbate her iron deficiency. I also would check a B12 and folate level, as she may be mildly deficient in those nutrients as well, in light of her abormal anatomy. Her platelets are chronically, stably low as a result of her splenomegay. Her WBCs have generally been normal and are likely low in part related to critical illness and perhaps in part related to her spleen. Present on Admission?: Yes History of Present Illness Reason for Consultation: Anemia Attending Physician: Keny Mae MD History of Present Illness Ms. 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 She was admitted on 08/15 after tripping over her dog's bed. She fell and landed on her side, resulting in fractures of her distal left femur and left radial head. She underwent ORIF of both fractures on 08/16. She had a hemoglobin of 10.7 on admission, though it trended down a bit to 9.2 prior to surgery. On POD 1, her hemoglobin was 6.5 and has remained under 9 despite receiving 4 units of PRBCs. She denies any obvious bleeding anywhere. She denies any hematochezia, melena, hematuria, epistaxis, or gingival bleeding. Her baseline hemoglobin since 2017 has been around 10 and has been below normal since at least 1999. She met my former partner Dr. Nice in 2016 for low platelets and anemia which he attributed to her splenomegaly that has since proven to be related to TREVIZO. She is sore from her surgeries but otherwise is feeling well today. Allergies Allergy/AdvReac Type Severity Reaction Status Date / Time latex Allergy Intermediate RASH Verified 08/15/19 16:15 LOCALIZED erythromycin base Allergy Mild RASH Verified 08/15/19 16:15 Quinolones Allergy Mild RASH Verified 08/15/19 16:15 chlorhexidine Allergy Unknown SKIN Verified 08/15/19 16:15 BLISTERS Cipro Allergy Unknown RASH Verified 06/02/18 14:15 ciprofloxacin Allergy Unknown RASH Verified 08/15/19 16:15 isopropyl alcohol Allergy Unknown SKIN Verified 08/15/19 16:15 BLISTERS hydromorphone AdvReac Intermediate RASH Verified 08/15/19 16:15 iron AdvReac Intermediate CHEST Verified 08/15/19 16:15 PAIN, IRON DEXTRAN morphine AdvReac Unknown RASH -HIVE Verified 08/15/19 16:15 LIKE Home Medications Home Medications Medication Instructions Recorded Confirmed Type aspirin 81 mg tablet,delayed 81 mg PO DAILY tab 08/13/19 08/15/19 History release atorvastatin 10 mg tablet 10 mg PO Q OTHER DAY #90 tab 08/13/19 08/15/19 History blood sugar diagnostic strips #10 ea 08/13/19 08/15/19 History brimonidine 0.15 % eye drops 1 drops OP BID ml 08/13/19 08/15/19 History calcium carbonate 600 mg calcium 600 mg PO DAILY tab 08/13/19 08/15/19 History (1,500 mg) tablet cyanocobalamin (vit B-12) 500 mcg 500 mcg SUBLINGUAL DAILY tab 08/13/19 08/15/19 History disintegrating tablet,sublingual ergocalciferol (vitamin D2) 50,000 50,000 units PO WEEKLY #14 cap 08/13/19 08/15/19 History unit capsule esomeprazole magnesium 40 mg 40 mg PO DAILY cap 08/13/19 08/15/19 History capsule,delayed release insulin aspart U- 100 100 unit/mL 26 units SQ UNKNOWN ml 08/13/19 08/15/19 History subcutaneous solution insulin syringe U-100 with needle #10 ea 08/13/19 08/15/19 History 0.5 mL 31 gauge x 5/16" lancets 33 gauge #100 ea 08/13/19 08/15/19 History latanoprost 0.005 % eye drops 1 drops OPB DAILY ml 08/13/19 08/15/19 History lisinopril 5 mg tablet 5 mg PO DAILY tab 08/13/19 08/15/19 History metoprolol tartrate 25 mg tablet 25 mg PO DAILY tab 08/13/19 08/15/19 History mirabegron ER 50 mg 50 mg PO DAILY #90 tab 08/13/19 08/15/19 History tablet,extended release 24 hr montelukast 10 mg tablet 10 mg PO DAILY tab 08/13/19 08/15/19 History solifenacin 10 mg tablet 10 mg PO DAILY #90 tab 08/13/19 08/15/19 History escitalopram oxalate [Lexapro] 10 mg PO DAILY 08/15/19 08/15/19 History metoprolol succinate [Toprol XL] 25 mg PO DAILY 08/15/19 08/15/19 History zercodko-zxo-XW-lycopen-lutein 1 tab PO DAILY 08/15/19 08/15/19 History [Centrum Silver] Patient History Medical History Osteoarthritis of ankle, right Depression Diabetes HLD (hyperlipidemia) HTN (hypertension) V tach CAD (coronary artery disease) Carotid artery stenosis Sleep apnea Surgical History H/O total colectomy S/P ankle arthrodesis S/P cholecystectomy S/P foot surgery S/P hysterectomy Family History Other Family history non-contributory Social History Preferred Language: Wallisian Communication Ability: Effective Director Child Abuse Therapy Required: No Beliefs That Will Affect Care: Adventist Adventist Beliefs: Alevism marital status: / Current Living Situation: Alone Feels Safe at Home: Yes Smoking Status: Never smoker Hx Alcohol Use: No Hx Substance Use: No Review of Systems Review of Systems: All systems reviewed & are unremarkable except as noted in HPI & below Respiratory: no dyspnea and no hemoptysis Cardiovascular: no chest pain Gastrointestinal: no blood in stools Genitourinary: no hematuria Musculoskeletal: as per Subjective / HPI Integumentary: no bleeding lesions Physical Exam Constitutional: + obese and comfortable; no acute distress Eyes: + anicteric sclerae ENMT: external ear and nose normal, oropharynx normal Respiratory: normal respiratory effort, lungs clear to auscultation Cardiovascular: RRR, no murmur, no edema Gastrointestinal (Abdomen): Inspection/Auscultation: normal bowel sounds; abdomen not distended Percussion/Palpation: abdomen soft; abdomen nontender Musculoskeletal: Her left arm is in a sling and her left leg is in a brace. Both her left hand and left lower leg are slightly edematous but without any obvious hematomas. Psychiatric: A+Ox3, euthymic affect Lymphatic: no cervical or axillary lymphadenopathy Results & Data Vital Signs (Past 12 Hours) Vital Signs Temp Pulse Pulse Pulse Resp BP BP 08/21/19 16:10 97 H 20 08/21/19 15:00 36.7 C 101 H 18 130/71 08/21/19 11:31 106 H 16 08/21/19 11:14 37 C 100 H 16 130/70 08/21/19 10:48 36.8 C 107 H 16 135/67 08/21/19 10:45 36.8 C 105 H 18 122/60 08/21/19 10:15 36.8 C 105 H 18 117/65 08/21/19 10:00 37.1 C 105 H 18 130/68 08/21/19 09:44 37.0 C 110 H 18 132/63 08/21/19 08:35 08/21/19 07:31 99 H 16 08/21/19 07:00 36.8 C 107 H 16 132/56 L Pulse Ox Pulse Ox 08/21/19 16:10 93 08/21/19 15:00 91 08/21/19 11:31 96 08/21/19 11:14 96 08/21/19 10:48 96 08/21/19 10:45 95 08/21/19 10:15 08/21/19 10:00 93 08/21/19 09:44 08/21/19 08:35 93 08/21/19 07:31 95 08/21/19 07:00 93 Laboratory Results Laboratory Tests 11/23/17 08/15/19 08/16/19 05:22 15:31 06:23 WBC 5.71 Hgb 9.8 L 10.7 L 9.7 L MCV 92.4 Plt Count 103 L Creatinine Transferrin % Sat Total Bilirubin 08/16/19 08/17/19 08/17/19 14:36 06:16 06:16 WBC Hgb 9.2 L 6.5 L* MCV Plt Count Creatinine Transferrin % Sat 9 L Total Bilirubin 08/18/19 08/19/19 08/20/19 07:18 04:28 10:23 WBC Hgb 7.7 L 6.9 L* 8.1 L MCV Plt Count Creatinine Transferrin % Sat Total Bilirubin 08/21/19 08/21/19 05:03 05:03 WBC 3.17 L Hgb 7.5 L MCV Plt Count 111 L Creatinine 0.71 Transferrin % Sat Total Bilirubin 0.9 (1) Anemia Anemia type: unspecified type Qualified Code(s): D64.9 - Anemia, unspecified
[2019-08-21] MEDS: INSULIN GLARGINE SOLOSTAR 100 UNITS/ML 3 ML PEN SC SCH (20:43)
[2019-08-22] MEDS ORDERED: INSULIN ASPART 100 UNITS/ML 3 ML PEN SC SCH ×2 (04:00)
[2019-08-22] MEDS: ACETAMINOPHEN SOL 650 MG/20.3 ML UDC PO SCH ×4 (05:20→23:48)
[2019-08-22 05:46] LABS: Basophils # (auto) 0.01 K/uL (0-0.2); Basophils % (auto) 0.2 %; Eosinophils # (auto) 0.01 K/uL (0-0.5); Eosinophils % (auto) 0.2 %; Hematocrit (blood only) 27.1 % (37-47); Hemoglobin 8.7 g/dL (12.0-16.0); Immature Granulocytes # (auto) 0.11 K/uL (0.00-0.02); Immature Granulocytes % (auto) 2.4 %; Lymphocytes # (auto) 0.61 K/uL (1.2-3.4); Lymphocytes % (auto) 13.2 %; Mean Corpuscular Hemoglobin 30.5 pg (25-34); Mean Corpuscular Hgb Conc 32.1 g/dL (32-36); Mean Corpuscular Volume 95.1 fL (80-100); Mean Platelet Volume 9.8 fL (7.4-10.4); Monocytes % (auto) 6.5 %; Neutrophils # (auto) 3.59 K/uL (1.4-6.5); Neutrophils % (auto) 77.5 %; Platelet Count 144 K/uL (130-400); RDW Coefficient of Variation 15.1 % (11.5-14.5); RDW Standard Deviation 51.7 fL (36.4-46.3); Red Blood Count 2.85 M/uL (4.2-5.4); Reticulocyte % 5.8 % (0.5-2.0); Reticulocytes # 0.17 10^6/uL (0.02-0.10); White Blood Count 4.63 K/uL (4.8-10.8)
[2019-08-22 06:16] LABS: Albumin Level 2.3 gm/dl (3.4-5.0); BUN Creatinine Ratio 27.2 (10-20); Calcium 8.5 mg/dl (8.5-10.1); Creatinine Clr Calc Pharmacy 73.4 ml/min; Est GFR (African American) 86.3; Est GFR (Non-African American) 74.5; Potassium 3.6 mmol/L (3.5-5.1)
[2019-08-22 06:20] LABS: Albumin Globulin Ratio 0.6 (0.9-2); Bilirubin,Total 0.8 mg/dl (0.2-1); Ferritin 203.2 ng/ml (8-388); Globulin 3.6 gm/dl (2.5-4.0); Total Protein 5.9 gm/dl (6.4-8.2)
[2019-08-22] MEDS: ALBUT/IPRATROP 3MG/0.5MG NEB 3 ML VIAL NEB SCH ×4 (07:31→20:30)
--- NOTE | 2019-08-22 07:32 | Hospitalist Progress Note ---
Date of Service August 22, 2019 Assessment & Plan (1) Closed fracture of left distal femur: -Now postop, pain control seems more reasonable, continue to titrate. PT/OT ongoing eval and treat. SNF/rehab after discharge (2) Closed fracture of left elbow: -Same as above (3) Healthcare-associated pneumonia: Fever resolved. Upper respiratory symptoms a little bit of lung findings on exam suspicious chest x-ray and elevated CRP/procalcitonin. MRSA nares negative, no need for MRSA coverage. Continue empiric ceftriaxone for possible pneumonia and added doxycycline 100 mg p.o. twice daily, as other than being in the hospital and a well-controlled diabetic, she seems to be fairly low risk for Pseudomonas. Follow closely. (4) Fall: -Likely mechanical fall; no indication for cardiac work up. -Ongoing PT/OT eval and treat. (5) Osteoporosis: Given the rather significant trauma from what appeared to be a moderate at worst mechanical fall, could be due to osteoporosis she is following actively with endocrinology who has been managing things aggressively, discussed with her that anticipate the need to escalate treatment further to something such as Prolia or Forteo, will obviously defer to endocrine in this regard, but will definitely want to ensure she has close endocrine follow-up after discharge. (6) Effusion of knee joint, left: - In setting of fall/acute fracture. (7) Anemia: Appreciate Dr. Velasquez recommendations. Patient anemia almost certainly related to her recent surgery. Postoperative anemia can take several days to not dinner and after 2 weeks to recover. This time frame can be delayed further in the urgently and in those with underlining bone marrow issues as that is the case with this patient. Dr. Velasquez recommended to transfuse and keep hemoglobin over 8. Patient is right now 8.7. Patient also has component of chronic disease and her transferrin and TIBC's are low. Her iron saturation is only 9% and she is also mildly iron deficient. Plan to give IV dose of iron since she has issues absorbing iron internally in the past. This would recover bone marrow more quickly. Will check for B12 and folate level. Low platelets due to chronic splenomegaly as well and his white blood cells. (8) Diabetes mellitus: -Most recent A1C was 5.1 in Jul 2019. -Using her own insulin pump, sugars are under reasonable control overall, continue current care. Glycemic control per pharmacy (9) HLD (hyperlipidemia): - Continue statin, 10 mg p.o. every other day. (10) HTN (hypertension): -Blood pressure control adequate, continue current. (11) Depression: - Continue Lexapro as prescribed. (12) Right bundle branch block: - H/o RBBB; Pre-op EKG showed known RBBB, otherwise negative. - Follows annually with Dr. Israel (cardiology in [place]). Follow-up with Dr. Israel after discharge (13) DVT prophylaxis: - SCDs; hold pharmacologic ppx for procedure. Dispo: Stable for MedSurg, once pain control with mobility is better, and once pneumonia is improving, then we can start to look towards SNF with a rehab emphasis. Subjective Patient seen and examined at the bedside. Afebrile, slowly improving. Patient is still physically very weak and unable to transfer on her own to the wheelchair. Continue progressing with physical therapy. Hemoglobin now stable at 8.7. after fourth unit of blood in the past several days. Will reassess again if patient need another unit of PRBC tomorrow. Fecal occult blood negative. Patient denies fever chills, chest pain, shortness of breath, abdominal pain, frequency, urgency, hemoptysis, hematuria, dysuria, nausea, vomiting, near-syncope or syncope. Review of Systems Review of Systems: All systems reviewed & are unremarkable except as noted in HPI & below Physical Exam Constitutional: WD/WN, vitals as above well developed Eyes: PERRL, conjunctivae normal, anicteric sclerae ENMT: external ear and nose normal, oropharynx normal Neck: trachea midline, no thyromegaly Respiratory: normal respiratory effort, lungs clear to auscultation Cardiovascular: RRR, no murmur, no edema Gastrointestinal (Abdomen): normal bowel sounds, soft, nontender, no hepatosplenomegaly Skin: no rashes, warm and dry Neurologic: patellar DTR's 2+ bilat, sensation intact Genitourinary: no vaginal lesions, no adnexal mass Lymphatic: no cervical or axillary lymphadenopathy Results & Data Vital Signs (Past 12 Hours) Vital Signs Temp Pulse Resp BP Pulse Ox 08/22/19 07:21 36.8 C 98 H 16 142/75 H 96 08/21/19 21:15 36.6 C 100 H 16 140/63 93 PG Care Time/CCT Total # of Minutes Spent Total Time Spent with Patient: Total time spent is greater than 50% in coordination of care (as documented) at patient's floor/unit and/or counseling patient: (1) Anemia Anemia type: unspecified type Qualified Code(s): D64.9 - Anemia, unspecified (2) Closed fracture of left elbow Encounter type: initial encounter Qualified Code(s): S42.402A - Unspecified fracture of lower end of left humerus, initial encounter for closed fracture (3) Closed fracture of left distal femur Encounter type: initial encounter Fracture morphology: unspecified fracture morphology Qualified Code(s): S72.402A - Unspecified fracture of lower end of left femur, initial encounter for closed fracture (4) Fall Encounter type: initial encounter Qualified Code(s): W19.XXXA - Unspecified fall, initial encounter
[2019-08-22] MEDS: DOCUSATE SODIUM 100 MG CAP PO SCH (08:08)
[2019-08-22] MEDS: OXYCODONE HCL IR 5 MG TAB (IMMEDIATE RELEASE) PO PRN ×2 (08:15→23:54)
[2019-08-22 08:30] LABS: Folate (Folic Acid) 13.83 ng/ml (>5.38)
[2019-08-22] MEDS: ESCITALOPRAM OXALATE 10 MG TAB PO SCH (09:28)
[2019-08-22] MEDS: guaiFENesin 600 MG TABCR PO SCH ×2 (09:28→20:53)
[2019-08-22] MEDS: predniSONE 20 MG TAB PO SCH (09:28)
[2019-08-22] MEDS: PANTOprazole 40 MG TAB PO SCH (09:28)
[2019-08-22] MEDS: METOPROLOL SUCC 25MG EXT REL TAB PO SCH ×2 (09:28→10:19)
[2019-08-22] MEDS: TOLTERODINE TARTRATE 2 MG TAB PO SCH ×2 (09:28→20:53)
[2019-08-22] MEDS: ATORVASTATIN 10 MG TAB PO SCH (09:28)
[2019-08-22] MEDS: FLUTICASONE/SALMETEROL 250/50 (ADVAIR) 14 PUFF/1 INHALER INH SCH ×2 (09:28→20:52)
[2019-08-22] MEDS: MIRABEGRON ER 25 MG TAB PO SCH (09:28)
[2019-08-22] MEDS: DOXYCYCLINE HYCLATE 100 MG CAP PO SCH ×2 (09:29→20:53)
[2019-08-22] MEDS: BRIMONIDINE TARTRATE-P 0.15% 5 ML BTL OP SCH ×2 (09:29→20:53)
[2019-08-22] MEDS: INSULIN ASPART 100 UNITS/ML 3 ML PEN SC SCH ×4 (09:35→20:56)
[2019-08-22] MEDS: cefTRIAXone SODIUM 2,000 MG in DEXTROSE 5% 50 ML IV SCH (09:55)
[2019-08-22] MEDS: LATANOPROST 0.005% OP SOLN 2.5 ML BTL OPB SCH ×2 (10:49→20:53)
[2019-08-22] MEDS: INSULIN GLARGINE SOLOSTAR 100 UNITS/ML 3 ML PEN SC SCH (20:55)
[2019-08-23 05:56] LABS: Basophils # (auto) 0.01 K/uL (0-0.2); Basophils % (auto) 0.2 %; Eosinophils # (auto) 0.02 K/uL (0-0.5); Eosinophils % (auto) 0.3 %; Hematocrit (blood only) 27.7 % (37-47); Hemoglobin 8.8 g/dL (12.0-16.0); Immature Granulocytes # (auto) 0.25 K/uL (0.00-0.02); Immature Granulocytes % (auto) 4.2 %; Lymphocytes # (auto) 0.89 K/uL (1.2-3.4); Mean Corpuscular Hemoglobin 30.2 pg (25-34); Mean Corpuscular Hgb Conc 31.8 g/dL (32-36); Mean Corpuscular Volume 95.2 fL (80-100); Mean Platelet Volume 9.1 fL (7.4-10.4); Monocytes # (auto) 0.44 K/uL (0.11-0.59); Monocytes % (auto) 7.4 %; Neutrophils # (auto) 4.31 K/uL (1.4-6.5); Neutrophils % (auto) 72.9 %; Platelet Count 154 K/uL (130-400); RDW Coefficient of Variation 15.1 % (11.5-14.5); Red Blood Count 2.91 M/uL (4.2-5.4); White Blood Count 5.92 K/uL (4.8-10.8)
[2019-08-23] MEDS: ACETAMINOPHEN SOL 650 MG/20.3 ML UDC PO SCH ×3 (06:11→18:23)
[2019-08-23 06:46] LABS: Albumin Level 2.5 gm/dl (3.4-5.0); BUN Creatinine Ratio 27.6 (10-20); Calcium 8.3 mg/dl (8.5-10.1); Creatinine Clr Calc Pharmacy 72.4 ml/min; Est GFR (Non-African American) 73.3; Potassium 3.6 mmol/L (3.5-5.1)
[2019-08-23 06:49] LABS: Albumin Globulin Ratio 0.8 (0.9-2); Bilirubin,Total 0.8 mg/dl (0.2-1); Globulin 3.3 gm/dl (2.5-4.0); Total Protein 5.8 gm/dl (6.4-8.2)
[2019-08-23] MEDS: ALBUT/IPRATROP 3MG/0.5MG NEB 3 ML VIAL NEB SCH (07:58)
[2019-08-23] MEDS: INSULIN ASPART 100 UNITS/ML 3 ML PEN SC SCH ×4 (09:06→20:39)
[2019-08-23] MEDS: TOLTERODINE TARTRATE 2 MG TAB PO SCH ×2 (09:07→20:34)
[2019-08-23] MEDS: METOPROLOL SUCC 25MG EXT REL TAB PO SCH (09:07)
[2019-08-23] MEDS: FLUTICASONE/SALMETEROL 250/50 (ADVAIR) 14 PUFF/1 INHALER INH SCH ×2 (09:07→20:33)
[2019-08-23] MEDS: predniSONE 20 MG TAB PO SCH (09:07)
[2019-08-23] MEDS: MIRABEGRON ER 25 MG TAB PO SCH (09:07)
[2019-08-23] MEDS: PANTOprazole 40 MG TAB PO SCH (09:07)
[2019-08-23] MEDS: guaiFENesin 600 MG TABCR PO SCH ×2 (09:07→20:34)
[2019-08-23] MEDS: ESCITALOPRAM OXALATE 10 MG TAB PO SCH (09:07)
[2019-08-23] MEDS: DOXYCYCLINE HYCLATE 100 MG CAP PO SCH ×2 (09:07→20:34)
[2019-08-23] MEDS: BRIMONIDINE TARTRATE-P 0.15% 5 ML BTL OP SCH ×2 (09:08→18:24)
[2019-08-23] MEDS: cefTRIAXone SODIUM 2,000 MG in DEXTROSE 5% 50 ML IV SCH (10:05)
[2019-08-23] MEDS ORDERED: ALBUT/IPRATROP 3MG/0.5MG NEB 3 ML VIAL NEB PRN (10:24)
--- NOTE | 2019-08-23 10:56 | Hospitalist Progress Note ---
Date of Service August 23, 2019 Assessment & Plan (1) Closed fracture of left distal femur: -Now postop, pain control seems more reasonable, continue to titrate. PT/OT ongoing eval and treat. SNF/rehab after discharge (2) Closed fracture of left elbow: -Same as above (3) Healthcare-associated pneumonia: Fever resolved. Upper respiratory symptoms a little bit of lung findings on exam suspicious chest x-ray and elevated CRP/procalcitonin. MRSA nares negative, no need for MRSA coverage. Continue empiric ceftriaxone for possible pneumonia and added doxycycline 100 mg p.o. twice daily, as other than being in the hospital and a well-controlled diabetic, she seems to be fairly low risk for Pseudomonas. Follow closely. (4) Fall: -Likely mechanical fall; no indication for cardiac work up. -Ongoing PT/OT eval and treat. (5) Osteoporosis: Given the rather significant trauma from what appeared to be a moderate at worst mechanical fall, could be due to osteoporosis she is following actively with endocrinology who has been managing things aggressively, discussed with her that anticipate the need to escalate treatment further to something such as Prolia or Forteo, will obviously defer to endocrine in this regard, but will definitely want to ensure she has close endocrine follow-up after discharge. (6) Effusion of knee joint, left: - In setting of fall/acute fracture. (7) Anemia: Appreciate Dr. Velasquez recommendations. Patient anemia almost certainly related to her recent surgery. Postoperative anemia can take several days to not dinner and after 2 weeks to recover. This time frame can be delayed further in the urgently and in those with underlining bone marrow issues as that is the case with this patient. Dr. Velasquez recommended to transfuse and keep hemoglobin over 8. Patient is right now 8.7. Patient also has component of chronic disease and her transferrin and TIBC's are low. Her iron saturation is only 9% and she is also mildly iron deficient. Plan to give IV dose of iron since she has issues absorbing iron internally in the past. This would recover bone marrow more quickly. Will check for B12 and folate level. Low platelets due to chronic splenomegaly as well and his white blood cells. (8) Diabetes mellitus: -Most recent A1C was 5.1 in Jul 2019. -Using her own insulin pump, sugars are under reasonable control overall, continue current care. Glycemic control per pharmacy (9) HLD (hyperlipidemia): - Continue statin, 10 mg p.o. every other day. (10) HTN (hypertension): -Blood pressure control adequate, continue current. (11) Depression: - Continue Lexapro as prescribed. (12) Right bundle branch block: - H/o RBBB; Pre-op EKG showed known RBBB, otherwise negative. - Follows annually with Dr. Israel (cardiology in [place]). Follow-up with Dr. Israel after discharge (13) DVT prophylaxis: - SCDs; hold pharmacologic ppx for procedure. Dispo: Stable for MedSurg, once pain control with mobility is better, and once pneumonia is improving, then we can start to look towards SNF with a rehab emphasis. Subjective Patient seen and examined at the bedside. Afebrile, slowly improving. Patient is still physically very weak and unable to transfer on her own to the wheelchair. Continue progressing with physical therapy. Hemoglobin now stable at 8.8. after fourth unit of blood in the past several days. Fecal occult blood negative. Patient denies fever chills, chest pain, shortness of breath, abdominal pain, frequency, urgency, hemoptysis, hematuria, dysuria, nausea, vomiting, near-syncope or syncope. Review of Systems Review of Systems: All systems reviewed & are unremarkable except as noted in HPI & below Physical Exam Constitutional: WD/WN, vitals as above well developed Eyes: PERRL, conjunctivae normal, anicteric sclerae ENMT: external ear and nose normal, oropharynx normal Neck: trachea midline, no thyromegaly Respiratory: normal respiratory effort, lungs clear to auscultation Cardiovascular: RRR, no murmur, no edema Gastrointestinal (Abdomen): normal bowel sounds, soft, nontender, no hepatosplenomegaly Skin: no rashes, warm and dry Neurologic: patellar DTR's 2+ bilat, sensation intact Genitourinary: no vaginal lesions, no adnexal mass Lymphatic: no cervical or axillary lymphadenopathy Results & Data Vital Signs (Past 12 Hours) Vital Signs Temp Pulse Resp BP Pulse Ox 08/23/19 08:00 88 18 94 08/23/19 07:35 36.8 C 93 H 18 143/68 H 94 08/22/19 23:41 37.2 C 98 H 17 149/73 H 93 PG Care Time/CCT Total # of Minutes Spent Total Time Spent with Patient: Total time spent is greater than 50% in coordination of care (as documented) at patient's floor/unit and/or counseling patient: (1) Anemia Anemia type: unspecified type Qualified Code(s): D64.9 - Anemia, unspecified (2) Closed fracture of left elbow Encounter type: initial encounter Qualified Code(s): S42.402A - Unspecified fracture of lower end of left humerus, initial encounter for closed fracture (3) Closed fracture of left distal femur Encounter type: initial encounter Fracture morphology: unspecified fracture morphology Qualified Code(s): S72.402A - Unspecified fracture of lower end of left femur, initial encounter for closed fracture (4) Fall Encounter type: initial encounter Qualified Code(s): W19.XXXA - Unspecified fall, initial encounter
[2019-08-23] MEDS ORDERED: POTASSIUM CHLORIDE 20 MEQ TABCR PO STA (10:58)
--- NOTE | 2019-08-23 17:01 | Pharmacy Report ---
Pharmacy Glycemic Short Note 2 - Date of Service August 23, 2019 - Glycemic Short BSG Results (Last 24 hours): 08/22/19 08/22/19 08/23/19 17:11 20:41 04:16 Glucose POC Glucose 175 H 148 H 95 08/23/19 08/23/19 08/23/19 04:56 08:16 11:58 Glucose 102 H POC Glucose 86 168 H OUTPATIENT ANTIDIABETIC REGIMEN: * Novolog insulin pump: * Basal settings: 4932-1263 1 unit/hr, 0757-9445 1.2 units/hr (28.2units/day) * Bolus settings: 1:10 (5028-2158), 1:8 (6698-0183), 1:6 (8487-8423) plus CF:25 with BG goal of 110-130. * A1c = 5.1 % 07/17/19 - A1c value falsely low d/t pt is a very slow glycosolator. Therefore BG values are a better indicator of overall BG control. Risk Factors for Insulin Resistance: * Steroids: Solu-medrol 40mg IV BID (started 08/20 AM, last dose this AM), then Prednisone 20mg PO Daily starting tomorrow morning * Infection: Doxycycline PO + Ceftriaxone IV * Recent Surgery: POD 5, Closed fracture of left distal femur, status post ORIF left distal femur fracture * Diet: T1DM ASSESSMENT: 08/23 * Patient with significant improvement in glycemic control after solu medrol was transitioned to once daily prednisone * She received 62 units of insulin yesterday * Novolog parameters were loosened 08/22 PM to account for change in steroids * May need to further decrease Lantus on 08/24 if BSG remains < 100 mg/dL 08/21 * Blood sugars in the 200s once IV solu-medrol started yesterday, despite extra Lantus dose and tightening CF and CR, this mornings dose will be her last dose, then changing to Prednisone tomorrow. * Will give another extra Lantus dose this morning and tighten CF and CR further while on IV steroids, will need to loosen as steroids are tapered off. 08/20 * BSGs were well controlled over the last 24 hrs, BSGs have ranged 141-175 * Fasting BSG 141 this AM with 25 units Lantus on board * High dose IV steroids added this AM. * Will proactively increase both basal and bolus insulin doses as needs will likely increase substantially. New basal dose will be based on weight and "moderate" stress level. CF and CR dosing will be based upon wt and "severe" stress level 08/19 * 79 year old, POD 3 ORIF left distal femur fracture, Type 2 diabetic managed on Novolog insulin pump, settings as above, patient was managing blood sugar on her own pump 08/16-08/18, but does not have more tubing supplies as inpatient and was changed to basal bolus last night. Pharmacy consulted this morning for management. * Patient had Lantus 30 units x 1 last night, will continue Lantus HS dosing based on scale * Will tighten CF and CR to be similar to pump settings. PLAN FOR INPATIENT GLYCEMIC CONTROL: * Hold insulin pump - supplies not available to use and steroids will greatly change requirements * Basal insulin * Lantus Q HS per scale: * 25 units if BSG less than 180 * 30 units if BSG > 180 * Bolus insulin * NovoLog per scale ACHS * Goal Range: Low 110 mg/dL - High 140 mg/dL * tighten: Correction Factor: 18 mg/dL/unit * tighten: Nutritional / Prandial insulin per carb ratio of 1 unit per 6 grams CHO consumed PLAN FOR DISCHARGE: * may resume insulin pump on discharge per home settings with close f/u with endocrinology and PCP
[2019-08-23] MEDS: LATANOPROST 0.005% OP SOLN 2.5 ML BTL OPB SCH (20:34)
[2019-08-23] MEDS: INSULIN GLARGINE SOLOSTAR 100 UNITS/ML 3 ML PEN SC SCH (20:38)
[2019-08-24] MEDS: OXYCODONE HCL IR 5 MG TAB (IMMEDIATE RELEASE) PO PRN ×2 (00:18→11:26)
[2019-08-24] MEDS: ACETAMINOPHEN SOL 650 MG/20.3 ML UDC PO SCH ×2 (00:21→06:08)
[2019-08-24] MEDS: MIRABEGRON ER 25 MG TAB PO SCH (08:39)
[2019-08-24] MEDS: FLUTICASONE/SALMETEROL 250/50 (ADVAIR) 14 PUFF/1 INHALER INH SCH ×2 (08:39→20:14)
[2019-08-24] MEDS: DOXYCYCLINE HYCLATE 100 MG CAP PO SCH ×2 (08:39→20:17)
[2019-08-24] MEDS: PANTOprazole 40 MG TAB PO SCH (08:40)
[2019-08-24] MEDS: ATORVASTATIN 10 MG TAB PO SCH (08:40)
[2019-08-24] MEDS: METOPROLOL SUCC 25MG EXT REL TAB PO SCH (08:40)
[2019-08-24] MEDS: guaiFENesin 600 MG TABCR PO SCH ×2 (08:40→20:18)
[2019-08-24] MEDS: ESCITALOPRAM OXALATE 10 MG TAB PO SCH (08:40)
[2019-08-24] MEDS: TOLTERODINE TARTRATE 2 MG TAB PO SCH ×2 (08:41→20:18)
[2019-08-24] MEDS: predniSONE 20 MG TAB PO SCH (08:41)
[2019-08-24] MEDS: BRIMONIDINE TARTRATE-P 0.15% 5 ML BTL OP SCH ×2 (08:41→20:15)
[2019-08-24] MEDS: INSULIN ASPART 100 UNITS/ML 3 ML PEN SC SCH ×3 (08:48→18:13)
[2019-08-24 09:11] LABS: Hematocrit (blood only) 30.3 % (37-47); Hemoglobin 9.6 g/dL (12.0-16.0); Mean Corpuscular Hemoglobin 30.2 pg (25-34); Mean Corpuscular Volume 95.3 fL (80-100); Mean Platelet Volume 8.9 fL (7.4-10.4); Platelet Count 145 K/uL (130-400); Red Blood Count 3.18 M/uL (4.2-5.4); White Blood Count 5.81 K/uL (4.8-10.8)
[2019-08-24 09:15] LABS: Mean Corpuscular Hgb Conc 31.7 g/dL (32-36)
[2019-08-24 09:27] LABS: Albumin Level 2.6 gm/dl (3.4-5.0); Calcium 8.6 mg/dl (8.5-10.1); Creatinine Clr Calc Pharmacy 72.4 ml/min; Est GFR (Non-African American) 73.3; Potassium 3.8 mmol/L (3.5-5.1)
[2019-08-24 09:31] LABS: Albumin Globulin Ratio 0.8 (0.9-2); Bilirubin,Total 0.9 mg/dl (0.2-1); Globulin 3.3 gm/dl (2.5-4.0); Total Protein 5.9 gm/dl (6.4-8.2)
--- NOTE | 2019-08-24 09:55 | Pharmacy Report ---
Pharmacy Glycemic Short Note 2 - Date of Service August 24, 2019 - Glycemic Short BSG Results (Last 24 hours): 08/23/19 08/23/19 08/23/19 11:58 17:17 20:24 Glucose POC Glucose 168 H 230 H 163 H 08/24/19 08/24/19 08/24/19 04:01 08:08 08:58 Glucose 172 H POC Glucose 97 100 H OUTPATIENT ANTIDIABETIC REGIMEN: * Novolog insulin pump: * Basal settings: 1704-1216 1 unit/hr, 7004-5944 1.2 units/hr (28.2units/day) * Bolus settings: 1:10 (2309-8010), 1:8 (4975-8516), 1:6 (6577-2569) plus CF:25 with BG goal of 110-130. * A1c = 5.1 % 07/17/19 - A1c value falsely low d/t pt is a very slow glycosolator. Therefore BG values are a better indicator of overall BG control. Risk Factors for Insulin Resistance: * Steroids: Solu-medrol 40mg IV BID (started 08/20 AM, last dose this AM), then Prednisone 20mg PO Daily starting tomorrow morning * Infection: Doxycycline PO + Ceftriaxone IV * Recent Surgery: POD 5, Closed fracture of left distal femur, status post ORIF left distal femur fracture * Diet: T1DM ASSESSMENT: 08/24 * Nichol bustamante'daniel 61 units of insulin yesterday (25 of this being basal) * She requested an overnight BSG check, which was 97 mg/dL. Current basal dose is appropriate but will loosen HS Novolog parameters since the once daily prednisone would be wearing off at this point. * Postprandial BSGs were elevated yesterday; therefore, will tighten CR * Plan is for SNF w/ rehab upon discharge. Will continue to follow to determine when insulin pump can be resumed. 08/23 * Patient with significant improvement in glycemic control after solu medrol was transitioned to once daily prednisone * She received 62 units of insulin yesterday * Novolog parameters were loosened 08/22 PM to account for change in steroids * May need to further decrease Lantus on 08/24 if BSG remains < 100 mg/dL 08/21 * Blood sugars in the 200s once IV solu-medrol started yesterday, despite extra Lantus dose and tightening CF and CR, this mornings dose will be her last dose, then changing to Prednisone tomorrow. * Will give another extra Lantus dose this morning and tighten CF and CR further while on IV steroids, will need to loosen as steroids are tapered off. 08/20 * BSGs were well controlled over the last 24 hrs, BSGs have ranged 141-175 * Fasting BSG 141 this AM with 25 units Lantus on board * High dose IV steroids added this AM. * Will proactively increase both basal and bolus insulin doses as needs will likely increase substantially. New basal dose will be based on weight and "moderate" stress level. CF and CR dosing will be based upon wt and "severe" stress level 08/19 * 79 year old, POD 3 ORIF left distal femur fracture, Type 2 diabetic managed on Novolog insulin pump, settings as above, patient was managing blood sugar on her own pump 08/16-08/18, but does not have more tubing supplies as inpatient and was changed to basal bolus last night. Pharmacy consulted this morning for management. * Patient had Lantus 30 units x 1 last night, will continue Lantus HS dosing based on scale * Will tighten CF and CR to be similar to pump settings. PLAN FOR INPATIENT GLYCEMIC CONTROL: * Hold insulin pump - supplies not available to use and steroids will greatly change prandial requirements * Basal insulin - change to set dose instead of a scale * Lantus 25 units qHS * Bolus insulin * NovoLog per scale AC - tighten CR * Goal Range: Low 110 mg/dL - High 140 mg/dL * Correction Factor: 18 mg/dL/unit * Nutritional / Prandial insulin per carb ratio of 1 unit per 5 grams CHO consumed * Novolog per scale HS - loosen parameters * Correction Factor: 30 mg/dL/unit * Nutritional / Prandial insulin per carb ratio of 1 unit per 8 grams CHO consumed PLAN FOR DISCHARGE: * may resume insulin pump on discharge per home settings with close f/u with endocrinology and PCP
[2019-08-24] MEDS: cefTRIAXone SODIUM 2,000 MG in DEXTROSE 5% 50 ML IV SCH (10:46)
[2019-08-24] MEDS: ACETAMINOPHEN 325 MG TAB PO SCH ×2 (12:04→18:14)
--- NOTE | 2019-08-24 17:27 | Hospitalist Progress Note ---
Date of Service August 24, 2019 Assessment & Plan (1) Closed fracture of left distal femur: -Now postop, pain control seems more reasonable, continue to titrate. PT/OT ongoing eval and treat. SNF/rehab after discharge (2) Closed fracture of left elbow: -Same as above (3) Healthcare-associated pneumonia: Fever resolved. Upper respiratory symptoms a little bit of lung findings on exam suspicious chest x-ray and elevated CRP/procalcitonin. MRSA nares negative, no need for MRSA coverage. Continue empiric ceftriaxone for possible pneumonia and added doxycycline 100 mg p.o. twice daily, as other than being in the hospital and a well-controlled diabetic, she seems to be fairly low risk for Pseudomonas. Follow closely. (4) Fall: -Likely mechanical fall; no indication for cardiac work up. -Ongoing PT/OT eval and treat. (5) Osteoporosis: Given the rather significant trauma from what appeared to be a moderate at worst mechanical fall, could be due to osteoporosis she is following actively with endocrinology who has been managing things aggressively, discussed with her that anticipate the need to escalate treatment further to something such as Prolia or Forteo, will obviously defer to endocrine in this regard, but will definitely want to ensure she has close endocrine follow-up after discharge. (6) Effusion of knee joint, left: - In setting of fall/acute fracture. (7) Anemia: Appreciate Dr. Velasquez recommendations. Patient anemia almost certainly related to her recent surgery. Postoperative anemia can take several days to not dinner and after 2 weeks to recover. This time frame can be delayed further in the urgently and in those with underlining bone marrow issues as that is the case with this patient. Dr. Velasquez recommended to transfuse and keep hemoglobin over 8. Patient is right now 9.6. Patient also has component of chronic disease and her transferrin and TIBC's are low. Her iron saturation is only 9% and she is also mildly iron deficient. Plan to give IV dose of iron since she has issues absorbing iron internally in the past. This would recover bone marrow more quickly. Will check for B12 and folate level. Low platelets due to chronic splenomegaly as well and his white blood cells. (8) Diabetes mellitus: -Most recent A1C was 5.1 in Jul 2019. -Using her own insulin pump, sugars are under reasonable control overall, continue current care. Glycemic control per pharmacy (9) HLD (hyperlipidemia): - Continue statin, 10 mg p.o. every other day. (10) HTN (hypertension): -Blood pressure control adequate, continue current. (11) Depression: - Continue Lexapro as prescribed. (12) Right bundle branch block: - H/o RBBB; Pre-op EKG showed known RBBB, otherwise negative. - Follows annually with Dr. Israel (cardiology in [place]). Follow-up with Dr. Israel after discharge (13) DVT prophylaxis: - SCDs; hold pharmacologic ppx for procedure. Dispo: Stable for MedSurg, once pain control with mobility is better, and once pneumonia is improving, then we can start to look towards SNF with a rehab emphasis. Subjective Patient seen and examined at the bedside. Afebrile, slowly improving. Patient is still physically very weak and unable to transfer on her own to the wheelchair. Continue progressing with physical therapy. Hemoglobin now stable at 9.6. Patient denies fever chills, chest pain, shortness of breath, abdominal pain, frequency, urgency, hemoptysis, hematuria, dysuria, nausea, vomiting, near-syncope or syncope. Review of Systems Review of Systems: All systems reviewed & are unremarkable except as noted in HPI & below Physical Exam Constitutional: WD/WN, vitals as above well developed Eyes: PERRL, conjunctivae normal, anicteric sclerae ENMT: external ear and nose normal, oropharynx normal Neck: trachea midline, no thyromegaly Respiratory: normal respiratory effort, lungs clear to auscultation Cardiovascular: RRR, no murmur, no edema Gastrointestinal (Abdomen): normal bowel sounds, soft, nontender, no hepatosplenomegaly Skin: no rashes, warm and dry Neurologic: patellar DTR's 2+ bilat, sensation intact Genitourinary: no vaginal lesions, no adnexal mass Lymphatic: no cervical or axillary lymphadenopathy Results & Data Vital Signs (Past 12 Hours) Vital Signs Temp Pulse Resp BP Pulse Ox 08/24/19 15:08 36.9 C 89 18 143/77 H 93 08/24/19 07:44 37.0 C 95 H 16 158/72 H 91 PG Care Time/CCT Total # of Minutes Spent Total Time Spent with Patient: Total time spent is greater than 50% in coordination of care (as documented) at patient's floor/unit and/or counseling patient: (1) Closed fracture of left distal femur Encounter type: initial encounter Fracture morphology: unspecified fracture morphology Qualified Code(s): S72.402A - Unspecified fracture of lower end of left femur, initial encounter for closed fracture (2) Closed fracture of left elbow Encounter type: initial encounter Qualified Code(s): S42.402A - Unspecified fracture of lower end of left humerus, initial encounter for closed fracture (3) Fall Encounter type: initial encounter Qualified Code(s): W19.XXXA - Unspecified fall, initial encounter (4) Anemia Anemia type: unspecified type Qualified Code(s): D64.9 - Anemia, unspecified
[2019-08-24] MEDS: FERROUS FUMARATE/ASCORBIC ACID 65 MG CAPCR PO SCH (18:52)
[2019-08-24] MEDS: LATANOPROST 0.005% OP SOLN 2.5 ML BTL OPB SCH (20:16)
[2019-08-24] MEDS ORDERED: INSULIN ASPART 100 UNITS/ML 3 ML PEN SC SCH (21:00)
[2019-08-24] MEDS ORDERED: INSULIN GLARGINE SOLOSTAR 100 UNITS/ML 3 ML PEN SC SCH (21:00)
[2019-08-25] MEDS: ACETAMINOPHEN 325 MG TAB PO SCH ×4 (00:07→17:57)
[2019-08-25 04:55] LABS: Basophils # (auto) 0.01 K/uL (0-0.2); Basophils % (auto) 0.2 %; Eosinophils # (auto) 0.03 K/uL (0-0.5); Eosinophils % (auto) 0.5 %; Hematocrit (blood only) 29.2 % (37-47); Hemoglobin 9.5 g/dL (12.0-16.0); Immature Granulocytes # (auto) 0.22 K/uL (0.00-0.02); Immature Granulocytes % (auto) 3.9 %; Lymphocytes # (auto) 0.73 K/uL (1.2-3.4); Lymphocytes % (auto) 12.8 %; Mean Corpuscular Hemoglobin 30.4 pg (25-34); Mean Corpuscular Hgb Conc 32.5 g/dL (32-36); Mean Corpuscular Volume 93.3 fL (80-100); Mean Platelet Volume 8.9 fL (7.4-10.4); Monocytes # (auto) 0.39 K/uL (0.11-0.59); Monocytes % (auto) 6.8 %; Neutrophils # (auto) 4.32 K/uL (1.4-6.5); Neutrophils % (auto) 75.8 %; Nucleated RBC # (auto) 0.02 K/uL (0-0); Nucleated RBC % (auto) 0.4 %; Platelet Count 150 K/uL (130-400); RDW Standard Deviation 50.2 fL (36.4-46.3); Red Blood Count 3.13 M/uL (4.2-5.4)
[2019-08-25 05:24] LABS: Albumin Level 2.6 gm/dl (3.4-5.0); BUN Creatinine Ratio 23.1 (10-20); Calcium 8.5 mg/dl (8.5-10.1); Creatinine Clr Calc Pharmacy 73.4 ml/min; Est GFR (African American) 86.3; Est GFR (Non-African American) 74.5; Potassium 3.6 mmol/L (3.5-5.1)
[2019-08-25 05:26] LABS: Albumin Globulin Ratio 0.8 (0.9-2); Globulin 3.2 gm/dl (2.5-4.0); Total Protein 5.8 gm/dl (6.4-8.2)
[2019-08-25] MEDS: FLUTICASONE/SALMETEROL 250/50 (ADVAIR) 14 PUFF/1 INHALER INH SCH ×2 (07:59→21:05)
[2019-08-25] MEDS: BRIMONIDINE TARTRATE-P 0.15% 5 ML BTL OP SCH ×2 (07:59→21:04)
[2019-08-25] MEDS: guaiFENesin 600 MG TABCR PO SCH ×2 (08:00→21:03)
[2019-08-25] MEDS: DOXYCYCLINE HYCLATE 100 MG CAP PO SCH ×2 (08:00→21:03)
[2019-08-25] MEDS: TOLTERODINE TARTRATE 2 MG TAB PO SCH ×2 (08:01→21:05)
[2019-08-25] MEDS: FERROUS FUMARATE/ASCORBIC ACID 65 MG CAPCR PO SCH (08:01)
[2019-08-25] MEDS: METOPROLOL SUCC 25MG EXT REL TAB PO SCH (08:01)
[2019-08-25] MEDS: PANTOprazole 40 MG TAB PO SCH (08:01)
[2019-08-25] MEDS: predniSONE 20 MG TAB PO SCH (08:01)
[2019-08-25] MEDS: ESCITALOPRAM OXALATE 10 MG TAB PO SCH (08:02)
[2019-08-25] MEDS: MIRABEGRON ER 25 MG TAB PO SCH (08:02)
[2019-08-25] MEDS: INSULIN ASPART 100 UNITS/ML 3 ML PEN SC SCH ×2 (09:18→13:00)
[2019-08-25] MEDS: cefTRIAXone SODIUM 2,000 MG in DEXTROSE 5% 50 ML IV SCH (09:19)
--- NOTE | 2019-08-25 10:19 | Pharmacy Report ---
Pharmacy Glycemic Short Note 2 - Date of Service August 25, 2019 - Glycemic Short BSG Results (Last 24 hours): 08/24/19 08/24/19 08/24/19 12:07 17:11 20:51 Glucose POC Glucose 157 H 156 H 137 H 08/25/19 08/25/19 08/25/19 03:57 04:45 08:08 Glucose 105 H POC Glucose 112 H 102 H OUTPATIENT ANTIDIABETIC REGIMEN: * Novolog insulin pump: * Basal settings: 1359-2296 1 unit/hr, 6043-5291 1.2 units/hr (28.2units/day) * Bolus settings: 1:10 (8223-9295), 1:8 (6205-6908), 1:6 (4791-1533) plus CF:25 with BG goal of 110-130. * A1c = 5.1 % 07/17/19 - A1c value falsely low d/t pt is a very slow glycosolator. Therefore BG values are a better indicator of overall BG control. Risk Factors for Insulin Resistance: * Steroids: Prednisone 20 mg daily (last dose 08/26) * Infection: Doxycycline PO + Ceftriaxone IV * Diet: T1DM ASSESSMENT: 08/25 * Nichol's BSGs continue to remain stable on basal/bolus SQ injections while on once daily prednisone * She will receive her last dose of prednisone tomorrow AM * Discharge plan is still for SNF w/ rehab, which was potentially going to happen today so insulin pump was resumed. Patient to now go to SNF tomorrow and is okay to be on her pump there. * Dorota, CYNDEE, and I assisted patient with resuming her insulin pump ~1515 today. She has already signed the insulin pump agreement and will be provided with a new flowsheet. * She still has some basal on board from last night's Lantus but I instructed her to continue with her basal rate on her pump since she will receive less bolus insulin from her pump compared to CR that has been used to account for the prednisone. * Her last dose of prednisone will be tomorrow AM. Pharmacist to reassess tomorrow if basal should be increased. Patient recalls increasing by 25% in the past when on prednisone. This seems reasonable to me. Would recommend only doing this for 12 hours though. 08/24 * Nichol rec'd 61 units of insulin yesterday (25 of this being basal) * She requested an overnight BSG check, which was 97 mg/dL. Current basal dose is appropriate but will loosen HS Novolog parameters since the once daily prednisone would be wearing off at this point. * Postprandial BSGs were elevated yesterday; therefore, will tighten CR * Plan is for SNF w/ rehab upon discharge. Will continue to follow to determine when insulin pump can be resumed. 08/23 * Patient with significant improvement in glycemic control after solu medrol was transitioned to once daily prednisone * She received 62 units of insulin yesterday * Novolog parameters were loosened 08/22 PM to account for change in steroids * May need to further decrease Lantus on 08/24 if BSG remains < 100 mg/dL 08/21 * Blood sugars in the 200s once IV solu-medrol started yesterday, despite extra Lantus dose and tightening CF and CR, this mornings dose will be her last dose, then changing to Prednisone tomorrow. * Will give another extra Lantus dose this morning and tighten CF and CR further while on IV steroids, will need to loosen as steroids are tapered off. 08/20 * BSGs were well controlled over the last 24 hrs, BSGs have ranged 141-175 * Fasting BSG 141 this AM with 25 units Lantus on board * High dose IV steroids added this AM. * Will proactively increase both basal and bolus insulin doses as needs will likely increase substantially. New basal dose will be based on weight and "moderate" stress level. CF and CR dosing will be based upon wt and "severe" stress level 08/19 * 79 year old, POD 3 ORIF left distal femur fracture, Type 2 diabetic managed on Novolog insulin pump, settings as above, patient was managing blood sugar on her own pump 08/16-08/18, but does not have more tubing supplies as inpatient and was changed to basal bolus last night. Pharmacy consulted this morning for management. * Patient had Lantus 30 units x 1 last night, will continue Lantus HS dosing based on scale * Will tighten CF and CR to be similar to pump settings. PLAN FOR INPATIENT GLYCEMIC CONTROL: * Transitioned back to insulin pump ~1515 today (patient will have ~4-6 hours of overlap with Lantus dose on board but pump will provide less bolus insulin compared to SQ doses) * q4h accuchecks per patient request with resumption of pump * Consider having patient set temp basal tomorrow AM: 25% increase x 12 hours to account for last dose of prednisone PLAN FOR DISCHARGE: * Continue insulin pump on discharge to SNF with close f/u with endocrinology once discharged from there
[2019-08-25] MEDS: OXYCODONE HCL IR 5 MG TAB (IMMEDIATE RELEASE) PO PRN ×2 (16:00→20:18)
--- NOTE | 2019-08-25 17:37 | Hospitalist Progress Note ---
Date of Service August 25, 2019 Assessment & Plan (1) Closed fracture of left distal femur: -Now postop, pain control seems more reasonable, continue to titrate. PT/OT ongoing eval and treat. SNF/rehab waiting on the acceptance. (2) Closed fracture of left elbow: -Same as above (3) Healthcare-associated pneumonia: Fever resolved. Upper respiratory symptoms a little bit of lung findings on exam suspicious chest x-ray and elevated CRP/procalcitonin. MRSA nares negative, no need for MRSA coverage. Continue empiric ceftriaxone for possible pneumonia and added doxycycline 100 mg p.o. twice daily, as other than being in the hospital and a well-controlled diabetic, she seems to be fairly low risk for Pseudomonas. Follow closely. (4) Fall: -Likely mechanical fall; no indication for cardiac work up. -Ongoing PT/OT eval and treat. (5) Osteoporosis: Given the rather significant trauma from what appeared to be a moderate at worst mechanical fall, could be due to osteoporosis she is following actively with endocrinology who has been managing things aggressively, discussed with her that anticipate the need to escalate treatment further to something such as Prolia or Forteo, will obviously defer to endocrine in this regard, but will definitely want to ensure she has close endocrine follow-up after discharge. (6) Effusion of knee joint, left: - In setting of fall/acute fracture. (7) Anemia: Appreciate Dr. Velasquez recommendations. Patient anemia almost certainly related to her recent surgery. Postoperative anemia can take several days to not dinner and after 2 weeks to recover. This time frame can be delayed further in the urgently and in those with underlining bone marrow issues as that is the case with this patient. Dr. Velasquez recommended to transfuse and keep hemoglobin over 8. Patient is right now 9.6. Patient also has component of chronic disease and her transferrin and TIBC's are low. Her iron saturation is only 9% and she is also mildly iron deficient. Plan to give IV dose of iron since she has issues absorbing iron internally in the past. This would recover bone marrow more quickly. Will check for B12 and folate level. Low platelets due to chronic splenomegaly as well and his white blood cells. (8) Diabetes mellitus: -Most recent A1C was 5.1 in Jul 2019. -Using her own insulin pump, sugars are under reasonable control overall, cont inue current care. Glycemic control per pharmacy (9) HLD (hyperlipidemia): - Continue statin, 10 mg p.o. every other day. (10) HTN (hypertension): -Blood pressure control adequate, continue current. (11) Depression: - Continue Lexapro as prescribed. (12) Right bundle branch block: - H/o RBBB; Pre-op EKG showed known RBBB, otherwise negative. - Follows annually with Dr. Israel (cardiology in [place]). Follow-up with Dr. Israel after discharge (13) DVT prophylaxis: - SCDs; hold pharmacologic ppx for procedure. Dispo: Stable for MedSurg, once pain control with mobility is better, and once pneumonia is improving, then we can start to look towards SNF with a rehab emphasis. Subjective Patient seen and examined at the bedside. Afebrile, slowly improving. Patient is still physically very weak and unable to transfer on her own to the wheelchair. Continue progressing with physical therapy. Hemoglobin now stable. Patient denies fever chills, chest pain, shortness of breath, abdominal pain, frequency, urgency, hemoptysis, hematuria, dysuria, nausea, vomiting, near- syncope or syncope.Waiting for SNF placement. Review of Systems Review of Systems: All systems reviewed & are unremarkable except as noted in HPI & below Physical Exam Constitutional: WD/WN, vitals as above well developed Eyes: PERRL, conjunctivae normal, anicteric sclerae ENMT: external ear and nose normal, oropharynx normal Neck: trachea midline, no thyromegaly Respiratory: normal respiratory effort, lungs clear to auscultation Cardiovascular: RRR, no murmur, no edema Gastrointestinal (Abdomen): normal bowel sounds, soft, nontender, no hepatosplenomegaly Skin: no rashes, warm and dry Neurologic: patellar DTR's 2+ bilat, sensation intact Genitourinary: no vaginal lesions, no adnexal mass Lymphatic: no cervical or axillary lymphadenopathy Results & Data Vital Signs (Past 12 Hours) Vital Signs Temp Pulse Resp BP Pulse Ox 08/25/19 15:10 36.7 C 90 18 122/70 95 08/25/19 07:24 36.8 C 86 18 139/73 92 PG Care Time/CCT Total # of Minutes Spent Total Time Spent with Patient: Total time spent is greater than 50% in coordination of care (as documented) at patient's floor/unit and/or counseling patient: (1) Closed fracture of left distal femur Encounter type: initial encounter Fracture morphology: unspecified fracture morphology Qualified Code(s): S72.402A - Unspecified fracture of lower end of left femur, initial encounter for closed fracture (2) Closed fracture of left elbow Encounter type: initial encounter Qualified Code(s): S42.402A - Unspecified fracture of lower end of left humerus, initial encounter for closed fracture (3) Fall Encounter type: initial encounter Qualified Code(s): W19.XXXA - Unspecified fall, initial encounter (4) Anemia Anemia type: unspecified type Qualified Code(s): D64.9 - Anemia, unspecified
[2019-08-25] MEDS: NovoLOG INSULIN PUMP SCH ×2 (17:57→20:55)
[2019-08-25] MEDS: LATANOPROST 0.005% OP SOLN 2.5 ML BTL OPB SCH (21:03)
[2019-08-26] MEDS: ACETAMINOPHEN 325 MG TAB PO SCH ×3 (00:12→13:31)
[2019-08-26] MEDS: NovoLOG INSULIN PUMP SCH ×5 (00:14→16:42)
[2019-08-26 06:10] LABS: Basophils # (auto) 0.01 K/uL (0-0.2); Basophils % (auto) 0.2 %; Eosinophils # (auto) 0.04 K/uL (0-0.5); Eosinophils % (auto) 0.7 %; Hematocrit (blood only) 30.3 % (37-47); Hemoglobin 9.5 g/dL (12.0-16.0); Immature Granulocytes # (auto) 0.15 K/uL (0.00-0.02); Immature Granulocytes % (auto) 2.6 %; Lymphocytes # (auto) 0.78 K/uL (1.2-3.4); Lymphocytes % (auto) 13.7 %; Mean Corpuscular Hemoglobin 29.7 pg (25-34); Mean Corpuscular Hgb Conc 31.4 g/dL (32-36); Mean Corpuscular Volume 94.7 fL (80-100); Mean Platelet Volume 9.5 fL (7.4-10.4); Monocytes # (auto) 0.35 K/uL (0.11-0.59); Monocytes % (auto) 6.1 %; Neutrophils # (auto) 4.38 K/uL (1.4-6.5); Neutrophils % (auto) 76.7 %; Platelet Count 155 K/uL (130-400); RDW Coefficient of Variation 15.1 % (11.5-14.5); RDW Standard Deviation 51.2 fL (36.4-46.3); White Blood Count 5.71 K/uL (4.8-10.8)
[2019-08-26 06:46] LABS: Albumin Level 2.7 gm/dl (3.4-5.0); BUN Creatinine Ratio 28.8 (10-20); Calcium 8.5 mg/dl (8.5-10.1); Creatinine Clr Calc Pharmacy 79.6 ml/min; Est GFR (African American) 95.2; Est GFR (Non-African American) 82.2; Potassium 3.5 mmol/L (3.5-5.1)
[2019-08-26 06:49] LABS: Albumin Globulin Ratio 0.9 (0.9-2); Bilirubin,Total 0.8 mg/dl (0.2-1); Globulin 3.2 gm/dl (2.5-4.0); Total Protein 5.9 gm/dl (6.4-8.2)
[2019-08-26] MEDS: FLUTICASONE/SALMETEROL 250/50 (ADVAIR) 14 PUFF/1 INHALER INH SCH (09:26)
[2019-08-26 09:27] VITALS: PULSE 88; O2SAT 93
[2019-08-26] MEDS: ATORVASTATIN 10 MG TAB PO SCH (09:27)
[2019-08-26] MEDS: PANTOprazole 40 MG TAB PO SCH (09:27)
[2019-08-26] MEDS: FERROUS FUMARATE/ASCORBIC ACID 65 MG CAPCR PO SCH (09:27)
[2019-08-26] MEDS: guaiFENesin 600 MG TABCR PO SCH (09:27)
[2019-08-26] MEDS: TOLTERODINE TARTRATE 2 MG TAB PO SCH (09:27)
[2019-08-26] MEDS: METOPROLOL SUCC 25MG EXT REL TAB PO SCH (09:27)
[2019-08-26] MEDS: ESCITALOPRAM OXALATE 10 MG TAB PO SCH (09:27)
[2019-08-26] MEDS: predniSONE 20 MG TAB PO SCH (09:27)
[2019-08-26] MEDS: MIRABEGRON ER 25 MG TAB PO SCH (09:28)
[2019-08-26] MEDS: DOXYCYCLINE HYCLATE 100 MG CAP PO SCH (09:28)
[2019-08-26] MEDS: BRIMONIDINE TARTRATE-P 0.15% 5 ML BTL OP SCH (09:28)
[2019-08-26] MEDS: OXYCODONE HCL IR 5 MG TAB (IMMEDIATE RELEASE) PO PRN (09:48)
--- NOTE | 2019-08-26 12:25 | Discharge Summary ---
Date of Service August 26, 2019 Admission HPI Per Admitting Provider Mrs. Becker is a 79 year old female with past medical history of HLD, DM, HTN, Depression, V. tach, total colectomy s/p ileostomy placement who presented to the ER following a fall at home. Pt. reports she tripped on a dog bed and fell to the ground. She landed on her left elbow and left knee. She has had severe pain in both joints following fall. Pt. rates knee pain as a 10/10 on pain scale and elbow pain as a 4/10 on pain scale. Complains of nausea but denies vomiting. Denies headache, visual changes, chest pain, SOB, abd pain, decreased ostomy output, urinary retention, dysuria or hematuria. ER course: Knee XR showed an acute comminuted, angulated displaced and impacted distal femoral fracture with fracture extension into the intercondylar notch and elbow XR showed acute mildly displaced radial head fracture. She received Fentanyl IV for pain control (allergy to morphine). Will be admitted for evaluation by Dr. Bobby. Admission Exam Per Admitting Provider Physical Exam: General: In mild distress 2/2 pain. HEENT: NC/AT; PERRLA with EOMI; Sundown conjunctiva, MMM. No erythema of posterior pharynx Neck: Supple and nontender Cardiac: RRR w/o murmurs, gallops or rubs Lungs: CTA bilaterally Abdomen: Bowel normoactive X 4; Nontender to palpation Rectal: Deferred : Deferred Back: NO spinous tenderness Extremities: Warm. No edema present. Left knee with brace, did not palpate for pt. comfort. Also has sling on left elbow, full ROM of left digits and intact to light sensation. Neuro: No focal weakness Skin: No rash Constitutional: WD/WN, vitals as above Eyes: normal visual mcelroy by confrontation and + anicteric sclerae Neck: normal visual inspection and trachea midline Respiratory: normal respiratory effort, lungs clear to auscultation Cardiovascular: Rate/Rhythm: regular rate and regular rhythm Gastrointestinal (Abdomen): Inspection/Auscultation: abdomen not distended Percussion/Palpation: abdomen soft; abdomen nontender Musculoskeletal: Head/Neck/Chest: normocephalic and head atraumatic Neg for peripheral LE edema, + pedal pulses Skin: no rashes, warm and dry Neurologic: awake; not confused Speech / Cognition: normal speech Psychiatric: A+Ox3, euthymic affect Lymphatic: Exam as done by Ignacia Ivey DO Principal Diagnosis 1. Mechanical fall 2. Closed fracture of the distal left femur 3. Closed fracture of the left elbow 4. Diabetes mellitus, on insulin pump 5. Hyperlipidemia 6. Chronic right bundle branch block Discharge Exam GENERAL: Non-toxic in appearance. INTEGUMENTARY: Warm, dry, and Sundown. HEAD: Normocephalic. EYES: without scleral icterus or trauma. ENT/OROPHARYNX: clear and moist. LYMPHADENOPATHY/NECK: Is supple without lymphadenopathy or meningismus. RESPIRATORY: Lungs clear and equal, limited exam CARDIOVASCULAR: Regular rate and rhythm. GI/ABDOMEN: Soft and nontender. No organomegaly or pulsatile mass. No rebound or guarding. Normal bowel sounds. EXTREMITIES: Warm and well perfused. BACK: No CVA tenderness. NEUROLOGICAL: Intact without focal deficits. PSYCHIATRIC: normal affect. MUSCULOSKELETAL: Patient with immobilizer on the left lower extremity, also has a sling with a cast on the left upper extremity. Did not disturb these further.. Discharge Data Allergies Allergy/AdvReac Type Severity Reaction Status Date / Time latex Allergy Intermediate RASH Verified 08/15/19 16:15 LOCALIZED erythromycin base Allergy Mild RASH Verified 08/15/19 16:15 Quinolones Allergy Mild RASH Verified 08/15/19 16:15 chlorhexidine Allergy Unknown SKIN Verified 08/15/19 16:15 BLISTERS Cipro Allergy Unknown RASH Verified 06/02/18 14:15 ciprofloxacin Allergy Unknown RASH Verified 08/15/19 16:15 isopropyl alcohol Allergy Unknown SKIN Verified 08/15/19 16:15 BLISTERS hydromorphone AdvReac Intermediate RASH Verified 08/15/19 16:15 iron AdvReac Intermediate CHEST Verified 08/15/19 16:15 PAIN, IRON DEXTRAN morphine AdvReac Unknown RASH -HIVE Verified 08/15/19 16:15 LIKE Consultations 08/15/19 17:42 ED Decision to Admit Stat 08/15/19 18:25 Consult Orthopedic Surgery Routine 08/15/19 23:28 Consult Case Management - Discharge Planning Routine 08/16/19 13:46 Consult Case Management - Discharge Planning Routine 08/21/19 08:59 Consult Hematology Routine Procedures Performed Operation Date: 08/16/19 07:30 Actual Procedures p Open Reduction Internal Fixation Left Distal Femur Fracture(Left) - Florian Bobby DO s Open Reduction Internal Fixation Left Radial Head Fracture(Left) - Florian Bobby DO Ordered Studies 08/16/19 07:30 FL elbow LT 2V Routine FL femur LT 2V Routine FL fluoroscopy <1hr Routine 08/16/19 08:00 FL fluoroscopy <1hr Routine 08/16/19 08:01 US - OR guided needle placemen Routine Hospital Course (1) Closed fracture of left distal femur: (2) Closed fracture of left elbow: Patient was initially admitted with multiple fractures as detailed above. She was seen by orthopedics. Patient underwent ORIF of her distal left femur fracture as well as her left olecranon on 08/16 with orthopedics. Postoperatively, orthopedics recommended nonweightbearing status for both extremities until she can be seen in the office. They also recommended that sutures stay in until she is again seen in the office. Of note, patient had some anemia with hemoglobin down to 6.5. It was felt that this was secondary to acute blood loss anemia although she was also found to be iron deficient. She was transfused 2 units of packed red blood cells after appropriate consent was given. She is also given IV iron for repletion and changed over to oral iron supplementation after discharge. (3) Healthcare-associated pneumonia: Patient developed pneumonia in the hospital, felt to be possible hospital associated pneumonia. She did have an elevated CRP as well as procalcitonin. MRSA was negative. Patient was treated initially with ceftriaxone but this was changed over to oral doxycycline for discharge. Patient was afebrile with normal white count at time of discharge and will finish 5 more days of this after her departure. (4) Fall: -Likely mechanical fall; no indication for cardiac work up. -Ongoing PT/OT eval and treat. (5) Osteoporosis: Given the rather significant trauma from what appeared to be a moderate at worst mechanical fall, could be due to osteoporosis she is following actively with endocrinology who has been managing things aggressively, discussed with her that anticipate the need to escalate treatment further to something such as Prolia or Forteo, will obviously defer to endocrine in this regard, but will definitely want to ensure she has close endocrine follow-up after discharge. (6) Anemia: Appreciate Dr. Velasquez recommendations. Patient anemia almost certainly related to her recent surgery. Postoperative anemia can take several days to not dinner and after 2 weeks to recover. This time frame can be delayed further in the urgently and in those with underlining bone marrow issues as that is the case with this patient. Dr. Velasquez recommended to transfuse and keep hemoglobin over 8. Patient is right now 9.6. Patient also has component of chronic disease and her transferrin and TIBC's are low. Her iron saturation is only 9% and she is also mildly iron deficient. Plan to give IV dose of iron since she has issues absorbing iron internally in the past. This would recover bone marrow more quickly. Will check for B12 and folate level. Low platelets due to chronic splenomegaly as well and his white blood cells. (7) Diabetes mellitus: -Most recent A1C was 5.1 in Jul 2019. -Using her own insulin pump, sugars are under reasonable control overall, continue current care. Glycemic control per pharmacy (8) HLD (hyperlipidemia): - Continue statin, 10 mg p.o. every other day. (9) HTN (hypertension): -Blood pressure control adequate, continue current. (10) Depression: - Continue Lexapro as prescribed. (11) Right bundle branch block: - H/o RBBB; Pre-op EKG showed known RBBB, otherwise negative. - Follows annually with Dr. Israel (cardiology in [place]). Follow-up with Dr. Israel after discharge (12) DVT prophylaxis: - SCDs; hold pharmacologic ppx for procedure. Dispo: Stable for MedSurg, once pain control with mobility is better, and once pneumonia is improving, then we can start to look towards SNF with a rehab emphasis. Total Time Total Time Spent Total Time Spent (In Minutes): Discharge was completed in excess of 30 minutes Discharge Plan Discharge Items Patient Disposition: Transfer Alf Fac Reason For Visit: RADIAL HEAD FRACTURE Discharge Diagnosis: 1. Left radial head fracture 2. Left distal femur fracture 3. Acute blood loss anemia secondary to surgery 4. Iron deficiency anemia Condition on Discharge: Good Activity: Per Instructions section Activity Comment: No weightbearing to left lower extremity Lifting: None Lifting Comment: No weightbearing to left upper extremity Weightbearing: Left non-weightbearing Weightbearing Comment: Nonweightbearing on the left arm and left leg Non-emergency contact: Primary Care Provider Call non-emergency contact if: you have any medication questions Follow-up/Referrals: Florian Bobby DO [Surgeon] - (Follow-up as directed) Lisa Phan PA-C [Primary Care Provider] - Diet: Carb Consistent or DM2 Addtl Manager Drug Safety Provider Instructions: Nonweightbearing on the Left Upper and Left Lower extremity. Bed to chair or bed to wheel chair transfers. Keep your arm splint/dressing clean and dry at all times. Sling at all times for left arm. May loosen for comfort Immobilizer to Left knee. May remove for bathing and dressing. Must be on for transfers/ambulation. NO RANGE OF MOTION OF THE LEFT KNEE AT THIS TIME. You may do range of motion of your left fingers regularly. Keep the left leg and arm elevated on at least one pillow when at rest. Ice to both left elbow and left knee regularly. Prevena- This is a large suction dressing covering your incision on your left leg. This will help pull any excess drainage from the wound and allow your incision to heal properly. You may shower with this if you can keep the unit outside of the shower. If any bleeding or leakage is noted please call your doctor's office. This will remain on your incision for 7 days and then should be removed. This can be done yourself or by the home nursing staff if applica ble. The entire unit is disposable once removed. Once removed, keep incision clean and dry. If redness or drainage is noted, please call your surgeon. Call the office if you are having increased pain, redness, swelling, or drainage not noticed before of your operative areas. Or if you have a temperature of 101.5 or greater. Follow up with Dr. Bobby in 10 - 14 days from the day of surgery. Call for an appointment. [phone] Pending Studies at Discharge: No Stand-Alone Forms: My [facility] [employer] Skilled Items Patient informed of condition?: Yes DNR: No Discharge Level of Care: Skilled Communicable Disease: No Discharge Prognosis: Improving Lines: None Urinary Catheter: No Medications and DC Order Prescriptions: New fluticasone propion-salmeterol [Advair Diskus] 250-50 mcg/dose Blister With Device 1 puff inhalation BID Qty: 1 RF: 0 doxycycline hyclate 100 mg Capsule 100 mg PO BID Qty: 10 RF: 0 ipratropium-albuterol 0.5 mg-3 mg(2.5 mg base)/3 mL Solution For Nebulization 3 ml NEB QIDR PRN (Reason: shortness of breath) Qty: 1 RF: 0 albuterol sulfate [Ventolin HFA] 90 mcg/actuation Hfa Aerosol Inhaler 2 puff inhalation QID PRN (Reason: wheeze) Qty: 1 RF: 0 oxycodone 5 mg Tablet 5 mg PO Q4 PRN (Reason: pain) 2 Days Qty: 20 RF: 0 guaifenesin [Mucinex] 600 mg Tablet Extended Release 12hr 1,200 mg PO Q12 Qty: 20 RF: 0 Mindi-Sequels (iron-vit c) 200 mg (65 mg iron)-25 mg Tablet Extended Release 65 mg PO QAM Qty: 30 RF: 0 Continued brimonidine [Alphagan P] 0.15 % drops 1 drops OP BID RF: 0 aspirin 81 mg tablet,delayed release (DR/EC) 81 mg PO DAILY RF: 0 atorvastatin [Lipitor] 10 mg tablet 10 mg PO Q OTHER DAY Qty: 90 RF: 0 insulin syringe-needle U-100 [BD Insulin Syringe Ultra-Fine] 0.5 mL 31 gauge x 5/16" syringe .ROUTE .MEDSUPPLY Qty: 10 RF: 0 calcium carbonate 600 mg calcium (1,500 mg) tablet 600 mg PO DAILY RF: 0 Contour Next Test Strips strip .ROUTE .MEDSUPPLY Qty: 10 RF: 0 lisinopril [Zestril] 5 mg tablet 5 mg PO DAILY RF: 0 metoprolol tartrate 25 mg tablet 25 mg PO DAILY RF: 0 Myrbetriq 50 mg tablet extended release 24 hr 50 mg PO DAILY Qty: 90 RF: 0 esomeprazole magnesium [Nexium] 40 mg capsule,delayed release(DR/EC) 40 mg PO DAILY RF: 0 Novolog U-100 Insulin aspart 100 unit/mL solution 26 units SQ UNKNOWN RF: 0 lancets [OneTouch Delica Lancets] 33 gauge misc .ROUTE .MEDSUPPLY Qty: 100 RF: 0 montelukast [Singulair] 10 mg tablet 10 mg PO DAILY RF: 0 solifenacin [Vesicare] 10 mg tablet 10 mg PO DAILY Qty: 90 RF: 0 cyanocobalamin (vitamin B-12) 500 mcg tablet,disintegrating 500 mcg sublingual DAILY RF: 0 ergocalciferol (vitamin D2) [Drisdol] 50,000 unit capsule 50,000 units PO WEEKLY Qty: 14 RF: 0 latanoprost [Xalatan] 0.005 % drops 1 drops OPB DAILY RF: 0 escitalopram oxalate [Lexapro] 10 mg tablet 10 mg PO DAILY RF: 0 Centrum Silver 0.4-300-250 mg-mcg-mcg Tablet 1 tab PO DAILY RF: 0 metoprolol succinate [Toprol XL] 25 mg tablet extended release 24 hr 25 mg PO DAILY RF: 0 Discharge Orders: Discharge Order (Routine); Ordered 08/26/19 Ordered By: Ottoniel Jama/Other Patient Handouts: Fx Elbow ORIF, Fx Femur ORIF Admission Data Admit Date/Time: 08/15/19 20:54 Attending Provider: Ottoniel Jones Admit Provider: Ignacia Ivey Primary Care Provider: Lisa Phan Other Providers: Florian Bobby ; Ignacia Ivey ; Jay Velasquez
[2019-08-26 15:12] VITALS: BP 122/69; TEMP 98.6
== END 2019-08-26 18:06 | DRG 480 ==
LOC: ED 14:49 → 2N 18:23 → SUATTDRO 18:23 → 2E 20:55 → 2W 08-16 20:28 → 3E 08-18 14:17

== ENCOUNTER 2021-07-07 05:37 | Observation (INO) ==
--- NOTE | 2021-06-06 11:07 | PAT Medication Instructions ---
Medication Instructions Date of Service June 06, 2021 Home Medications Medication Instructions Recorded Valentin KwikPen U-100 Insulin 100 30 unit SUBCUT .COMPLEX #15 ml NS 06/23/20 unit/mL (3 mL) subcutaneous (insulin glargine) Contour Next Test Strips (blood #600 ea NS 07/04/20 sugar diagnostic) pen needle, diabetic 32 gauge x #100 ea 02/14/21 5/32" (BD Ultra-Fine Mckenzie Pen Needle) cholecalciferol (vitamin D3) 1,250 50,000 unit PO .COMPLEX #14 cap 05/05/21 mcg (50,000 unit) capsule Novolog U-100 Insulin aspart 100 80 unit SQ DAILY #8 vial NS 05/24/21 unit/mL subcutaneous solution (insulin aspart U-100) atorvastatin 10 mg tablet (Lipitor) 10 mg PO Q2D brimonidine 0.15 % eye drops (Alphagan P) 1 drops OP BID cyanocobalamin (vitamin B-12) 500 mcg disintegrating tablet,sublingual 500 mcg SUBLINGUAL QAM esomeprazole magnesium 40 mg capsule,delayed release (Nexium) 40 mg PO QAM montelukast 10 mg tablet (Singulair) 10 mg PO QAM metoprolol succinate 25 mg tablet,extended release 24 hr (Toprol XL) 25 mg PO QAM Centrum Silver 1 tab PO QPM escitalopram oxalate 10 mg tablet (Lexapro) 10 mg PO HS Jadeaglmary BossikPen U-100 Insulin 100 unit/mL (3 mL) subcutaneous (insulin glargine) 30 unit SUBCUT .COMPLEX aspirin 81 mg tablet,delayed release 81 mg PO QAM mirabegron 50 mg tablet,extended release 24 hr (Myrbetriq) 50 mg PO QAM calcium carb 300 mg-D3 800 unit-mag ox 25 mg-freelance copywriter 0.5 mg-genesis-Zn tablet (Caltrate + D3 Plus Minerals) 1 tab PO QAM ascorbic acid (vitamin C) 500 mg capsule 500 mg PO QPM ferrous sulfate 325 mg (65 mg iron) tablet 325 mg PO QPM lisinopril 5 mg tablet (Zestril) 2.5 mg PO QAM cholecalciferol (vitamin D3) 1,250 mcg (50,000 unit) capsule 50,000 unit PO .COMPLEX Novolog U-100 Insulin aspart 100 unit/mL subcutaneous solution (insulin aspart U-100) 80 unit SQ DAILY ibuprofen 200 mg tablet 400 mg PO BID PRN latanoprostene bunod 0.024 % eye drops (Vyzulta) 1 drp OPHTHALMIC (EYE) PM teriparatide 20 mcg/dose (620 mcg/2.48 mL) subcutaneous pen injector (Forteo) 20 mcg SUBCUT HS Continue as directed atorvastatin 10 mg tablet (Lipitor) 10 mg PO Q2D Basaglar KwikPen U-100 Insulin 100 unit/mL (3 mL) subcutaneous (insulin gla rgine) 30 unit SUBCUT .COMPLEX (to be used in case of pump failure) ASK your surgeon for instructions ibuprofen 200 mg tablet 400 mg PO BID PRN ASK your prescriber and surgeon aspirin 81 mg tablet,delayed release 81 mg PO QAM teriparatide 20 mcg/dose (620 mcg/2.48 mL) subcutaneous pen injector (Forteo) 20 mcg SUBCUT HS DO NOT take the morning of surgery cyanocobalamin (vitamin B-12) 500 mcg disintegrating tablet,sublingual 500 mcg SUBLINGUAL QAM montelukast 10 mg tablet (Singulair) 10 mg PO QAM mirabegron 50 mg tablet,extended release 24 hr (Myrbetriq) 50 mg PO QAM calcium carb 300 mg-D3 800 unit-mag ox 25 mg-freelance copywriter 0.5 mg-genesis-Zn tablet (Caltrate + D3 Plus Minerals) 1 tab PO QAM lisinopril 5 mg tablet (Zestril) 2.5 mg PO QAM cholecalciferol (vitamin D3) 1,250 mcg (50,000 unit) capsule 50,000 unit PO .COMPLEX Take morning of surgery With a small sip of water, OTHERWISE NOTHING TO EAT OR DRINK AFTER MIDNIGHT: brimonidine 0.15 % eye drops (Alphagan P) 1 drops OP BID esomeprazole magnesium 40 mg capsule,delayed release (Nexium) 40 mg PO QAM metoprolol succinate 25 mg tablet,extended release 24 hr (Toprol XL) 25 mg PO QAM Take evening before surgery brimonidine 0.15 % eye drops (Alphagan P) 1 drops OP BID Centrum Silver 1 tab PO QPM escitalopram oxalate 10 mg tablet (Lexapro) 10 mg PO HS ascorbic acid (vitamin C) 500 mg capsule 500 mg PO QPM ferrous sulfate 325 mg (65 mg iron) tablet 325 mg PO QPM latanoprostene bunod 0.024 % eye drops (Vyzulta) 1 drp OPHTHALMIC (EYE) PM Insulin Dependent Diabetic Patients For insulin pump, set to basal rate and do not bolus morning of surgery Other Notes If you have any questions please call us at [phone] or [phone] or [phone] or [phone]
--- NOTE | 2021-06-09 13:00 | Anesthesiology Consultation ---
Date of Service June 09, 2021 Assessment & Plan (1) Encounter for pre-operative examination: - COVID screening: Per assessment on 06/09: Travel screen negative, no known COVID-19 positive contacts or current COVID-19 related symptoms. Patient vaccinated. Surgeon arranging preop COVID testing. Awaiting results. - Cardiology note (05/29/21): "low risk" for surgery - Hx difficult intubation: Patient reports she has had remote awake intubations in the past ([facility] [place]). Subsequently had Left fumur ORIF, left radial head ORIF (08/16/19) with Grade view 1, Glidescope #3 at [facility] (atraumatic attempt x1) - Check BSG AM DOS - Chlorhexidine wipes: Patient reports hx of skin blistering with chlorhexidine in the past. No wipes given at PAT visit. Chart Review Chart Review: Acceptable Risk for Surgery (pending surgeon-ordered PCP clearance) and Patient seen in Pre Admission Testing Teaching & Discussion Pre-Anesthesia Teaching/Discussion Notes: Instructed NPO after midnight before surgery,except medications with 15 cc of water. Medication instructions provided according to the PAT guidelines. History Surgery Operation Date: 07/07/21 09:25 Proposed Procedures p Left Femur Currettage & Application of Bone Graft Substitute, Allograft of Distal Femur Nonunion - Florian Bobby, Height/Weight Height: 5 ft 5.5 in Weight: 93.8 kg Allergies Allergy/AdvReac Type Severity Reaction Status Date / Time latex Allergy Intermediate Localized Verified 06/06/21 11:12 rash Quinolones Allergy Mild Rash Verified 06/06/21 11:12 chlorhexidine Allergy Unknown Skin Verified 06/06/21 11:12 blistering Cipro Allergy Unknown RASH Verified 06/02/18 14:15 ciprofloxacin Allergy Unknown Rash Verified 06/06/21 11:12 hydromorphone AdvReac Intermediate Rash Verified 06/06/21 11:12 iron AdvReac Intermediate Chest pain Verified 06/06/21 11:12 (with iron infusion) erythromycin base AdvReac Mild Diarrhea Verified 06/06/21 11:12 morphine AdvReac Unknown Hive-like Verified 06/06/21 11:12 rash Medications Home Medications Medication Instructions Recorded Confirmed Last Taken atorvastatin 10 mg tablet (Lipitor) 10 mg PO Q2D #90 tab 08/13/19 05/24/21 10/01/20 brimonidine 0.15 % eye drops 1 drops OP BID ml 08/13/19 05/24/21 10/02/20 (Alphagan P) cyanocobalamin (vitamin B-12) 500 500 mcg SUBLINGUAL QAM tab 08/13/19 05/24/21 10/02/20 mcg disintegrating tablet,sublingual esomeprazole magnesium 40 mg 40 mg PO QAM cap 08/13/19 05/24/21 10/02/20 capsule,delayed release (Nexium) insulin syringe-needle U-100 0.5 #10 ea 08/13/19 05/23/21 Unknown mL 31 gauge x 5/16" (BD Insulin Syringe Ultra-Fine) lancets 33 gauge (OneTouch Delica #100 ea 08/13/19 02/14/21 Unknown Lancets) montelukast 10 mg tablet 10 mg PO QAM tab 08/13/19 05/24/21 10/02/20 (Singulair) metoprolol succinate 25 mg 25 mg PO QAM 08/15/19 05/24/21 10/02/20 tablet,extended release 24 hr (Toprol XL) xdhvsliz-asb-lpcbn acid 0.4 1 tab PO QPM 08/15/19 05/24/21 10/02/20 mg-lycopene 300 mcg-lutein 250 mcg tablet (Centrum Silver) escitalopram oxalate 10 mg tablet 10 mg PO HS tab 11/17/19 05/24/21 10/01/20 (Lexapro) Basaglar KwikPen U-100 Insulin 100 30 unit SUBCUT .COMPLEX #15 ml NS 06/23/20 05/24/21 Unknown unit/mL (3 mL) subcutaneous (insulin glargine) Contour Next Test Strips (blood #600 ea NS 07/04/20 05/23/21 Unknown sugar diagnostic) aspirin 81 mg tablet,delayed 81 mg PO QAM 10/02/20 05/24/21 10/02/20 release mirabegron 50 mg tablet,extended 50 mg PO QAM 10/02/20 05/24/21 10/02/20 release 24 hr (Myrbetriq) calcium carb 300 mg-D3 800 1 tab PO QAM 11/23/20 05/24/21 Unknown unit-mag ox 25 mg-helicopter engineer 0.5 mg-genesis-Zn tablet (Caltrate + D3 Plus Minerals) ascorbic acid (vitamin C) 500 mg 500 mg PO QPM 02/14/21 05/24/21 Unknown capsule ferrous sulfate 325 mg (65 mg 325 mg PO QPM 02/14/21 05/24/21 Unknown iron) tablet lisinopril 5 mg tablet (Zestril) 2.5 mg PO QAM tab 02/14/21 05/24/21 Unknown pen needle, diabetic 32 gauge x #100 ea 02/14/21 05/23/21 Unknown " (BD Ultra-Fine Mckenzie Pen Needle) cholecalciferol (vitamin D3) 1,250 50,000 unit PO .COMPLEX #14 cap 05/05/21 05/24/21 Unknown mcg (50,000 unit) capsule Novolog U-100 Insulin aspart 100 80 unit SQ DAILY #8 vial NS 05/24/21 05/24/21 Unknown unit/mL subcutaneous solution (insulin aspart U-100) ibuprofen 200 mg tablet 400 mg PO BID PRN 05/24/21 05/24/21 Unknown latanoprostene bunod 0.024 % eye 1 drp OPHTHALMIC (EYE) PM 05/24/21 05/24/21 Unknown drops (Vyzulta) teriparatide 20 mcg/dose (620 20 mcg SUBCUT HS 05/24/21 05/24/21 Unknown mcg/2.48 mL) subcutaneous pen injector (Forteo) Past Medical History Medical History Adrenal cortex hyperplasia 4 tumors present, under surveillance by Dr. Carson CAD (coronary artery disease) Mild, non-obstructive, follows with Dr. Israel Carotid artery stenosis <50% ICA stenosis B/L per 2017 carotid duplex Chronic anemia hgb 9-11 range per chart review Depression Diabetes IDDM GERD (gastroesophageal reflux disease) Hiatal hernia HLD (hyperlipidemia) HTN (hypertension) Kidney stones 2004 Osteoarthritis Sleep apnea Stopped using CPAP Spring 2020 (headaches) Urinary, incontinence, stress female V tach Remote hx (2009) Exercise / Class Metabolic Activity III < 4 Walking/Shop/Light housework (uses cane PRN) Past Family History Family History Mother Stroke Diabetes Father Diabetes Stroke Past Surgical History Surgical History Difficult airway for intubation Patient reports she has had remote awake intubations in the past ([facility] [place]). Subsequently had Left fumur ORIF, left radial head ORIF (08/16/19) with Grade view 1, Glidescope #3 at [facility] (atraumatic attempt x1) H/O total colectomy History of cardiac cath 2017 > no stents History of cataract surgery R/L History of colonoscopy History of cystoscopy Left + stent History of esophagogastroduodenoscopy (EGD) History of eye surgery R/L Trabeculectomy History of herniorrhaphy History of repair of rotator cuff R/L S/P ankle arthrodesis Right S/P cholecystectomy S/P hysterectomy S/P small bowel resection + ileostomy, closure of fistula, perforations (2007) Status post open reduction and internal fixation (ORIF) of fracture Left fumur ORIF, left radial head ORIF (08/16/19): Grade view 1, Glidescope #3 at [facility] (atraumatic attempt x1) Past Anesthesia History Difficult Airway (Patient reports she has had remote awake intubations in the past ([facility] [place]). Subsequently had Left fumur ORIF, left radial head ORIF (08/16/19) with Grade view 1, Glidescope #3 at [facility] (atraumatic attempt x1)) and No Family Hx of Anesthesia Complications History of PONV History of PONV (+ post-op nausea) and Hx of Motion Sickness (occasional) Social History Smoking Status: Never smoker Do You Dip or Chew Tobacco: No Hx Alcohol Use: No Hx Substance Use: No Review of Systems Patient denies chest pain, shortness of breath, dyspnea on exertion, fever, chills, cough, wheezing, palpitations. Physical Exam Vital Signs VITALS BP 100/59 (per pt, bp typically low-normal range) P 81 TEMP 98.3 SP02 93%RA RESP 18 PHYSICAL Mildly decreased cervical extension range of motion. Full TMJ range of motion. TMD 3.5 finger breaths Mallampati Score 4 (very small oral opening) Dentition: missing sides, molars Lungs: clear throughout to auscultation Cardiac: regular rate and rhythm, no murmurs noted Spine: normal Carotid arteries: negative bruit Extremities: no edema Short neck Lab Results Anesthesia Preop Results Results Anesthesia Widget: WBC 4.17 K/uL (4.8-10.8) L 06/09/21 Hgb 10.8 g/dL (12.0-16.0) L 06/09/21 Hct 33.3 % (37-47) L 06/09/21 Plt 120 K/uL (130-400) L 06/09/21 Na 137 mmol/L (136-145) 06/09/21 K 4.0 mmol/L (3.5-5.1) 06/09/21 Cl 103 mmol/L (98-107) 06/09/21 CO2 29 mmol/L (21-32) 06/09/21 BUN 13 mg/dl (7-18) 06/09/21 Creat 0.89 mg/dl (0.6-1.2) 06/09/21 Glucose Level 184 mg/dl (70-99) H 06/09/21 PT 10.3 Seconds (9.0-12.0) 06/09/21 PTT 27.1 Seconds (21.0-31.0) 06/09/21 INR 1.0 (0.9-1.1) 06/09/21 HA1c 4.9 % (4.5-5.6) 06/09/21 Urine Color Dark Yellow 06/09/21 Urine Appearance Clear (Clear) 06/09/21 Urine pH 6.0 (4.5-7.5) 06/09/21 Urine Specific [place] 1.020 (1.000-1.030) 06/09/21 Urine Protein 1+ (Negative) H 06/09/21 Urine Glucose (UA) Negative (Negative) 06/09/21 Urine Ketones Trace (Negative) H 06/09/21 Urine Blood 1+ (Negative) H 06/09/21 Urine Nitrite Negative (Negative) 06/09/21 Urine Bilirubin 1+ (Negative) H 06/09/21 Urine Urobilinogen Negative (Negative) 06/09/21 Urine Leukocyte Esterase Trace (Negative) H 06/09/21 Urine WBC (Auto) 1-5 /hpf (0-5) 06/09/21 Urine RBC (Auto) 0-4 /hpf (0-4) 06/09/21 Urine Hyaline Casts (Auto) 10-30 /lpf (0-5) H 06/09/21 Urine Epithelial Cells (Auto) >30 /lpf (0-5) H 06/09/21 Urine Bacteria (Auto) Negative (Negative) 06/09/21 Urine Yeast Not Reportable 06/09/21 Lab Comments: Low WBC > preop labs to be forwarded to PCP for continuity of care. Testing Electrocardiogram Date: 06/09/21 NSR at 84bpm. RBBB. TWI less evident in anterior leads compared to 08/16/19 per continuity person review. V3 and V4 appear upright/nonspecific per visual review. Similar T-waves noted on 11/06/12 EKG, patient with subsequent 2017 stress test/echo/cath. Cath with non-obstructive disease. Chest X-Ray Date: 06/09/21 FINDINGS: Lung volumes are normal. Lungs are clear. There is no pneumothorax or pleural effusion. Cardiac size is normal. Mediastinal contours are normal. There is no evidence for pulmonary edema. Elevation of the right hemidiaphragm is unchanged. IMPRESSION: No acute cardiopulmonary findings. Echocardiogram Date: 09/02/17 EF: 65%. Mild concentric LVH. Mild RVD. Mild MR. Stress Test Date: 09/17/17 Type: nuclear Nondiagnostic stress EKG for ischemia. Large moderate partially reversible anterior wall defect suggestive of ischemia with focal infarction. Subsequent cardiac cath done 10/03/2017 with mild nonobstructive CAD. Cardiac Catheterization Date: 10/03/17 LVEF 60%. Mild non-obstructive CAD. Other Testing Carotid Duplex 09/17/17 <50% ICA stenosis B/L antegrade flow B/L vertebral artery
--- NOTE | 2021-07-06 16:06 | History & Physical Report ---
Date of Service July 06, 2021 Assessment & Plan (1) Jade-prosthetic supracondylar fracture of femur: Plan: Schedule a left distal femur curretage distal femur nonunion fx with application Augment allograft and cancellous allograft for 07.07.21. All potential risks, benefits, complications, alternatives, and rehab have been discussed with the patient and she wishes to proceed. Aspirin 81 mg BID x 4 wks for post op DVT prophylaxis. 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 She progressed well but had persistent distal femur and knee pain. She had a CT that noted partial healing but persistent lucency. She is now being set up for surgical management. Allergies Allergy/AdvReac Type Severity Reaction Status Date / Time latex Allergy Intermediate Localized Verified 06/06/21 11:12 rash Quinolones Allergy Mild Rash Verified 06/06/21 11:12 chlorhexidine Allergy Unknown Skin Verified 06/06/21 11:12 blistering Cipro Allergy Unknown RASH Verified 06/02/18 14:15 ciprofloxacin Allergy Unknown Rash Verified 06/06/21 11:12 hydromorphone AdvReac Intermediate Rash Verified 06/06/21 11:12 iron AdvReac Intermediate Chest pain Verified 06/06/21 11:12 (with iron infusion) erythromycin base AdvReac Mild Diarrhea Verified 06/06/21 11:12 morphine AdvReac Unknown Hive-like Verified 06/06/21 11:12 rash Home Medications Medication Instructions Recorded Confirmed Type atorvastatin 10 mg tablet (Lipitor) 10 mg PO Q2D #90 tab 08/13/19 05/24/21 History brimonidine 0.15 % eye drops 1 drops OP BID ml 08/13/19 05/24/21 History (Alphagan P) cyanocobalamin (vitamin B-12) 500 500 mcg SUBLINGUAL QAM tab 08/13/19 05/24/21 History mcg disintegrating tablet,sublingual esomeprazole magnesium 40 mg 40 mg PO QAM cap 08/13/19 05/24/21 History capsule,delayed release (Nexium) insulin syringe-needle U-100 0.5 #10 ea 08/13/19 05/23/21 History mL 31 gauge x 5/16" (BD Insulin Syringe Ultra-Fine) lancets 33 gauge (OneTouch Delica #100 ea 08/13/19 02/14/21 History Lancets) montelukast 10 mg tablet 10 mg PO QAM tab 08/13/19 05/24/21 History (Singulair) metoprolol succinate 25 mg 25 mg PO QAM 08/15/19 05/24/21 History tablet,extended release 24 hr (Toprol XL) ghdmgyjx-pos-visix acid 0.4 1 tab PO QPM 08/15/19 05/24/21 History mg-lycopene 300 mcg-lutein 250 mcg tablet (Centrum Silver) escitalopram oxalate 10 mg tablet 10 mg PO HS tab 11/17/19 05/24/21 History (Lexapro) Basaglar KwikPen U-100 Insulin 100 30 unit SUBCUT .COMPLEX #15 ml NS 06/23/20 05/24/21 Rx unit/mL (3 mL) subcutaneous (insulin glargine) Contour Next Test Strips (blood #600 ea NS 07/04/20 05/23/21 Rx sugar diagnostic) aspirin 81 mg tablet,delayed 81 mg PO QAM 10/02/20 05/24/21 History release mirabegron 50 mg tablet,extended 50 mg PO QAM 10/02/20 05/24/21 History release 24 hr (Myrbetriq) calcium carb 300 mg-D3 800 1 tab PO QAM 11/23/20 05/24/21 History unit-mag ox 25 mg-senior copywriter 0.5 mg-genesis-Zn tablet (Caltrate + D3 Plus Minerals) ascorbic acid (vitamin C) 500 mg 500 mg PO QPM 02/14/21 05/24/21 History capsule ferrous sulfate 325 mg (65 mg 325 mg PO QPM 02/14/21 05/24/21 History iron) tablet lisinopril 5 mg tablet (Zestril) 2.5 mg PO QAM tab 02/14/21 05/24/21 History pen needle, diabetic 32 gauge x #100 ea 02/14/21 05/23/21 Rx 5/32" (BD Ultra-Fine Mckenzie Pen Needle) cholecalciferol (vitamin D3) 1,250 50,000 unit PO .COMPLEX #14 cap 05/05/21 05/24/21 Rx mcg (50,000 unit) capsule Novolog U-100 Insulin aspart 100 80 unit SQ DAILY #8 vial NS 05/24/21 05/24/21 Rx unit/mL subcutaneous solution (insulin aspart U-100) ibuprofen 200 mg tablet 400 mg PO BID PRN 05/24/21 05/24/21 History latanoprostene bunod 0.024 % eye 1 drp OPHTHALMIC (EYE) PM 05/24/21 05/24/21 History drops (Vyzulta) teriparatide 20 mcg/dose (620 20 mcg SUBCUT HS 05/24/21 05/24/21 History mcg/2.48 mL) subcutaneous pen injector (Forteo) Past Med/Surg History Medical History Adrenal cortex hyperplasia 4 tumors present, under surveillance by Dr. Carson CAD (coronary artery disease) Mild, non-obstructive, follows with Dr. Israel Carotid artery stenosis <50% ICA stenosis B/L per 2016 carotid duplex Chronic anemia hgb 9-11 range per chart review Depression Diabetes IDDM GERD (gastroesophageal reflux disease) Hiatal hernia HLD (hyperlipidemia) HTN (hypertension) Kidney stones 2004 Osteoarthritis Sleep apnea Stopped using CPAP Spring 2020 (headaches) Urinary, incontinence, stress female V tach Remote hx (2009) Surgical History Difficult airway for intubation Patient reports she has had remote awake intubations in the past ([facility] [place] Subsequently had Left fumur ORIF, left radial head ORIF (08/16/19) with Grade view 1, Glidescope #3 at [facility] (atraumatic attempt x1) H/O total colectomy History of cardiac cath 2016 > no stents History of cataract surgery R/L History of colonoscopy History of cystoscopy Left + stent History of esophagogastroduodenoscopy (EGD) History of eye surgery R/L Trabeculectomy History of herniorrhaphy History of repair of rotator cuff R/L S/P ankle arthrodesis Right S/P cholecystectomy S/P hysterectomy S/P small bowel resection + ileostomy, closure of fistula, perforations (2007) Status post open reduction and internal fixation (ORIF) of fracture Left fumur ORIF, left radial head ORIF (08/16/19): Grade view 1, Glidescope #3 at [facility] (atraumatic attempt x1) Family History Mother Stroke Diabetes Father Diabetes Stroke Social History (Updated 05/24/21 @ 09:52 by Bambi Taylor, RN) Smoking Status: Never smoker Second Hand Exposure: Yes (BROTHER SMOKED); Hx Alcohol Use: No Hx Substance Use: No Preferred Language: Bel[place]an Communication Ability: Effective Flavor Room Worker Required: No Beliefs That Will Affect Care: None marital status: / Current Living Situation: Alone current occupational status: retired How many Children do You have: 2 Feels Safe at Home: Yes Assistive Devices: Cane and Glasses Physical Exam Constitutional: well developed and well nourished; no acute distress ENMT: external ear and nose normal, oropharynx normal Neck: trachea midline Respiratory: normal respiratory effort, lungs clear to auscultation Cardiovascular: Rate/Rhythm: regular rate and regular rhythm Gastrointestinal (Abdomen): normal bowel sounds, soft, nontender, no hepatosplenomegaly Musculoskeletal: Knee: + surgical incision (healed left knee incisions) and + joint line tenderness (left distal femur); no skin erythema, no ecchymosis, no valgus alignment and no varus alignment Skin: no rashes, warm and dry Neurologic: normal touch/pain/proprioception Psychiatric: Orientation: alert and oriented x 3 Speech: normal rate/rhythm/volume of speech Lymphatic: no cervical or axillary lymphadenopathy
[2021-07-07] MEDS ORDERED: ceFAZolin 2000MG 2,000 MG/15 ML SYR IV SCH (06:00)
[2021-07-07] MEDS ORDERED: LR 15ML/HR IV SCH (06:00)
[2021-07-07] MEDS ORDERED: EPINEPHrine INJ 1 MG/ML AMP ONE (06:32)
[2021-07-07] MEDS ORDERED: ROPIVACAINE 0.5% 5 MG/ML 30 ML VIAL ONE (06:32)
[2021-07-07] MEDS ORDERED: fentaNYL citrate 100 MCG/2 ML VIAL ONE (06:46)
[2021-07-07] MEDS ORDERED: MIDAZOLAM HCL 1 MG/ML 2ML VIAL ONE (06:46)
[2021-07-07] MEDS ORDERED: BUPIVACAINE 0.5 % 5 MG/1 ML PF 10ML VIAL ONE (07:16)
--- NOTE | 2021-07-07 07:18 | History & Physical Bridge Note ---
Date of Service July 07, 2021 History & Physical Bridge Note I have examined the patient, reviewed the History & Physical and in the interval since the performance of the History & Physical I have noted the following changes of clinical significance: no changes noted
[2021-07-07] MEDS ORDERED: ONDANSETRON INJ 2 MG/ML 2 ML VIAL IV PRN ×2 (07:44→10:40)
[2021-07-07] MEDS ORDERED: NALOXONE HCL 0.4 MG/1 ML VIAL/CARP IV PRN ×2 (07:44→10:40)
[2021-07-07] MEDS ORDERED: ATROPINE SULFATE 0.1 MG/ML 10ML SYR IV PRN (07:44)
[2021-07-07] MEDS ORDERED: FLUMAZENIL 0.1 MG/1 ML 10 ML VIAL IV PRN (07:44)
[2021-07-07] MEDS ORDERED: ePHEDrine sulfate 50 MG/ML AMP IV PRN (07:44)
[2021-07-07] MEDS ORDERED: PROMETHAZINE HCL 12.5 MG in SODIUM CHLORIDE 0.9% 50 ML IV PRN (07:44)
[2021-07-07] MEDS ORDERED: PROPOFOL IV EMULSION 10 MG/ML 20 ML VIAL IV ONE (08:42)
[2021-07-07] MEDS ORDERED: LIDOCAINE 2% 2 ML VIAL/AMP(20MG/ML) INFIL ONE (08:42)
--- NOTE | 2021-07-07 09:12 | Post Operative Brief Note ---
Immediate Post Op Note v1 Date of Surgery July 07, 2021 Pre & Post Diagnosis Operation Date: 07/07/21 07:15 Pre-Op Diagnosis: Left Distal Femur Nonunion, Retained Hardware, distal femoral bone cyst Post-Op Diagnosis: Left Distal Femur Nonunion, Retained Hardware, distal femoral bone cyst I identified the patient and participated in the time-out.: Yes Procedure Operation Date: 07/07/21 07:15 Actual Procedures p Left distal femur Curettage & Application of Augment bone Graft Substitute, Allograft of Distal Femur Nonunion, Curettage and removal of Bone Cyst Distal Femur(Left) - Florian Bobby DO Surgeon Florian Bobby DO Military Logistics Specialist Daniel Blair PA-C Estimated Blood Loss 25 Findings Consistent with Post-Op Diagnosis Specimens Bone cyst distal left femur Anesthesia Type Spinal MAC Complications none Disposition Accompanied Patient To Recovery: No Overlapping Procedure I was present for: the critical portions of procedure. I was immediately available: during the entire case.
--- NOTE | 2021-07-07 09:16 | Fluoroscopy Report ---
FL femur LT 2V CLINICAL HISTORY: LT NON UNION BONE SUBSTITUTE PLACEMENT COMPARISON STUDY: Left femur CT 04/21/2021. FLUOROSCOPY TIME: 8 seconds. FINDINGS: 2 fluoroscopic spot images of the distal left femur demonstrate a cortical plate and screws bridging an old, healed fracture. The hardware appears intact. There appears to be bone graft materi al along the medial distal shaft of the left femur. IMPRESSION: Fluoroscopy provided for postoperative changes within the distal left femur as described above. ACT 112: Negative or not required by law. Electronically signed by: Merrill Perdue M.D. 07/07/2021 9:15 AM
--- NOTE | 2021-07-07 10:06 | Anesthesiology Progress Note ---
Date of Service July 07, 2021 Anesthesia Post Procedure Vital Signs Vital Signs: Temp Pulse Pulse Resp BP BP Pulse Ox 07/07/21 09:55 36.2 C L 92 H 16 128/69 97 07/07/21 09:45 93 H 16 127/69 97 07/07/21 09:35 92 H 13 124/57 L 98 07/07/21 09:25 97 H 12 130/63 98 07/07/21 09:18 36.0 C L 99 H 17 122/60 99 07/07/21 06:24 37.5 C 93 H 18 119/98 95 Pain Intensity Neck: Pain Intensity: 4 Transfer of Care Handoff Completed per policy Notes Mental Status: alert / awake / arousable Patient Amnestic to Procedure: Yes Nausea / Vomiting: adequately controlled Pain: adequately controlled Airway Patency, RR, SpO2: stable & adequate BP & HR: stable & adequate Hydration State: stable & adequate Neuraxial Anesthesia: was administered and sensory block is resolving Anesthetic Complications: no major complications apparent
[2021-07-07] MEDS ORDERED: INSULIN GLARGINE SOLOSTAR 100 UNITS/ML 3 ML PEN SQ SCH (10:40)
[2021-07-07] MEDS ORDERED: METOCLOPRAMIDE HCL INJ 5 MG/ML 2 ML VIAL IV PRN (10:40)
[2021-07-07] MEDS ORDERED: ALUMINUM/MAGNESIUM SUSP 30 ML UDC PO PRN (10:40)
[2021-07-07] MEDS ORDERED: MAGNESIUM HYDROXIDE SUSP 30 ML UDC PO PRN (10:40)
[2021-07-07] MEDS ORDERED: bisacodyL 10 MG SUPP PR PRN (10:40)
[2021-07-07] MEDS ORDERED: NO NSAIDS SCH (10:40)
[2021-07-07] MEDS ORDERED: PHARMACY GLYCEMIC MGMT CONSULT PRN (10:40)
[2021-07-07] MEDS ORDERED: diphenhydrAMINE Capsule 25 MG CAP PO PRN (10:40)
--- NOTE | 2021-07-07 11:00 | Pharmacy Report ---
Pharmacy Glycemic Short Note 2 - Date of Service July 07, 2021 - Glycemic Short BSG Results (Last 24 hours): 07/07/21 07/07/21 06:06 09:24 POC Glucose 156 H 128 H OUTPATIENT ANTIDIABETIC REGIMEN: * Medtronic MiniMed insulin pump with NovoLog * Basal ~ 28 units/day * SF ~ 25mg/dl/unit for BSG > 130 * CR ~ 8 (but varies throughout the day) * A1c = 5.3% 07-05-21 (pt has a LOW glycemic index - BSGs do not correlate with A1c. A1c is falsely low) ASSESSMENT: * Met with patient today and discussed inaptient glycemic control with pt own insulin pump * Site last changed 2 days ago - will need changed tomorrow AM. She has all of her supplies but will need insulin provided by pharmacy * Pt does not have a cgm with her- agreeable to have RN check BSGs with hospital meter PLAN FOR INPATIENT GLYCEMIC CONTROL: Pt is to manage BSGs with insulin pump per outpatient settings. * RN will have patient read and sign agreement [id number] Insulin Pump Therapy Patient Agreement. * RN will provide and explain form [id number] Flowsheet for Patient * Patient will document their insulin dose given on [id number] which is kept at the bedside, available to caregivers upon request, and which becomes part of the permanent medical record. If at any time the patients condition evidences that he/she is not able to manage the insulin pump (i.e. frequent hypo/hyperglycemia) Pharmacy will assume glycemic control by discontinuing the pump & managing with SQ basal bolus insulin regimen for the interim. PLAN FOR DISCHARGE: * Pt to continue to f/u with [facility].
[2021-07-07] MEDS: SODIUM CHLORIDE 0.9% 1000ML 1,000 ML IV SCH ×2 (11:11→21:07)
[2021-07-07] MEDS: oxyCODONE HCL IR 5 MG TAB (IMMEDIATE RELEASE) PO PRN ×2 (11:17→20:07)
--- NOTE | 2021-07-07 11:19 | Hospitalist Consultation ---
Date of Consultation July 07, 2021 Assessment & Plan (1) Jade-prosthetic supracondylar fracture of femur: Pain and VTE management per orthopedics. (2) Diabetes mellitus: HbA1C 5.3, well controlled on currently insulin pump. (3) HLD (hyperlipidemia): Continue atorvastatin 10mg Q2D (4) HTN (hypertension): Continue lisinopril 2.5mg PO daily (5) Depression: Continue Lexapro 10mg PO daily (6) Anemia: Normocytic. Hgb 10.8 ?anemia of chronic disease after 6 months antibiotics in after perforated bowel. Repeat CBC in AM. (7) Osteoporosis: Continue Forteo 20 mcg PO daily (8) GERD (gastroesophageal reflux disease): Continue Nexium or hospital formulary equivalent (9) Urinary, incontinence, stress female: Continue Myrbetriq 50mg PO QAM (10) Sleep apnea: Stopped CPAP Spring 2020 due to headaches and sore throat. Requests to use it here however. (11) Chronic allergic rhinitis: Continue montelukast 10mg PO daily VTE Prophylaxis - per orthopedics, no prior history of DVT/PE Disposition - per orthopedics Thank you for the consult we will follow along with you. History of Present Illness Reason for Consultation: Medical Management Attending Physician: Florian Bobby, History of Present Illness Nichol Becker is a 81 year old female admission for elective surgery for jade- prosthetic supracondylar fracture of femur. Surgery (left distal femur Curettage & Application of Augment bone Graft Substitute, Allograft of Distal Femur Nonunion, Curettage and removal of Bone Cyst Distal Femur(Left)) performed today (07/07) by Dr Bobby. Initial injury 2 years ago with fracture to comminuted distal femur fracture. Severe pain in knee in April with hemarthrosis. Subsequent CT scan showed non-union fracture. Chronic medical problems: T2DM - stable, under endocrinology on insulin pump, HbA1C 5.3 (known low glycosylation) Hypertension - stable on lisinopril Osteoporosis - takes Forteo daily (18 months) Anemia - Stable, Pre-op hemoglobin 10.8. 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 Allergies Allergy/AdvReac Type Severity Reaction Status Date / Time latex Allergy Intermediate Localized Verified 07/07/21 06:02 rash Quinolones Allergy Mild Rash Verified 07/07/21 06:02 chlorhexidine Allergy Unknown Skin Verified 07/07/21 06:02 blistering Cipro Allergy Unknown RASH Verified 06/02/18 14:15 ciprofloxacin Allergy Unknown Rash Verified 07/07/21 06:02 hydromorphone AdvReac Intermediate Rash Verified 07/07/21 06:02 iron AdvReac Intermediate Chest pain Verified 07/07/21 06:02 (with iron infusion) erythromycin base AdvReac Mild Diarrhea Verified 07/07/21 06:02 morphine AdvReac Unknown Hive-like Verified 07/07/21 06:02 rash Home Medications Medication Instructions Recorded Confirmed Type atorvastatin 10 mg tablet (Lipitor) 10 mg PO Q2D #90 tab 08/13/19 07/07/21 History brimonidine 0.15 % eye drops 1 drops OP BID ml 08/13/19 07/07/21 History (Alphagan P) cyanocobalamin (vitamin B-12) 500 500 mcg SUBLINGUAL QAM tab 08/13/19 07/07/21 History mcg disintegrating tablet,sublingual esomeprazole magnesium 40 mg 40 mg PO QAM cap 08/13/19 07/07/21 History capsule,delayed release (Nexium) insulin syringe-needle U-100 0.5 #10 ea 08/13/19 05/23/21 History mL 31 gauge x 5/16" (BD Insulin Syringe Ultra-Fine) lancets 33 gauge (OneTouch Delica #100 ea 08/13/19 02/14/21 History Lancets) montelukast 10 mg tablet 10 mg PO QAM tab 08/13/19 07/07/21 History (Singulair) metoprolol succinate 25 mg 25 mg PO QAM 08/15/19 07/07/21 History tablet,extended release 24 hr (Toprol XL) pjxfgtiz-dde-zlogz acid 0.4 1 tab PO QPM 08/15/19 07/07/21 History mg-lycopene 300 mcg-lutein 250 mcg tablet (Centrum Silver) escitalopram oxalate 10 mg tablet 10 mg PO HS tab 11/17/19 07/07/21 History (Lexapro) Basaglar KwikPen U-100 Insulin 100 30 unit SUBCUT .COMPLEX #15 ml NS 06/23/20 07/07/21 Rx unit/mL (3 mL) subcutaneous (insulin glargine) Contour Next Test Strips (blood #600 ea NS 07/04/20 05/23/21 Rx sugar diagnostic) aspirin 81 mg tablet,delayed 81 mg PO QAM 10/02/20 07/07/21 History release mirabegron 50 mg tablet,extended 50 mg PO QAM 10/02/20 07/07/21 History release 24 hr (Myrbetriq) calcium carb 300 mg-D3 800 1 tab PO QAM 11/23/20 07/07/21 History unit-mag ox 25 mg-picture copyist 0.5 mg-genesis-Zn tablet (Caltrate + D3 Plus Minerals) ascorbic acid (vitamin C) 500 mg 500 mg PO QPM 02/14/21 07/07/21 History capsule ferrous sulfate 325 mg (65 mg 325 mg PO QPM 02/14/21 07/07/21 History iron) tablet lisinopril 5 mg tablet (Zestril) 2.5 mg PO QAM tab 02/14/21 07/07/21 History pen needle, diabetic 32 gauge x #100 ea 02/14/21 05/23/21 Rx 5/32" (BD Ultra-Fine Mckenzie Pen Needle) cholecalciferol (vitamin D3) 1,250 50,000 unit PO .COMPLEX #14 cap 05/05/21 07/07/21 Rx mcg (50,000 unit) capsule Novolog U-100 Insulin aspart 100 80 unit SQ DAILY #8 vial NS 05/24/21 07/07/21 Rx unit/mL subcutaneous solution (insulin aspart U-100) ibuprofen 200 mg tablet 400 mg PO BID PRN 05/24/21 07/07/21 History latanoprostene bunod 0.024 % eye 1 drp OPHTHALMIC (EYE) PM 05/24/21 07/07/21 History drops (Vyzulta) teriparatide 20 mcg/dose (620 20 mcg SUBCUT HS 05/24/21 07/07/21 History mcg/2.48 mL) subcutaneous pen injector (Forteo) Patient History Medical History (Updated 07/07/21 @ 12:24 by Vaughn Maurice MD) Adrenal cortex hyperplasia 4 tumors present, under surveillance by Dr. Carson CAD (coronary artery disease) Mild, non-obstructive, follows with Dr. Israel Carotid artery stenosis <50% ICA stenosis B/L per 2017 carotid duplex Chronic allergic rhinitis Chronic anemia hgb 9-11 range per chart review Depression Diabetes IDDM GERD (gastroesophageal reflux disease) Hiatal hernia HLD (hyperlipidemia) HTN (hypertension) Kidney stones 2004 Osteoarthritis Sleep apnea Stopped using CPAP Spring 2020 (headaches) Urinary, incontinence, stress female V tach Remote hx (2009) Surgical History Difficult airway for intubation Patient reports she has had remote awake intubations in the past ([facility] [place]). Subsequently had Left fumur ORIF, left radial head ORIF (08/16/19) with Grade view 1, Glidescope #3 at [facility] (atraumatic attempt x1) H/O total colectomy History of cardiac cath 2016 > no stents History of cataract surgery R/L History of colonoscopy History of cystoscopy Left + stent History of esophagogastroduodenoscopy (EGD) History of eye surgery R/L Trabeculectomy History of herniorrhaphy History of repair of rotator cuff R/L S/P ankle arthrodesis Right S/P cholecystectomy S/P hysterectomy S/P small bowel resection + ileostomy, closure of fistula, perforations (2007) Status post open reduction and internal fixation (ORIF) of fracture Left fumur ORIF, left radial head ORIF (08/16/19): Grade view 1, Glidescope #3 at [facility] (atraumatic attempt x1) Family History Mother Stroke Diabetes Father Diabetes Stroke Social History Smoking Status: Never smoker Second Hand Exposure: Yes (BROTHER SMOKED); Do You Dip or Chew Tobacco: No; Hx Alcohol Use: No Hx Substance Use: No Preferred Language: Citizen Of [place] Communication Ability: Effective Wireless Engineer Required: No Beliefs That Will Affect Care: None marital status: / Current Living Situation: Alone current occupational status: retired How many Children do You have: 2 Other Information That Helps Us Care for You: No Feels Safe at Home: Yes Safety Concerns: Feels Safe At This Time Assistive Devices: Brace/Splint/Immobilizer and Glasses Assistive Devices Comment: MISSING SOME BACK TEETH NO DENTURES Review of Systems Review of Systems: All systems reviewed & are unremarkable except as noted in HPI & below Back and neck pain last 2 days prior to surgery - ?due to not taking Celebrex or ibuprofen Physical Exam Constitutional: WD/WN, vitals as above Eyes: + anicteric sclerae; normal pupil size ENMT: external ear and nose normal, oropharynx normal Neck: trachea midline, no thyromegaly Respiratory: normal respiratory effort, lungs clear to auscultation Cardiovascular: RRR, no murmur, no edema Gastrointestinal (Abdomen): Inspection/Auscultation: normal bowel sounds Percussion/Palpation: abdomen soft; abdomen nontender Ileostomy present Musculoskeletal: Dressing not removed around left knee, NV intact distally Skin: no rashes, warm and dry Neurologic: moves all extremities and awake; not confused Psychiatric: A+Ox3, euthymic affect Results & Data Results & Data ([facility]) Vital Signs (Past 12 Hours) Vital Signs Temp Pulse Pulse Resp BP BP Pulse Ox 07/07/21 10:48 36.9 C 88 16 135/81 95 07/07/21 09:55 36.2 C L 92 H 16 128/69 97 07/07/21 09:45 93 H 16 127/69 97 07/07/21 09:35 92 H 13 124/57 L 98 07/07/21 09:25 97 H 12 130/63 98 07/07/21 09:18 36.0 C L 99 H 17 122/60 99 07/07/21 06:24 37.5 C 93 H 18 119/98 95 PG Care Time/CCT Total # of Minutes Spent Total Time Spent with Patient: Total time spent is greater than 50% in coordination of care (as documented) at patient's floor/unit and/or counseling patient: Coding Level of Care Code 67885 Office/OBS Consult Lvl 4 Diagnoses Jade-prosthetic supracondylar fracture of femur M97.8XXA; Z96.659 Diabetes mellitus E11.9 HLD (hyperlipidemia) E78.5 HTN (hypertension) I10 Depression F32.9 Anemia D64.9 Anemia type: unspecified type Osteoporosis M81.0 GERD (gastroesophageal reflux disease) K21.9 Urinary, incontinence, stress female N39.3 Sleep apnea G47.30 Chronic allergic rhinitis J30.9 (1) Anemia Anemia type: unspecified type Qualified Code(s): D64.9 - Anemia, unspecified
[2021-07-07] MEDS ORDERED: CARBOHYDRATES FOR HYPOGLYCEMIA PO PRN (11:30)
[2021-07-07] MEDS ORDERED: GLUCOSE 10 TABS/TUBE PO PRN (11:30)
[2021-07-07] MEDS ORDERED: GLUCAGON FOR INJ 1 MG VIAL SQ PRN (11:30)
[2021-07-07] MEDS ORDERED: GLUCOSE 40% GEL 15 GM TUBE PO PRN (11:30)
[2021-07-07] MEDS ORDERED: DEXTROSE 50% 50 ML SYRINGE IV PRN (11:30)
[2021-07-07] MEDS ORDERED: INSULIN ASPART 100 UNITS/ML VIAL SC PRN (11:30)
--- NOTE | 2021-07-07 13:07 | Operative Report (OR) ---
DATE OF PROCEDURE: 07/07/2021 PREOPERATIVE DIAGNOSES: 1. Left distal femoral nonunion. 2. Retained hardware. 3. Distal femoral bone cyst. POSTOPERATIVE DIAGNOSES: 1. Left distal femoral nonunion. 2. Retained hardware. 3. Distal femoral bone cyst. PROCEDURE: 1. Left distal femoral curettage and application of Augment bone graft substitute. 2. Allograft of distal femoral nonunion. 3. Curettage and removal of bone cyst, distal femur. SURGEON: Florian Bobby DO. MANAGER HOME IMPROVEMENT: Daniel Blair PA-C who was present for patient positioning, sterile prep and drape, management of retractors and instruments. He was present through the critical portions of the case i ncluding wound closure, application of sterile dressing and transport of the patient to recovery. ANESTHESIA: Spinal MAC with local. SPECIMENS: Bone cyst, left distal femur. DRAINS: None. COMPLICATIONS: None. BLOOD LOSS: 25 mL. PERTINENT HISTORY: This is a 81-year-old female who sustained a supracondylar distal femoral fractur e and she underwent a successful ORIF of the distal femur; however, continued to have pain in the dis alicja femur. After conservative management had failed, she had radiographs and subsequent repeat CT sca n demonstrating formation of a nonunion and bone cyst in the distal femur. The hardware appeared to be intact. The patient was then scheduled for surgery as indicated. All potential risks, benefits, complications, alternatives and potential for incomplete relief of sym ptoms, need for further surgery, DVT, PE, , persistent pain, swelling, scarring, weakness, neuro vascular injury, wound complications, hardware failure, nonunion, malunion, bone fracture were discus sed with the patient. The patient decided to proceed with the procedure as indicated. DESCRIPTION OF PROCEDURE: The patient was administered spinal anesthetic, taken to the operative shantell te and placed supine on the operating table. After review of consent and identification of proper op erative site, the patient was sedated. Tourniquet was applied high on the left thigh over cast paddi ng. Left lower extremity was then sterilely prepped and draped in the usual fashion, elevated and ex sanguinated with an Esmarch bandage and tourniquet inflated to 350 mmHg. Next, after a surgical timeout was performed, the 10 blade scalpel was used to make an incision on th e anterior aspect of the left distal femur. Incision was carefully deepened through the skin and sub cutaneous tissue. Meticulous hemostasis was achieved with electrocautery. Full thickness skin flaps were developed. The fascia was then incised in line with the skin incision and retracted with [employer] [place] retractors. Next, the quadriceps tendon was then incised in line with the skin incision and the n carefully retracted with [employer]. The joint capsule was then identified and incised and electro cautery was used to maintain hemostasis. Incision was performed down to the level of the periosteum, which was then split in line with the ski n incision with a 10 blade scalpel, retracted with a Hohmann, and under live fluoroscopic assistance, the site of the nonunion with bone cyst was identified. Next, a corticotomy was created with a 10 mm osteotome and mallet. Trapdoor was then created, three sides had been pierced and then the fourth site was scored. The trapdoor bone was then retracted and protected. Next, a curette was then used to curettage the bone cyst and the bone cyst was then excised with a DeBakey forceps and then passed off as specimen. Next, the nonunion site was then further curetted to encourage bony bleeding and irrigated with steri le saline after bone marrow aspirate was obtained from the first scrapings of the distal femoral wall . Approximately, 5 mL of marrow aspirate was obtained. Next, the site was then irrigated with pulse lavage until clear. The cyst cavity was plainly seen and visualized. Next, 30 mL of cancellous bon e chips were partially morcellized and impacted followed by implantation of Augment bone graft substi tute approximately 3 mL with calcium sulfate and liquid into the cavity, and this was further impacte d with a mallet and a bone tamp until some degree of structural integrity and fill was achieved. Nex t, the marrow aspirate was then injected into the distal femoral cyst site and then the trapdoor bone was then replaced and then gently impacted back into its near anatomic location using a bone tamp. Next, the periosteum and joint capsule was closed over the anterior aspect of the distal femur with # 1 Vicryl. The quadriceps tendon was then closed using interrupted #1 Vicryl. The fascia was closed using #1 Vicryl and the dermis was closed using buried interrupted 2-0 Vicryl and the skin was closed with skin paresh. A sterile compressive dressing was applied after injection with local anesthetic . The tourniquet was released. The patient was awakened and taken to recovery in stable condition. Job ID: [id number]
[2021-07-07] MEDS: ACETAMINOPHEN 500 MG TAB PO SCH ×2 (13:11→21:02)
[2021-07-07] MEDS: ATORVASTATIN 10 MG TAB PO SCH (13:11)
[2021-07-07] MEDS: NovoLOG INSULIN PUMP SCH ×3 (13:13→21:42)
[2021-07-07] MEDS ORDERED: PNEUMOCOCCAL POLYSACCHARIDES 25 MCG/0.5 ML VIAL/SYR IM ONE (14:00)
[2021-07-07] MEDS: oxyCODONE HCL 10 MG TABCR (OxyCONTIN) PO SCH (14:44)
[2021-07-07] MEDS: ceFAZolin 2000MG 2,000 MG/15 ML SYR IV SCH (17:48)
[2021-07-07] MEDS: DOCUSATE SODIUM 100 MG CAP PO SCH (20:56)
[2021-07-07] MEDS: SENNA 8.6 MG TAB PO SCH (20:56)
[2021-07-07] MEDS: FERROUS SULFATE 325 MG TAB PO SCH (20:57)
[2021-07-07] MEDS: BRIMONIDINE TARTRATE-P 0.15% 5 ML BTL OP SCH (20:58)
[2021-07-07] MEDS: ESCITALOPRAM OXALATE 10 MG TAB PO SCH (21:00)
[2021-07-07] MEDS: MULTIVITAMIN TAB PO SCH (21:01)
[2021-07-07] MEDS: ASCORBIC ACID 500 MG TAB PO SCH (21:01)
[2021-07-07] MEDS: ASPIRIN 81 MG ECTAB PO SCH (21:03)
[2021-07-07] MEDS ORDERED: OPTIRAY 320 125ml IV ONE (22:51)
[2021-07-07 22:54] LABS: Hematocrit (blood only) 31.8 % (37-47); Hemoglobin 10.4 g/dL (12.0-16.0); Immature Granulocytes # (auto) 0.03 K/uL (0.00-0.02); Immature Granulocytes % (auto) 0.4 %; Lymphocytes # (auto) 0.74 K/uL (1.2-3.4); Lymphocytes % (auto) 10.9 %; Mean Corpuscular Hemoglobin 30.1 pg (25-34); Mean Corpuscular Hgb Conc 32.7 g/dL (32-36); Mean Corpuscular Volume 91.9 fL (80-100); Mean Platelet Volume 9.5 fL (7.4-10.4); Monocytes # (auto) 0.41 K/uL (0.11-0.59); Neutrophils # (auto) 5.64 K/uL (1.4-6.5); Neutrophils % (auto) 82.7 %; Platelet Count 106 K/uL (130-400); RDW Coefficient of Variation 14.1 % (11.5-14.5); RDW Standard Deviation 46.7 fL (36.4-46.3); Red Blood Count 3.46 M/uL (4.2-5.4); White Blood Count 6.82 K/uL (4.8-10.8)
[2021-07-08] MEDS: oxyCODONE HCL IR 5 MG TAB (IMMEDIATE RELEASE) PO PRN ×4 (00:27→19:51)
[2021-07-08] MEDS: ceFAZolin 2000MG 2,000 MG/15 ML SYR IV SCH (00:59)
[2021-07-08] MEDS: oxyCODONE HCL 10 MG TABCR (OxyCONTIN) PO SCH ×2 (01:58→14:31)
[2021-07-08] MEDS: ACETAMINOPHEN 500 MG TAB PO SCH ×3 (06:21→21:02)
[2021-07-08 07:12] LABS: Hematocrit (blood only) 31.7 % (37-47); Hemoglobin 10.2 g/dL (12.0-16.0); Mean Corpuscular Hemoglobin 29.7 pg (25-34); Mean Corpuscular Hgb Conc 32.2 g/dL (32-36); Mean Corpuscular Volume 92.4 fL (80-100); Mean Platelet Volume 9.7 fL (7.4-10.4); Platelet Count 104 K/uL (130-400); RDW Coefficient of Variation 14.2 % (11.5-14.5); RDW Standard Deviation 48.5 fL (36.4-46.3); Red Blood Count 3.43 M/uL (4.2-5.4); White Blood Count 6.31 K/uL (4.8-10.8)
[2021-07-08 07:34] LABS: BUN Creatinine Ratio 17.8 (10-20); Calcium 8.2 mg/dl (8.5-10.1); Creatinine Clr Calc Pharmacy 77.5 ml/min; Est GFR (African American) 96.9 ml/min; Est GFR (Non-African American) 83.6 ml/min; Potassium 3.6 mmol/L (3.5-5.1)
[2021-07-08] MEDS ORDERED: INSULIN ASPART PER UNIT SQ SCH (09:00)
[2021-07-08] MEDS ORDERED: MULTIVITAMIN TAB PO SCH (09:00)
[2021-07-08] MEDS: CALCIUM 600MG + VIT D 400 IU TAB PO SCH (09:01)
[2021-07-08] MEDS: MONTELUKAST SODIUM 10 MG TABLET PO SCH (09:01)
[2021-07-08] MEDS: lisinopril 2.5 MG TAB PO SCH (09:01)
[2021-07-08] MEDS: CYANOCOBALAMIN 500 MCG TABLET (VITAMIN B-12) PO SCH (09:01)
[2021-07-08] MEDS: PANTOprazole 40 MG TAB PO SCH (09:01)
[2021-07-08] MEDS: METOPROLOL SUCC 25MG EXT REL TAB PO SCH (09:02)
[2021-07-08] MEDS: DOCUSATE SODIUM 100 MG CAP PO SCH ×2 (09:02→21:01)
[2021-07-08] MEDS: MIRABEGRON ER 25 MG TAB PO SCH (09:02)
[2021-07-08] MEDS: BRIMONIDINE TARTRATE-P 0.15% 5 ML BTL OP SCH ×2 (09:02→21:04)
[2021-07-08] MEDS: ASPIRIN 81 MG ECTAB PO SCH ×2 (09:02→21:04)
[2021-07-08] MEDS: NovoLOG INSULIN PUMP SCH ×4 (09:03→21:01)
--- NOTE | 2021-07-08 09:35 | CT Scan Report ---
CT ANGIOGRAPHY OF THE CHEST, PULMONARY EMBOLUS PROTOCOL CLINICAL HISTORY: Chest pain. Evaluate for pulmonary embolus. COMPARISON STUDY: Chest radiograph June 09, 2021. TECHNIQUE: Following IV administration of 119 mL of Optiray, helical axial images of the chest were o btained utilizing the pulmonary embolus protocol. Maximal intensity projections and sagittal and cor onal reformats were viewed on an independent 3D workstation. IV contrast was administered without co mplication. Automated exposure control was utilized for the study. A dose lowering technique was ut ilized adhering to the principles of ALARA. CT DOSE: 511.26 mGy.cm FINDINGS: No pulmonary emboli are identified although this exam is mildly compromised by respiratory motion. Mild cardiomegaly is noted. There is no thoracic aortic dissection. Contrast within chest wa ll collaterals is noted. Elevation of the right hemidiaphragm is noted. No consolidation is identifie d to suggest pneumonia. Groundglass and linear opacities favor atelectasis. Central airways are paten t. Splenomegaly is unchanged since CT of October 02, 2020. Partially visualize bilateral adrenal nod ules are also unchanged. IMPRESSION: 1. No pulmonary emboli identified although exam mildly compromised by motion artifact. 2. No consolidation to suggest pneumonia. 3. Cardiomegaly. ACT 112: Negative or not required by law. Electronically signed by: Reno Phelps M.D. 07/08/2021 9:34 AM
--- NOTE | 2021-07-08 09:50 | Orthopedic Progress Note ---
Date of Service July 08, 2021 Assessment & Plan (1) Fracture of distal end of left femur with nonunion: Plan: Left distal femoral curettage and application of Augment bone graft substitute. Allograft of distal femoral nonunion. Curettage and removal of bone cyst, distal femur. CT scan neg for PE DVT prophylaxis - ASA 81 BID PT/OT- NWB left lower extremity, knee immobilizer Plan for discharge to SNF when medically stable Admission and Anticipated Discharge Date Admission Date: July 07, 2021 Subjective Patient resting in chair finishing breakfast. Denies any complaints this a.m. of CP, SOB, dizziness, calf pain. Physical Exam Physical Exam: Toes mobile, NVI. Calves soft, non tender. Dressing in place. Results & Data ([facility]) Vital Signs (Past 12 Hours) Vital Signs Temp Pulse Resp BP Pulse Ox 07/08/21 07:08 37.9 C H 116 H 18 149/68 H 96 07/08/21 03:11 37.6 C H 107 H 18 130/75 96 07/08/21 00:28 37.0 C 108 H 07/08/21 00:07 37.4 C 109 H 16 138/72 96
[2021-07-08 09:57] LABS: Appearance Urine Clear (Clear); Bacteria Urine Automated Negative (Negative); Bilirubin Urine Negative (Negative); Blood Urine 2+ (Negative); Color Urine Yellow; Epithelial Cell Urine Auto 20-30 /lpf (0-5); Glucose Urine UA Negative (Negative); Ketones Urine Negative (Negative); Leukocyte Esterase Urine Negative (Negative); Nitrite Urine Negative (Negative); Protein Urine Trace (Negative); Specific Gravity Urine > 1.045 (1.000-1.030); Urobilinogen Urine Negative (Negative)
--- NOTE | 2021-07-08 09:59 | Pharmacy Report ---
Pharmacy Glycemic Short Note 2 - Date of Service July 08, 2021 - Glycemic Short BSG Results (Last 24 hours): 07/07/21 07/07/21 07/07/21 12:07 17:02 20:37 Glucose POC Glucose 168 H 120 H 147 H 07/07/21 07/08/21 07/08/21 23:43 06:32 08:04 Glucose 147 H POC Glucose 209 H 150 H OUTPATIENT ANTIDIABETIC REGIMEN: * Medtronic MiniMed insulin pump with NovoLog * Basal ~ 28 units/day * SF ~ 25mg/dl/unit for BSG > 130 * CR ~ 8 (but varies throughout the day) * A1c = 5.3% 07-05-21 (pt has a LOW glycemic index - BSGs do not correlate with A1c. A1c is falsely low) ASSESSMENT: * Discussed with patient today about blood sugars. She was wondering if she should increase basal rate since fasting BSG was 150 mg/dL. * I recommended not doing so as patient had much occur yesterday. Monitor BSGs f or now then discuss tomorrow. * Did explain that we do not typically change basal rates inhouse too much. BACKGROUND * Met with patient today and discussed inaptient glycemic control with pt own insulin pump * Site last changed 2 days ago - will need changed tomorrow AM. She has all of her supplies but will need insulin provided by pharmacy * Pt does not have a cgm with her- agreeable to have RN check BSGs with hospital meter PLAN FOR INPATIENT GLYCEMIC CONTROL: Pt is to manage BSGs with insulin pump per outpatient settings. * RN will have patient read and sign agreement [id number] Insulin Pump Therapy Patient Agreement. * RN will provide and explain form [id number] Flowsheet for Patient * Patient will document their insulin dose given on [id number] which is kept at the bedside, available to caregivers upon request, and which becomes part of the permanent medical record. If at any time the patients condition evidences that he/she is not able to manage the insulin pump (i.e. frequent hypo/hyperglycemia) Pharmacy will assume glycemic control by discontinuing the pump & managing with SQ basal bolus insulin regimen for the interim. PLAN FOR DISCHARGE: * Pt to continue to f/u with [id number].
--- NOTE | 2021-07-08 12:13 | Electrocardiogram Report ---
Test Reason : Blood Pressure : / mmHG Vent. Rate : 112 BPM Atrial Rate : 112 BPM P-R Int : 162 ms QRS Dur : 132 ms QT Int : 350 ms P-R-T Axes : 034 -31 040 degrees QTc Int : 477 ms Sinus tachycardia Left axis deviation Right bundle branch block Abnormal ECG When compared with ECG of 09-JUN-2021 13:42, Nonspecific T wave abnormality no longer evident in Lateral leads Confirmed by Jay Thomas ([id number]) on 07/08/2021 12:13:07 PM Referred By: Florian Bobby Confirmed By:Keshawn Thomas
--- NOTE | 2021-07-08 13:52 | Hospitalist Progress Note ---
Date of Service July 08, 2021 Assessment & Plan (1) Fever: Plan: - Found to be febrile last evening at 38.3 and reduced overnight. 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 - Vitals stable - tachycardia could be from pain as she said she had a lot yesterday - No known tick bites and states she doesn't go outside much - unlikely tick- borne illness - Encourage ambulation; incentive spirometry - Tylenol PRN - Plan is for rehab on discharge - would anticipate they may require her being afebrile x 24 hours before acceptance (2) Jade-prosthetic supracondylar fracture of femur: Plan: - Surgical management per primary team - DVT prophylaxis - ASA 81 mg BID (3) Diabetes mellitus: Plan: - HbA1C 5.3, well controlled on currently insulin pump - Glycemic management following (4) HLD (hyperlipidemia): Plan: - Continue atorvastatin 10mg Q2D (5) HTN (hypertension): Plan: - STABLE - Continue lisinopril 2.5mg PO daily (6) Depression: Plan: - Continue Lexapro 10mg PO daily (7) Anemia: Plan: - Normocytic. Hgb 10.2 ?anemia of chronic disease likely - No indication for transfusion at this time (8) Osteoporosis: Plan: - Continue Forteo 20 mcg PO daily (9) GERD (gastroesophageal reflux disease): Plan: - Continue Nexium or hospital formulary equivalent (10) Urinary, incontinence, stress female: Plan: - Continue Myrbetriq 50mg PO QAM (11) Sleep apnea: Plan: - Stopped CPAP Spring 2020 due to headaches and sore throat. Requests to use it here however. (12) Chronic allergic rhinitis: Plan: - Continue montelukast 10mg PO daily Plan: VTE Prophylaxis -ASA BID, no prior history of DVT/PE Disposition - per orthopedics Currently no infectious etiology to explain fever - suspect atelectasis given how soon after surgery this occurred. Currently afebrile. Suspect facilities may not accept until afebrile x 24 hours; Hospitalists will continue to follow Admission and Anticipated Discharge Date Admission Date: July 07, 2021 Subjective Pt reports feeling fatigued today but otherwise well. Pain is better controlled today compared to yesterday. She did have a fever overnight with hypoxia and tachycardia. Has improved through the morning. Currently afebrile. So far work- up has been unremarkable. Review of Systems Review of Systems: REVIEW OF SYSTEMS General/Constitutional: + fever (overnight now resolved), + fatigues ENT: Denies visual changes, nasal drainage, hearing loss, sore throat, trouble swallowing Cardiovascular: Denies chest pain, palpitations, edema Respiratory: + cough with deep breaths; Denies sputum, SOB, wheezing, orthopnea GI: Denies nausea, vomiting, abdominal pain, constipation, diarrhea, melena/hematochezia : Denies dysuria, frequency, hematuria Musculoskeletal: + LLE (improved today with pain regimen) Neurologic: Denies dizziness/lightheadedness Hematologic/Lymphatic: Denies bleeding/clotting abnormalities Skin: Denies rash, itch, known tick bites Physical Exam Physical Exam: PHYSICAL EXAM General Appearance: WDWN in NAD who is A&O x 3 HEENT: Head is normocephalic/atraumatic; Hearing grossly intact; Mucous membranes moist; Pharynx negative for exudate/lesions Neck: Supple; Trachea midline; Neg JVD; Neg lymphadenopathy Heart: RRR with no M/G/R Lungs: CTA in all lung mcelroy bilaterally; Respirations unlabored; Neg accessory muscle use Abdomen: Soft, non-tender, non-distended; Positive BS x 4 quadrants Extremities: Neg cyanosis or edema; LLE with knee immobilizer and YOLANDE wrap placed Neurological: Speech clear; Gross motor/sensory function intact; Neg focal neurologic deficits Psychiatric: Appropriate mood/affect Skin: Normal Color; Warm/Dry; Neg rashes, ecchymosis, lacerations/ulcerations Results & Data Results & Data ([facility]) Vital Signs (Past 12 Hours) Vital Signs Temp Pulse Resp BP Pulse Ox 07/08/21 10:59 37.2 C 96 H 16 108/65 97 07/08/21 09:54 36.9 C 07/08/21 07:08 37.9 C H 116 H 18 149/68 H 96 07/08/21 03:11 37.6 C H 107 H 18 130/75 96 PG Care Time/CCT Total # of Minutes Spent Total Time Spent with Patient: Total time spent is greater than 50% in coordination of care (as documented) at patient's floor/unit and/or counseling patient: Coding Level of Care Code 69369 Inpt Consult Level 3 Diagnoses Jade-prosthetic supracondylar fracture of femur M97.8XXA; Z96.659 Diabetes mellitus E11.9 HLD (hyperlipidemia) E78.5 HTN (hypertension) I10 Depression F32.9 Anemia D64.9 Anemia type: unspecified type Osteoporosis M81.0 GERD (gastroesophageal reflux disease) K21.9 Urinary, incontinence, stress female N39.3 Sleep apnea G47.30 Chronic allergic rhinitis J30.9 Fever R50.9 (1) Anemia Anemia type: unspecified type Qualified Code(s): D64.9 - Anemia, unspecified
[2021-07-08] MEDS: SENNA 8.6 MG TAB PO SCH (21:01)
[2021-07-08] MEDS: FERROUS SULFATE 325 MG TAB PO SCH (21:01)
[2021-07-08] MEDS: ASCORBIC ACID 500 MG TAB PO SCH (21:03)
[2021-07-08] MEDS: ESCITALOPRAM OXALATE 10 MG TAB PO SCH (21:03)
[2021-07-08] MEDS: MULTIVITAMIN TAB PO SCH (21:03)
[2021-07-09] MEDS: oxyCODONE HCL 10 MG TABCR (OxyCONTIN) PO SCH (02:03)
[2021-07-09 05:25] LABS: Hematocrit (blood only) 29.4 % (37-47); Hemoglobin 9.5 g/dL (12.0-16.0); Mean Corpuscular Hemoglobin 30.3 pg (25-34); Mean Corpuscular Hgb Conc 32.3 g/dL (32-36); Mean Corpuscular Volume 93.6 fL (80-100); Mean Platelet Volume 9.5 fL (7.4-10.4); Platelet Count 104 K/uL (130-400); RDW Coefficient of Variation 14.2 % (11.5-14.5); RDW Standard Deviation 48.8 fL (36.4-46.3); Red Blood Count 3.14 M/uL (4.2-5.4); White Blood Count 5.58 K/uL (4.8-10.8)
[2021-07-09] MEDS: ACETAMINOPHEN 500 MG TAB PO SCH ×2 (05:25→13:10)
[2021-07-09 06:11] LABS: BUN Creatinine Ratio 16.7 (10-20); Calcium 8.9 mg/dl (8.5-10.1); Creatinine Clr Calc Pharmacy 64.9 ml/min; Est GFR (African American) 81.3 ml/min; Est GFR (Non-African American) 70.1 ml/min; Potassium 3.6 mmol/L (3.5-5.1)
[2021-07-09] MEDS: NovoLOG INSULIN PUMP SCH ×3 (08:51→17:46)
[2021-07-09] MEDS: BRIMONIDINE TARTRATE-P 0.15% 5 ML BTL OP SCH (08:55)
[2021-07-09] MEDS: METOPROLOL SUCC 25MG EXT REL TAB PO SCH (08:58)
[2021-07-09] MEDS: MONTELUKAST SODIUM 10 MG TABLET PO SCH (08:58)
[2021-07-09] MEDS: CALCIUM 600MG + VIT D 400 IU TAB PO SCH (08:58)
[2021-07-09] MEDS: ATORVASTATIN 10 MG TAB PO SCH (08:58)
[2021-07-09] MEDS: DOCUSATE SODIUM 100 MG CAP PO SCH ×2 (08:58→09:02)
[2021-07-09] MEDS: MIRABEGRON ER 25 MG TAB PO SCH (08:58)
[2021-07-09] MEDS: lisinopril 2.5 MG TAB PO SCH (08:59)
[2021-07-09] MEDS: CYANOCOBALAMIN 500 MCG TABLET (VITAMIN B-12) PO SCH (08:59)
[2021-07-09] MEDS: PANTOprazole 40 MG TAB PO SCH (08:59)
[2021-07-09] MEDS: ASPIRIN 81 MG ECTAB PO SCH (08:59)
--- NOTE | 2021-07-09 09:23 | Orthopedic Progress Note ---
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 Allograft of distal femoral nonunion. Curettage and removal of bone cyst, distal femur. CT scan neg for PE Blood cultures show no growth at this time DVT prophylaxis - ASA 81 BID PT/OT- NWB left lower extremity, knee immobilizer Plan for discharge to SNF when medically stable Admission and Anticipated Discharge Date Admission Date: July 07, 2021 Subjective Patient resting comfortably in bed. Feeling better today. Denies chest pain, dizziness, lightheadedness. Physical Exam Physical Exam: Toes mobile, NVI. Calves soft, non tender. No active signs infection to left knee. Immobilizer in place Results & Data ([facility]) Vital Signs (Past 12 Hours) Vital Signs Temp Pulse Resp BP Pulse Ox 07/09/21 07:31 37 C 98 H 16 107/57 L 98 07/08/21 22:26 36.4 C L 99 H 15 101/50 L 97
--- NOTE | 2021-07-09 10:19 | Hospitalist Progress Note ---
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 - Vitals stable - No known tick bites and states she doesn't go outside much - unlikely tick- borne illness - Encourage ambulation; incentive spirometry - Tylenol PRN - Will repeat CXR to assess for any development of infiltrates - Hold on Abx as of now - Plan is for rehab on discharge - would anticipate they may require her being afebrile x 24 hours before acceptance (2) Jade-prosthetic supracondylar fracture of femur: Plan: - Surgical management per primary team - DVT prophylaxis - ASA 81 mg BID (3) Diabetes mellitus: Plan: - HbA1C 5.3, well controlled on currently insulin pump - Glycemic management following (4) HLD (hyperlipidemia): Plan: - Continue atorvastatin 10mg Q2D (5) HTN (hypertension): Plan: - STABLE - Continue lisinopril 2.5mg PO daily and Toprol XL 25 mg daily (6) Depression: Plan: - Continue Lexapro 10mg PO daily (7) Anemia: Plan: - Normocytic. Hgb 9.5 ?anemia of chronic disease likely - No indication for transfusion at this time -- Has required transfusions in the past (8) Osteoporosis: Plan: - Continue Forteo 20 mcg PO daily (9) GERD (gastroesophageal reflux disease): Plan: - Continue Nexium or hospital formulary equivalent (10) Urinary, incontinence, stress female: Plan: - Continue Myrbetriq 50mg PO QAM (11) Sleep apnea: Plan: - Stopped CPAP Spring 2020 due to headaches and sore throat. (12) Chronic allergic rhinitis: Plan: - Continue montelukast 10mg PO daily Plan: VTE Prophylaxis -ASA BID, no prior history of DVT/PE Disposition - per orthopedics Currently no infectious etiology to explain fever - suspect atelectasis given how soon after surgery this occurred. Currently afebrile. Suspect facilities may not accept until afebrile x 24 hours; Await CXR; Hospitalists will continue to follow Admission and Anticipated Discharge Date Admission Date: July 07, 2021 Subjective Pt reports feeling well today. Pain continues to be controlled with regimen and she was up to the bathroom this AM. She did have a subsequent low grade fever yesterday afternoon. Last fever was 1450 on 08 July. No skin issues, stool from ileostomy is normal consistency for her, only coughs with deep breathing, no PE. On exam she does cough after her first deep inhale in then no further coughing of subsequent breaths. She states she is a bit achy but does not feel fevered or chilled. Review of Systems Review of Systems: REVIEW OF SYSTEMS General/Constitutional: + achy; Denies fever/chills; denies fatigue ENT: Denies visual changes, nasal drainage, hearing loss, sore throat, trouble swallowing Cardiovascular: Denies chest pain, palpitations, edema Respiratory: + cough with deep breaths; Denies sputum, SOB, wheezing, orthopnea GI: Denies nausea, vomiting, abdominal pain, constipation, diarrhea, melena/hematochezia; Denies changes in stool consistency from ileostomy : Denies dysuria, frequency, hematuria Musculoskeletal: + LLE (improved today with pain regimen) Neurologic: Denies dizziness/lightheadedness Skin: Denies rash, itch Physical Exam Physical Exam: PHYSICAL EXAM General Appearance: WDWN in NAD who is A&O x 3 HEENT: Head is normocephalic/atraumatic; Hearing grossly intact; Mucous membranes moist; Pharynx negative for exudate/lesions Neck: Supple; Trachea midline; Neg JVD Heart: RRR with no M/G/R Lungs: CTA in all lung mcelroy bilaterally; Respirations unlabored; Neg accessory muscle use; coughed with first deep inhale then no subsequent coughing Abdomen: Soft, non-tender, non-distended; Positive BS x 4 quadrants; +ileostomy Extremities: Neg cyanosis or edema; LLE with knee immobilizer and YOLANDE wrap placed Neurological: Speech clear; Gross motor/sensory function intact; Neg focal neurologic deficits Psychiatric: Appropriate mood/affect Skin: Normal Color; Warm/Dry; Neg rashes, ecchymosis, lacerations/ulcerations Results & Data Results & Data ([facility]) Vital Signs (Past 12 Hours) Vital Signs Temp Pulse Resp BP Pulse Ox 07/09/21 07:31 37 C 98 H 16 107/57 L 98 07/08/21 22:26 36.4 C L 99 H 15 101/50 L 97 PG Care Time/CCT Total # of Minutes Spent Total Time Spent with Patient: Total time spent is greater than 50% in coordination of care (as documented) at patient's floor/unit and/or counseling patient: Coding Level of Care Code 80279 Inpt Consult Level 2 Diagnoses Fever R50.9 Jade-prosthetic supracondylar fracture of femur M97.8XXA; Z96.659 Diabetes mellitus E11.9 HLD (hyperlipidemia) E78.5 HTN (hypertension) I10 Depression F32.9 Anemia D64.9 Anemia type: unspecified type Osteoporosis M81.0 GERD (gastroesophageal reflux disease) K21.9 Urinary, incontinence, stress female N39.3 Sleep apnea G47.30 Chronic allergic rhinitis J30.9 (1) Anemia Anemia type: unspecified type Qualified Code(s): D64.9 - Anemia, unspecified
--- NOTE | 2021-07-09 10:33 | XRay Report ---
XR chest 1V portable CLINICAL HISTORY: Fever; Cough COMPARISON STUDY: Chest CT July 07, 2021. FINDINGS: Elevation of the right hemidiaphragm is unchanged. There is no pneumothorax or pleural effu suha. Cardiomediastinal silhouette is stable. There is no evidence for pulmonary edema. No consolidat ion is identified. Apparent left lower lung opacity is likely due to overlying soft tissues. IMPRESSION: No acute cardiopulmonary findings. No significant change in appearance of the chest. ACT 112: Negative or not required by law. Electronically signed by: Reno Phelps M.D. 07/09/2021 10:32 AM
[2021-07-09] MEDS: oxyCODONE HCL IR 5 MG TAB (IMMEDIATE RELEASE) PO PRN ×2 (12:13→16:28)
[2021-07-09 18:18] VITALS: BP 110/61; PULSE 92; TEMP 98.6; O2SAT 97
[2021-07-09] MEDS ORDERED: oxyCODONE HCL IR 5 MG TAB (IMMEDIATE RELEASE) PO STA (19:17)
== END 2021-07-09 20:56 ==
LOC: ASU 05:37 → 3E 05:37